=== PATIENT | female | born 1985 | race Caucasian/White ===

== ENCOUNTER 2019-12-04 22:59 | Emergency (ER) | payer OTHER ==
[~2019-12-04] VITALS: Ht 177 cm; Wt 150.0 kg
[~2019-12-04 22:59] MED LIST: AMOX500C2; CPR500T PO; DOCU100T7; FLINTSTONE1 TAB.CHE4 PO; FRS325T; HYDR-3720 PO; HYDR1TAB PO; IBP200T PO; IBP800T; MTF500T PO; MUPI22OI TP; PROP1TAB77; SULF1TAB38; SULF1TAB38 PO; [UNRECOGNIZED DRUG - REMARK]
--- OUTSIDE RECORDS SUMMARY | 2019-12-04 23:05 | XMS REPORT | Continuity of Care Document ---
Author Organization Unknown Address Unknown Phone Unavailable Allergies There is no data. Medications There is no data. Problems There is no data. Procedures There is no data. Results Test Result Range VITAMIN D, 25-H - 09/30/19 10:20 VITAMIN D,25-OH,TOTAL,IA 14 ng/mL 30-10 0 Encounters ACCT No. Visit Date/Time Discharge Status Pt. Type Provider Facility Loc./Unit Complaint [id number] 10/23/2019 16:00:00 10/23/2019 23:59: 59 CLS Outpatient IDA WATTERS [facility] [id number] 09/30/2019 09:40:00 Document Registration
[2019-12-04] MEDS ORDERED: LACTATED RINGERS 1,000 ML IV ONE (23:10)
[2019-12-04] MEDS ORDERED: ONDANSETRON 4 MG/2 ML (SDV) Z0FRAN IVP ONE (23:15)
[2019-12-04 23:16] LABS: BILIRUBIN,URINE NEGATIVE (NEGATIVE); CLARITY,URINE CLOUDY; COLOR,URINE RED; GLUCOSE, URINE (UA) TRACE (NEGATIVE); KETONES,URINE TRACE (NEGATIVE); LEUKOCYTE ESTERASE ,URINE NEGATIVE (NEGATIVE); NITRITE,URINE POSITIVE (NEGATIVE); PROTEIN,URINE 2+ (NEGATIVE)
[2019-12-04 23:24] LABS: BASOPHILS % (AUTO) 0 % (0-10); EOSINOPHILS # (AUTO) 0.1 10^3/uL (0.0-0.3); EOSINOPHILS % (AUTO) 1 % (0-10); HEMATOCRIT 40 % (35-52); HEMOGLOBIN 13.4 G/DL (11.5-16.0); LYMPHOCYTES # (AUTO) 1.5 X 10^3 (1.0-4.0); LYMPHOCYTES % (AUTO) 13 % (12-44); MEAN CORPUSCULAR HEMOGLOBIN 28 PG (25-34); MEAN CORPUSCULAR HGB CONC 33 G/DL (32-36); MEAN CORPUSCULAR VOLUME 83 FL (80-99); MEAN PLATELET VOLUME 11.3 FL (7.4-10.4); MONOCYTES # (AUTO) 0.7 X 10^3 (0.0-1.0); MONOCYTES % (AUTO) 6 % (0-12); NEUTROPHILS # (AUTO) 9.6 X 10^3 (1.8-7.8); NEUTROPHILS % (AUTO) 81 % (42-75); PLATELET COUNT 291 10^3/uL (130-400); RED CELL DISTRIBUTION WIDTH 14.4 % (10.0-14.5); WHITE BLOOD COUNT 11.9 10^3/uL (4.3-11.0)
[2019-12-04 23:25] LABS: BACTERIA,URINE TRACE /HPF; RBC,URINE TNTC /HPF
[2019-12-04 23:30] LABS: AMPHETAMINE SCREEN, URINE NEGATIVE (NEGATIVE); BARBITURATE SCREEN URINE NEGATIVE (NEGATIVE); BENZODIAZEPINES SCREEN URINE NEGATIVE (NEGATIVE); CANNABINOID SCREEN, URINE NEGATIVE (NEGATIVE); COCAINE SCREEN URINE NEGATIVE (NEGATIVE); METHADONE STAT NEGATIVE (NEGATIVE); METHAMPHETAMINE SCREEN URINE S NEGATIVE (NEGATIVE); OPIATE SCREEN URINE NEGATIVE (NEGATIVE); OXYCODONE STAT NEGATIVE (NEGATIVE); PROPOXYPHENE STAT NEGATIVE (NEGATIVE); TRICYCLIC ANTIDEPRESSANTS SCRE NEGATIVE (NEGATIVE)
[2019-12-04 23:35] LABS: ALBUMIN 4.1 GM/DL (3.2-4.5); CHLORIDE 108 MMOL/L (98-107); POTASSIUM 4.3 MMOL/L (3.6-5.0); SODIUM 138 MMOL/L (135-145)
[2019-12-04 23:36] LABS: AMYLASE 49 U/L (25-125)
[2019-12-04 23:37] LABS: GLUCOSE 147 MG/DL (70-105)
--- NOTE | 2019-12-04 23:37 | ED Abdominal Pain ---
General Chief Complaint: Abdominal/GI Problems Stated Complaint: ABD PAIN Nursing Triage Note: Pt ambulates to RM 5 with c/o diffused abd pain/N/V since 1300 today unrelieved with ibuprofen. Pt denies any fever/chills at this time. Sepsis Screen: No Definite Risk Source of Information: Patient History of Present Illness Date Seen by Provider: Dec 04, 2019 Time Seen by Provider: 23:10 Initial Comments PT ARRIVES VIA POV FROM HOME C/O ABDOMINAL PAIN STATES SHE STARTED HER PERIOD YESTERDAY ( NORMAL, NO CONTROL ) STATES SHE HAS ALWAYS HAD VERY HEAVY AND VERY PAINFUL PERIODS SINCE SHE STARTED A TEENAGER, AND STATES PAIN IS ALWAYS REALLY BAD IN RLQ WITH HER PERIODS STATES SHE TAKES IBUPROFEN EVERY 6 HOURS SINCE YESTERDAY FOR MENSTRUAL CRAMPS HAS USED 5 PADS TODAY STATES AROUND 1300 TODAY WHILE SHE WAS EATING A SALAD FOR LUNCH AT [facility], SHE BEGAN TO GET NAUSEATED AND HAVING DRY HEAVES AND PAIN IN ABDOMEN IS NOW ALL OVER ( BUT STILL WORSE IN RLQ). PAIN MOVES AROUND ALL OVER ABDOMEN STATES SHE "COULDN'T KEEP IBUPROFEN DOWN" STATES SHE HAS HAD SEVERAL SMALL BM'S TODAY--NORMAL FOR HER. HAS CHRONIC CONSTIPATION AND DIARRHEA. NO URINARY SYMPTOMS NO FEVER--GOT HOT AND SWEATY RIGHT AFTER SHE GOT NAUSEATED AND BEGAN HAVING DRY HEAVES. NO COUGH OR URI SYMPTOMS NO KNOWN SICK CONTACTS OR SUSPICIOUS FOODS NO KNOWN EXPOSURE TO COVID-19 WORKS A THERAPIST PT HAS HAD APPENDECTOMY AND CHOLECYSTECTOMY HAD LAPAROSCOPY X 1 AT AGE 18 AND WAS TOLD SHE HAD ENDOMETRIOSIS PT IS NOT ON CONTROL STATES SHE JUST MOVED BACK HERE IN [place], FROM [place], IN THE MIDDLE OF COVID-19 PANDEMIC AND MULTISTATE LOCKDOWNS, INCLUDING [facility] SHE WAS SICK IN [place], AND TESTED NEGATIVE FOR COVID-19 AT THAT TIME. HAS NOT HAD THOSE SYMPTOMS SINCE AND HAS NOT BEEN RE-TESTED. PCP: H[facility]Y Allergies and Home Medications Allergies Coded Allergies: Levofloxacin (Unverified Allergy, Mild, 07/06/09) Metronidazole (Unverified Allergy, Mild, 07/06/09) Meperidine (Verified Allergy, Unknown, 12/13/05) ketorolac (Verified Allergy, Unknown, 12/13/05) Home Medications Hydrocodone Bit/Acetaminophen 1 Each Tablet, 1-2 EACH PO Q4HR PRN Prescribed by: JENNIFER VILLANUEVA on 01/11/112328 Hyoscyamine Sulfate 0.125 Mg Tab.subl, 0.25 MG SL Q4H Prescribed by: NIDHI FRANCIS on 12/05/1948 Ibuprofen 200 Mg Tab, 800 MG PO TID, (Reported) Ibuprofen 800 Mg Tablet, 800 MG PO Q6H PRN for PAIN-MILD Prescribed by: NIDHI FRANCIS on 12/05/1948 Multivitamins W-Iron 1 Tab.chew Tab.chew, 1 TAB PO DAILY, (Reported) Nitrofurantoin Monohyd/M-Cryst 100 Mg Capsule, 1 TAB PO BID Prescribed by: NIDHI FRANCIS on 12/05/1948 Ondansetron 8 Mg Tab.rapdis, 8 MG PO Q4H PRN for NAUSEA/VOMITING Prescribed by: NIDHI FRANCIS on 12/05/1948 Patient Home Medication List Home Medication List Reviewed: Yes Review of Systems Review of Systems Constitutional: see HPI; No fever EENTM: No Symptoms Reported Respiratory: No Symptoms Reported Cardiovascular: No Symptoms Reported Gastrointestinal: See HPI, Abdominal Pain; Denies Constipated, Denies Diarrhea; Nausea, Vomiting Genitourinary: See HPI Musculoskeletal: no symptoms reported; No back pain Skin: No no symptoms reported Psychiatric/Neurological: No Symptoms Reported Endocrine: No Symptoms Reported Hematologic/Lymphatic: No Symptoms Reported Past Cevzsvk-Annevh-Lrvfld Hx Past Med/Social Hx: Reviewed and Corrections made Patient Social History Alcohol Use: Rarely Uses Recreational Drug Use: No Smoking Status: Never a Smoker 2nd Hand Smoke Exposure: No Recent Foreign Travel: No Contact w/Someone Who Travel: No Recent Infectious Disease Expo: No Recent Hopitalizations: Yes (ABSCESS ON RIGHT BUTTOCK) Past Medical History Surgeries: Yes (WISDOM TEETH REMOVAL;DX LAPAROSCOPY FOR CPP;APPY;DIANELYS;T&A) Abdominal, Adenoidectomy, Appendectomy, Gallbladder, Tonsillectomy Respiratory: No Cardiac: No Neurological: Yes Headaches /Migraines Reproductive Disorders: Yes (CHRONIC PELVIC PAIN; DYSMENORRHEA) Female Reproductive Disorders: Menstrual Problems, Endometriosis Genitourinary: No Gastrointestinal: Yes (H.PYLORI-TREATED X 2-DX WITH BREATH TEST;CHRONIC ABDOMINAL PAIN ) Gastroesophageal Reflux, Chronic Constipation, Chronic Diarrhea Musculoskeletal: Yes Chronic Back Pain Endocrine: Yes (OBESITY) HEENT: No Cancer: No Psychosocial: No Integumentary: No Blood Disorders: No Physical Exam Vital Signs Vital Signs - First Documented 12/04/19 23:08 Temp 36.3 Pulse 75 Resp 20 B/P (MAP) 129/91 (104) Pulse Ox 97 O2 Delivery Room Air Capillary Refill : Less Than 3 Seconds Height/Weight/BMI Height: '" Weight: lbs. oz. kg; 47.00 BMI Method:Stated General Appearance: obese, other (MOANING, DRAMATIC, HOLDING EPIGASTRIC AREA) Neck: normal inspection Respiratory: normal breath sounds, no respiratory distress, no accessory muscle use Cardiovascular: regular rate, rhythm Gastrointestinal: normal bowel sounds, soft, guarding; No rebound; tenderness (DIFFUSE TENDERNESS, BUT IS MOST TENDER IN RLQ); No hernia, No mass Extremities: normal inspection, normal capillary refill Back: no CVA tenderness Neurologic/Psychiatric: typist II-XII nml as tested, no motor/sensory deficits, alert, oriented x 3 Skin: normal color, warm/dry Progress/Results/Core Measures Results/Orders Lab Results Laboratory Tests Test 12/04/19 23:08 12/04/19 23:18 Range/Units Urine Color RED H Urine Clarity CLOUDY Urine pH 5.0 5-9 Urine Specific [place] >=1.030 1.016-1.022 Urine Protein 2+ H NEGATIVE Urine Glucose (UA) TRACE H NEGATIVE Urine Ketones TRACE H NEGATIVE Urine Nitrite POSITIVE H NEGATIVE Urine Bilirubin NEGATIVE NEGATIVE Urine Urobilinogen 1.0 < = 1.0 MG/DL Urine Leukocyte Esterase NEGATIVE NEGATIVE Urine RBC (Auto) 3+ H NEGATIVE Urine RBC TNTC H /HPF Urine WBC NONE /HPF Urine Crystals NONE /LPF Urine Bacteria TRACE /HPF Urine Casts NONE /LPF Urine Mucus NEGATIVE /LPF Urine Culture Indicated YES Urine Opiates Screen NEGATIVE NEGATIVE Urine Oxycodone Screen NEGATIVE NEGATIVE Urine Methadone Screen NEGATIVE NEGATIVE Urine Propoxyphene Screen NEGATIVE NEGATIVE Urine Barbiturates Screen NEGATIVE NEGATIVE Ur Tricyclic Antidepressants Screen NEGATIVE NEGATIVE Urine Phencyclidine Screen NEGATIVE NEGATIVE Urine Amphetamines Screen NEGATIVE NEGATIVE Urine Methamphetamines Screen NEGATIVE NEGATIVE Urine Benzodiazepines Screen NEGATIVE NEGATIVE Urine Cocaine Screen NEGATIVE NEGATIVE Urine Cannabinoids Screen NEGATIVE NEGATIVE White Blood Count 11.9 H 4.3-11.0 10^3/uL Red Blood Count 4.86 4.35-5.85 10^6/uL Hemoglobin 13.4 11.5-16.0 G/DL Hematocrit 40 35-52 % Mean Corpuscular Volume 83 80-99 FL Mean Corpuscular Hemoglobin 28 25-34 PG Mean Corpuscular Hemoglobin Concent 33 32-36 G/DL Red Cell Distribution Width 14.4 10.0-14.5 % Platelet Count 291 130-400 10^3/uL Mean Platelet Volume 11.3 H 7.4-10.4 FL Neutrophils (%) (Auto) 81 H 42-75 % Lymphocytes (%) (Auto) 13 12-44 % Monocytes (%) (Auto) 6 0-12 % Eosinophils (%) (Auto) 1 0-10 % Basophils (%) (Auto) 0 0-10 % Neutrophils # (Auto) 9.6 H 1.8-7.8 X 10^3 Lymphocytes # (Auto) 1.5 1.0-4.0 X 10^3 Monocytes # (Auto) 0.7 0.0-1.0 X 10^3 Eosinophils # (Auto) 0.1 0.0-0.3 10^3/uL Basophils # (Auto) 0.0 0.0-0.1 10^3/uL Sodium Level 138 135-145 MMOL/L Potassium Level 4.3 3.6-5.0 MMOL/L Chloride Level 108 H 98-107 MMOL/L Carbon Dioxide Level 18 L 21-32 MMOL/L Anion Gap 12 5-14 MMOL/L Blood Urea Nitrogen 11 7-18 MG/DL Creatinine 0.86 0.60-1.30 MG/DL Estimat Glomerular Filtration Rate > 60 BUN/Creatinine Ratio 13 Glucose Level 147 H 70-105 MG/DL Calcium Level 9.0 8.5-10.1 MG/DL Corrected Calcium 8.9 8.5-10.1 MG/DL Magnesium Level 1.9 1.6-2.4 MG/DL Total Bilirubin 0.3 0.1-1.0 MG/DL Aspartate Amino Transf (AST/SGOT) 16 5-34 U/L Alanine Aminotransferase (ALT/SGPT) 11 0-55 U/L Alkaline Phosphatase 59 40-136 U/L Total Protein 7.4 6.4-8.2 GM/DL Albumin 4.1 3.2-4.5 GM/DL Amylase Level 49 25-125 U/L Lipase 28 8-78 U/L Serum Alcohol < 10 <10 MG/DL My Orders Orders - PENNY,NIDHI K DO Ed Iv/Invasive Line Start (12/04/19 23:10) Urine Bedside (12/04/19 23:10) Alcohol (12/04/19 23:10) Amylase (12/04/19 23:10) Cbc With Automated Diff (12/04/19 23:10) Comprehensive Metabolic Panel (12/04/19 23:10) Drug Screen Stat (Urine) (12/04/19 23:10) Lipase (12/04/19 23:10) Magnesium (12/04/19 23:10) Ua Culture If Indicated (12/04/19 23:10) Ed Iv/Invasive Line Start (12/04/19 23:10) Lactated Ringers (Lr 1000 Ml Iv Solution (12/04/19 23:10) Ondansetron Injection (Zofran Injectio (12/04/19 23:15) Urine Culture (12/04/19 23:08) Acute Abd Series (12/05/19 00:01) Ct Abd/Pelvis Wo(Kidney Stone) (12/05/19 00:01) Hyoscyamine Sl Tablet (Levsin Sl Tablet) (12/05/19 01:00) Ibuprofen Tablet (Motrin Tablet) (12/05/19 01:00) Rx-Hyoscyamine Tab (Rx-Levsin Sl) (12/05/19 00:47) Rx-Nitrofurantoin [place] (Rx-Macrobid) (12/05/19 00:47) Rx-Ondansetron Po (Rx-Zofran Po) (12/05/19 00:47) Rx-Hyoscyamine Tab (Rx-Levsin Sl) (12/05/19 00:56) Rx-Nitrofurantoin [place] (Rx-Macrobid) (12/05/19 00:54) Rx-Ondansetron Po (Rx-Zofran Po) (12/05/19 00:55) Medications Given in ED Current Medications Medications Dose Ordered Sig/Alisha Route Start Time Stop Time Status Last Admin Dose Admin Hyoscyamine Sulfate 0.25 mg ONCE ONCE PO 12/05/19 01:00 12/05/19 01:01 DC 12/05/19 01:01 0.25 MG Ibuprofen 800 mg ONCE ONCE PO 12/05/19 01:00 12/05/19 01:01 DC 12/05/19 01:01 800 MG Lactated Ringer's 1,000 ml @ 0 mls/hr Q0M ONCE IV 12/04/19 23:10 12/04/19 23:12 DC 12/04/19 23:24 0 MLS/HR Ondansetron HCl 4 mg ONCE ONCE IVP 12/04/19 23:15 12/04/19 23:16 DC 12/04/19 23:24 4 MG Vital Signs/I&O 12/04/19 12/05/19 23:08 01:08 Temp 36.3 36.3 Pulse 75 69 Resp 20 20 B/P (MAP) 129/91 (104) 118/67 (104) Pulse Ox 97 97 O2 Delivery Room Air Room Air Blood Pressure Mean: 104 Progress Progress Note : Progress Note PT GIVEN ZOFRAN FOR NAUSEA WITH IMPROVEMENT--NO VOMITING DURING ER STAY PT DECLINED PAIN MEDICATIONS--STATES SHE JUST WANTS IBUPROFEN 800 MG--STATES "MY MOM WAS AN ADDICT AND I DON'T WANT ANY PAIN MEDICATION" UNEVENTFUL ER STAY Diagnostic Imaging Comments ABDOMEN XRAYS--NO ACUTE PROCESS, PENDING RADIOLOGIST REVIEW CT ABDOMEN/PELVIS--NO ACUTE PROCESS, PER [facility] VIA FAX AT 0038 Reviewed: Reviewed by Me Departure Impression Primary Impression: Dysmenorrhea Additional Impression: UTI (urinary tract infection) Disposition: 01 HOME, SELF-CARE Condition: Stable Departure-Patient Inst. Referrals: [facility]/NURY (PCP) Primary Care Physician IAD WATTERS (Family) Primary Care Physician Patient Instructions: Severe Abdominal Pain, Adult (DC), Menstrual Cramps (DC), Urinary Tract Infection, Adult (DC) Add. Discharge Instructions: CLEAR LIQUIDS--WATER, BROTH, JELLO, GATORADE BRATS DIET--BANANAS, RICE, APPLESAUCE, TOAST, SALTINES FOLLOW UP WITH YOUR DR IN 2-3 DAYS IF NO BETTER All discharge instructions reviewed with patient and/or family. Voiced understanding. Scripts Ondansetron (Ondansetron Odt) 8 Mg Tab.rapdis 8 MG PO Q4H PRN for NAUSEA/VOMITING, #10 TAB Prov: NIDHI FRANCIS DO 12/05/19 Nitrofurantoin Monohyd/M-Cryst (Macrobid 100 mg Capsule) 100 Mg Capsule 1 TAB PO BID, #20 CAP Prov: NIDHI FRANCIS DO 12/05/19 Hyoscyamine Sulfate (Levsin-Sl) 0.125 Mg Tab.subl 0.25 MG SL Q4H, #10 TAB Prov: NIDHI FRANCIS DO 12/05/19 Ibuprofen (Ibuprofen) 800 Mg Tablet 800 MG PO Q6H PRN for PAIN-MILD, #20 TAB Prov: NIDHI FRANCIS DO 12/05/19 NIDHI FRANCIS DO Dec 04, 2019 23:37
[2019-12-04 23:38] LABS: CARBON DIOXIDE 18 MMOL/L (21-32); TOTAL PROTEIN 7.4 GM/DL (6.4-8.2)
[2019-12-04 23:39] LABS: BILIRUBIN,TOTAL 0.3 MG/DL (0.1-1.0)
[2019-12-04 23:41] LABS: ALKALINE PHOSPHATASE 59 U/L (40-136); CREATININE SERUM 0.86 MG/DL (0.60-1.30); GFR ESTIMATED > 60
[2019-12-04 23:42] LABS: BUN/CREATININE RATIO 13
[2019-12-04 23:44] LABS: ALANINE AMINOTRANSFERASE 11 U/L (0-55); MAGNESIUM 1.9 MG/DL (1.6-2.4)
[2019-12-04 23:45] LABS: LIPASE 28 U/L (8-78)
[2019-12-05] MEDS ORDERED: RX-ONDANSETRON 4 MG ODT (ZOFRAN) PPK #4 PO STA (00:47)
[2019-12-05] MEDS ORDERED: RX-NITROFURANTOIN 100 MG (MACROBID) CAP PPK#2 PO STA (00:47)
[2019-12-05] MEDS ORDERED: RX-HYOSCYAMINE 0.125 MG SL (LEVSIN) PPK#6 SL STA (00:47)
[2019-12-05] MEDS ORDERED: NITR-65 PO (00:49)
[2019-12-05] MEDS ORDERED: HYOS0.1283 SL (00:49)
[2019-12-05] MEDS ORDERED: ONDA8TAB13 PO (00:49)
[2019-12-05] MEDS ORDERED: IBUP-1780 PO (00:49)
[2019-12-05] MEDS ORDERED: RX-NITROFURANTOIN 100 MG (MACROBID) CAP PPK#2 PO ONE (00:54)
[2019-12-05] MEDS ORDERED: RX-ONDANSETRON 4 MG ODT (ZOFRAN) PPK #4 ONE (00:55)
[2019-12-05] MEDS ORDERED: RX-HYOSCYAMINE 0.125 MG SL (LEVSIN) PPK#6 ONE (00:56)
[2019-12-05] MEDS ORDERED: IBUPROFEN 800 MG (MOTRIN) TAB PO ONE (01:00)
[2019-12-05] MEDS ORDERED: HYOSCYAMINE 0.125 MG (LEVSIN) TAB PO ONE (01:00)
[2019-12-05 01:08] VITALS: BP 118/67
--- NOTE | 2019-12-05 05:24 | Diagnostic Imaging Report ---
INDICATION: Abdominal pain COMPARISON: None FINDINGS: Supine and upright views of the abdomen show a nondistended bowel gas pattern. No abnormal air fluid levels or free intraperitoneal air is seen. No abnormal extraosseous calcifications are seen. Bony and soft tissue structures are within normal limits. No organomegaly is identified. Accompanying upright chest shows normal heart size and pulmonary vascularity. The lungs are well aerated and clear. The mediastinum is normal in appearance. IMPRESSION: 1. No bowel obstruction or free air. 2. Normal chest. No pneumonia or pulmonary edema. Dictated by: Dictated on workstation # [id number]
--- NOTE | 2019-12-05 07:29 | Diagnostic Imaging Report ---
PROCEDURE: CT urinary tract, rule out kidney stone. TECHNIQUE: Multiple contiguous axial images were obtained through the abdomen and pelvis without the use of intravenous contrast. Auto Exposure Controls were utilized during the CT exam to meet ALARA standards for radiation dose reduction. INDICATION: Right-sided abdominal pain. Nausea and vomiting. COMPARISON: None FINDINGS: Included portions of the lung bases are clear. CT ABDOMEN: Normal appendix cannot be adequately identified, but appears to be surgically absent. Small bowel loops are nondistended. The kidneys, adrenal glands, spleen, pancreas, and liver have an unremarkable noncontrast CT appearance. There is no loculated fluid collection, free fluid, nor free air within the abdomen. No abnormal mesenteric or retroperitoneal adenopathy is seen. Osseous structures show no acute abnormalities. CT PELVIS: Urinary bladder is unopacified and nondistended. No calculi are seen within the urinary bladder. Trace free fluid is noted within the pelvis. There is no loculated fluid collection or free air. No abnormal adenopathy is identified. Osseous structures show no acute abnormalities. IMPRESSION: 1. Trace free fluid within the pelvis; possibly physiologic. 2. Otherwise, no acute abnormalities seen within the abdomen or pelvis. Dictated by: Dictated on workstation # [id number]
== END 2019-12-05 01:08 | disposition home or self-care (01) ==
LOC: EDUNIT# 22:59 → ER 23:01
DX: N94.6 Dysmenorrhea, unspecified (principal); N39.0 Urinary tract infection, site not specified; G43.909 Migraine, unspecified, not intractable, without status migrainosus; E66.9 Obesity, unspecified; G89.29 Other chronic pain; M54.9 Dorsalgia, unspecified; K52.9 Noninfective gastroenteritis and colitis, unspecified; Z79.891 Long term (current) use of opiate analgesic; Z88.1 Allergy status to other antibiotic agents; Z88.5 Allergy status to narcotic agent; Z88.6 Allergy status to analgesic agent; Z68.42 Body mass index [BMI] 45.0-49.9, adult; Z88.8 Allergy status to other drugs, medicaments and biological substances
CPT/HCPCS: 74022; 74176; 80053; 80306; 81000; 82150; 83690; 83735; 84703; 85025; 87077; 87088; 99284; G0480; 36415; 80320

== ENCOUNTER 2020-04-23 09:04 | Emergency (ER) | payer OTHER ==
[~2020-04-23] VITALS: Ht 177 cm; Wt 157.0 kg
[~2020-04-23 09:04] MED LIST changes: +HYOS0.1283 SL; +IBUP-1780 PO; +NITR-65 PO; +ONDA8TAB13 PO
[2020-04-23] MEDS ORDERED: ONDANSETRON 4 MG/2 ML (SDV) Z0FRAN IVP ONE (09:30)
[2020-04-23] MEDS ORDERED: LACTATED RINGERS 1,000 ML IV ONE (09:30)
[2020-04-23] MEDS ORDERED: ANTACID SUSP 30 ML UDC (MYLANTA) PO ONE (09:30)
[2020-04-23] MEDS ORDERED: FAMOTIDINE 20MG/2ML IV (PEPCID) IVP ONE (09:30)
[2020-04-23] MEDS ORDERED: LIDOCAINE 2% VISCOUS 15 ML UDC PO ONE (09:30)
[2020-04-23 10:16] LABS: BILIRUBIN,URINE 1+ (NEGATIVE); CLARITY,URINE CLEAR; COLOR,URINE YELLOW; GLUCOSE, URINE (UA) NEGATIVE (NEGATIVE); KETONES,URINE TRACE (NEGATIVE); LEUKOCYTE ESTERASE ,URINE TRACE (NEGATIVE); NITRITE,URINE POSITIVE (NEGATIVE); PROTEIN,URINE 2+ (NEGATIVE)
[2020-04-23 10:17] LABS: ALBUMIN 4.2 GM/DL (3.2-4.5); BASOPHILS % (AUTO) 0 % (0-10); EOSINOPHILS # (AUTO) 0.1 10^3/uL (0.0-0.3); EOSINOPHILS % (AUTO) 1 % (0-10); HEMATOCRIT 43 % (35-52); HEMOGLOBIN 13.6 g/dL (11.5-16.0); LYMPHOCYTES # (AUTO) 1.7 10^3/uL (1.0-4.0); LYMPHOCYTES % (AUTO) 18 % (12-44); MEAN CORPUSCULAR HEMOGLOBIN 28 pg (25-34); MEAN CORPUSCULAR HGB CONC 32 g/dL (32-36); MEAN CORPUSCULAR VOLUME 88 fL (80-99); MEAN PLATELET VOLUME 11.4 fL (9.0-12.2); MONOCYTES # (AUTO) 0.5 10^3/uL (0.0-1.0); MONOCYTES % (AUTO) 5 % (0-12); NEUTROPHILS # (AUTO) 6.9 10^3/uL (1.8-7.8); NEUTROPHILS % (AUTO) 75 % (42-75); PLATELET COUNT 300 10^3/uL (130-400); WHITE BLOOD COUNT 9.2 10^3/uL (4.3-11.0)
[2020-04-23 10:18] LABS: CHLORIDE 107 MMOL/L (98-107); POTASSIUM 4.1 MMOL/L (3.6-5.0); SODIUM 139 MMOL/L (135-145)
--- NOTE | 2020-04-23 10:18 | NUR ---
SEE CURRENT LIST FOR MEDS
[2020-04-23 10:19] LABS: CALCIUM 8.7 MG/DL (8.5-10.1)
[2020-04-23 10:20] LABS: GLUCOSE 145 MG/DL (70-105)
[2020-04-23 10:21] LABS: CARBON DIOXIDE 20 MMOL/L (21-32)
[2020-04-23 10:22] LABS: BILIRUBIN,TOTAL 0.5 MG/DL (0.1-1.0)
[2020-04-23 10:23] LABS: ALKALINE PHOSPHATASE 55 U/L (40-136)
[2020-04-23 10:24] LABS: GFR ESTIMATED > 60
[2020-04-23 10:25] LABS: BUN/CREATININE RATIO 15
[2020-04-23 10:26] LABS: ALANINE AMINOTRANSFERASE 13 U/L (0-55)
[2020-04-23 10:31] LABS: RBC,URINE >100 /HPF
[2020-04-23 10:32] LABS: BACTERIA,URINE FEW /HPF
[2020-04-23] MEDS ORDERED: NITR-65 PO (11:08)
[2020-04-23] MEDS ORDERED: ONDA4TAB11 SL (11:08)
[2020-04-23] MEDS ORDERED: HYOS0.1283 SL (11:08)
--- NOTE | 2020-04-23 11:09 | ED GI ---
General Chief Complaint: Abdominal/GI Problems Stated Complaint: N/V, DIAHRREA, COUGH,FEVER Nursing Triage Note: PT AMB TO RM 10 PT CO OF ABD STATES TESTED - FOR COVID ON SUNDAY. STATES HAS HAD ABD PAIN FOR 3 DAYS, STATES HAS BEEN VOMITING NON STOP SINCE 0500 THIS AM.DENIES FEVERS, STATES STARTED NEW MED LIPITOR APPROX 2 WEEKS AGO. PT STATES ALSO HAS DIARRHEA Sepsis Screen: No Definite Risk Source of Information: Patient Exam Limitations: No Limitations History of Present Illness Date Seen by Provider: Apr 23, 2020 Time Seen by Provider: 09:20 Initial Comments This 35-year-old young lady presents to the emergency room with complaints of abdominal pain in the epigastric region for about 3 days and nausea, vomiting, and diarrhea through the morning. She is tearful. She reports a history of hiatal hernia and H. pylori. She has gone through 3 rounds of treatment for H. pylori. She is surgically absent and appendix and gallbladder. She reports being tested for Covid 4 days ago with a negative result. She denies any respiratory symptoms or fever. She is also menstruating right now which exacerbates her symptoms as she sometimes has intense cramping with her menses. Allergies and Home Medications Allergies Coded Allergies: Levofloxacin (Unverified Allergy, Mild, 07/06/09) Metronidazole (Unverified Allergy, Mild, 07/06/09) Meperidine (Verified Allergy, Unknown, 12/13/05) ketorolac (Verified Allergy, Unknown, 12/13/05) Home Medications Hydrocodone Bit/Acetaminophen 1 Each Tablet, 1-2 EACH PO Q4HR PRN Prescribed by: JENNIFER VILLANUEVA on 01/11/11 2329 Hyoscyamine Sulfate 0.125 Mg Tab.subl, 0.25 MG SL Q4H Prescribed by: NIDHI FRANCIS on 12/05/19 0049 Hyoscyamine Sulfate 0.125 Mg Tab.subl, 1-2 TAB SL Q4H PRN for CRAMPS Prescribed by: NIKIA CLARK on 04/23/20 1108 Ibuprofen 200 Mg Tab, 800 MG PO TID, (Reported) Ibuprofen 800 Mg Tablet, 800 MG PO Q6H PRN for PAIN-MILD Prescribed by: NIDHI FRANCIS on 12/05/19 0049 Multivitamins W-Iron 1 Tab.chew Tab.chew, 1 TAB PO DAILY, (Reported) Nitrofurantoin Monohyd/M-Cryst 100 Mg Capsule, 1 TAB PO BID Prescribed by: NIDHI FRANCIS on 12/05/19 004 Nitrofurantoin Monohyd/M-Cryst 100 Mg Capsule, 1 TAB PO BID Prescribed by: NIKIA CLARK on 04/23/20 1108 Omeprazole 20 Mg Capsule.dr, 20 MG PO BID Prescribed by: NIKIA CLARK on 04/23/20 1111 Ondansetron 8 Mg Tab.rapdis, 8 MG PO Q4H PRN for NAUSEA/VOMITING Prescribed by: NIDHI FRANCIS on 12/05/19 004 Ondansetron 4 Mg Tab.rapdis, 4 MG SL Q4H PRN for NAUSEA/VOMITING Prescribed by: NIKIA CLARK on 04/23/20 1108 Patient Home Medication List Home Medication List Reviewed: Yes Review of Systems Review of Systems Constitutional: no symptoms reported EENTM: No Symptoms Reported Respiratory: No Symptoms Reported Cardiovascular: No Symptoms Reported Gastrointestinal: See HPI Genitourinary: See HPI Musculoskeletal: no symptoms reported Skin: no symptoms reported Psychiatric/Neurological: No Symptoms Reported Endocrine: No Symptoms Reported Hematologic/Lymphatic: No Symptoms Reported Past Rxqgfqw-Axqkbp-Ihsrea Hx Patient Social History Alcohol Use: Denies Use Recreational Drug Use: No Smoking Status: Never a Smoker 2nd Hand Smoke Exposure: No Recent Foreign Travel: No Contact w/Someone Who Travel: No Recent Infectious Disease Expo: No Recent Hopitalizations: Yes (ABSCESS ON RIGHT BUTTOCK) Past Medical History Surgeries: Yes (WISDOM TEETH REMOVAL;DX LAPAROSCOPY FOR CPP;APPY;DIANELYS;T&A) Abdominal, Adenoidectomy, Appendectomy, Gallbladder, Tonsillectomy Respiratory: No Cardiac: No Neurological: Yes Headaches /Migraines Last Menstrual Period: Apr 20, 2020 Reproductive Disorders: Yes (CHRONIC PELVIC PAIN; DYSMENORRHEA) Female Reproductive Disorders: Menstrual Problems, Endometriosis Genitourinary: No Gastrointestinal: Yes (H.PYLORI-TREATED X 2-DX WITH BREATH TEST;CHRONIC ABDOMINAL PAIN ) Gastroesophageal Reflux, Chronic Constipation, Chronic Diarrhea Musculoskeletal: Yes Chronic Back Pain Endocrine: Yes (OBESITY) HEENT: No Cancer: No Psychosocial: No Integumentary: No Blood Disorders: No Physical Exam Vital Signs Vital Signs - First Documented 04/23/20 09:14 Temp 36.9 Pulse 84 Resp 18 B/P (MAP) 129/82 (98) Pulse Ox 98 Capillary Refill : Less Than 3 Seconds Height/Weight/BMI Height: '" Weight: lbs. oz. kg; 50.00 BMI Method:Stated General Appearance: WD/WN, mild distress HEENT: PERRL/EOMI, normal ENT inspection Neck: normal inspection Respiratory: lungs clear, normal breath sounds, no respiratory distress Cardiovascular: regular rate, rhythm, no edema, no murmur Gastrointestinal: normal bowel sounds, soft; No distended; tenderness (Epigastrium) Extremities: normal inspection, no pedal edema Neurologic/Psychiatric: resolution analyst II-XII nml as tested, no motor/sensory deficits, alert, oriented x 3, other (Tearful and anxious) Skin: normal color, warm/dry Progress/Results/Core Measures Results/Orders Lab Results Laboratory Tests Test 04/23/20 09:20 04/23/20 09:40 Range/Units White Blood Count 9.2 4.3-11.0 10^3/uL Red Blood Count 4.85 3.80-5.11 10^6/uL Hemoglobin 13.6 11.5-16.0 g/dL Hematocrit 43 35-52 % Mean Corpuscular Volume 88 80-99 fL Mean Corpuscular Hemoglobin 28 25-34 pg Mean Corpuscular Hemoglobin Concent 32 32-36 g/dL Red Cell Distribution Width 13.4 10.0-14.5 % Platelet Count 300 130-400 10^3/uL Mean Platelet Volume 11.4 9.0-12.2 fL Immature Granulocyte % (Auto) 0 % Neutrophils (%) (Auto) 75 42-75 % Lymphocytes (%) (Auto) 18 12-44 % Monocytes (%) (Auto) 5 0-12 % Eosinophils (%) (Auto) 1 0-10 % Basophils (%) (Auto) 0 0-10 % Neutrophils # (Auto) 6.9 1.8-7.8 10^3/uL Lymphocytes # (Auto) 1.7 1.0-4.0 10^3/uL Monocytes # (Auto) 0.5 0.0-1.0 10^3/uL Eosinophils # (Auto) 0.1 0.0-0.3 10^3/uL Basophils # (Auto) 0.0 0.0-0.1 10^3/uL Immature Granulocyte # (Auto) 0.0 0.0-0.1 10^3/uL Sodium Level 139 135-145 MMOL/L Potassium Level 4.1 3.6-5.0 MMOL/L Chloride Level 107 98-107 MMOL/L Carbon Dioxide Level 20 L 21-32 MMOL/L Anion Gap 12 5-14 MMOL/L Blood Urea Nitrogen 12 7-18 MG/DL Creatinine 0.80 0.60-1.30 MG/DL Estimat Glomerular Filtration Rate > 60 BUN/Creatinine Ratio 15 Glucose Level 145 H 70-105 MG/DL Calcium Level 8.7 8.5-10.1 MG/DL Corrected Calcium 8.5 8.5-10.1 MG/DL Total Bilirubin 0.5 0.1-1.0 MG/DL Aspartate Amino Transf (AST/SGOT) 13 5-34 U/L Alanine Aminotransferase (ALT/SGPT) 13 0-55 U/L Alkaline Phosphatase 55 40-136 U/L Total Protein 7.0 6.4-8.2 GM/DL Albumin 4.2 3.2-4.5 GM/DL Lipase 29 8-78 U/L Serum Test, Qualitative NEGATIVE NEGATIVE Urine Color YELLOW Urine Clarity CLEAR Urine pH 5.0 5-9 Urine Specific [place] >=1.030 1.016-1.022 Urine Protein 2+ H NEGATIVE Urine Glucose (UA) NEGATIVE NEGATIVE Urine Ketones TRACE H NEGATIVE Urine Nitrite POSITIVE H NEGATIVE Urine Bilirubin 1+ H NEGATIVE Urine Urobilinogen 1.0 < = 1.0 MG/DL Urine Leukocyte Esterase TRACE H NEGATIVE Urine RBC (Auto) 3+ H NEGATIVE Urine RBC >100 H /HPF Urine WBC 5-10 H /HPF Urine Squamous Epithelial Cells NONE /HPF Urine Crystals NONE /LPF Urine Bacteria FEW H /HPF Urine Casts NONE /LPF Urine Mucus NEGATIVE /LPF Urine Culture Indicated YES My Orders Orders - NIKIA RAMIREZ MD Ondansetron Injection (Zofran Injectio (04/23/20 09:30) Famotidine Injection (Pepcid Injection) (04/23/20 09:30) Lidocaine 2% Viscous 15 Ml (Xylocaine Vi (04/23/20 09:30) Antacid Suspension (Mylanta Suspension (12/4/20 09:30) Ed Iv/Invasive Line Start (04/23/20 09:28) Lactated Ringers (Lr 1000 Ml Iv Solution (04/23/20 09:30) Hcg,Qualitative Serum (04/23/20 09:28) Lipase (04/23/20 09:28) Cbc With Automated Diff (04/23/20 10:09) Comprehensive Metabolic Panel (04/23/20 10:09) Ua Culture If Indicated (04/23/20 10:09) Urine Culture (04/23/20 09:40) Medications Given in ED Vital Signs/I&O 04/23/20 04/23/20 09:14 11:21 Temp 36.9 Pulse 84 62 Resp 18 18 B/P (MAP) 129/82 (98) 133/90 (98) Pulse Ox 98 98 Blood Pressure Mean: 98 Progress Progress Note : Progress Note Work-up was unremarkable except for pyuria. Patient was treated with GI cocktail, Zofran, Pepcid, and IV fluids with good improvement. See discharge instructions. Departure Impression Primary Impression: Epigastric pain Additional Impressions: Nausea vomiting and diarrhea Urinary tract infection Disposition: 01 HOME, SELF-CARE Condition: Improved Departure-Patient Inst. Decision time for Depature: 11:05 Referrals: [facility]/NURY (PCP) Primary Care Physician IDA WATTERS (Family) Primary Care Physician Patient Instructions: Severe Abdominal Pain, Adult (DC) Add. Discharge Instructions: Start with a clear liquid diet. Once your diarrhea and vomiting resolve, gradually advance your diet with small quantities of bland food as tolerated. Avoid milk products or fatty or greasy foods for about 48 hours after your diarrhea resolves. Use the Zofran (ondansetron) as prescribed for nausea vomiting. Use Levsin (hyoscyamine) as prescribed for diarrhea or cramping. Complete your antibiotic as prescribed. Please note Macrobid (nitrofurantoin) may turn your urine orange or reddish in color. Follow-up with your primary care provider next week. Discuss H. pylori testing and review urine culture results. Your pain should gradually improve over the next several days as you take antacid medications. Return to care if symptoms are worsening or if you develop new symptoms such as fever. All discharge instructions reviewed with patient and/or family. Voiced understanding. Scripts Omeprazole (Omeprazole) 20 Mg Capsule. 20 MG PO BID, #60 CAP Prov: NIKIA RAMIREZ MD 04/23/20 Nitrofurantoin Monohyd/M-Cryst (Macrobid 100 mg Capsule) 100 Mg Capsule 1 TAB PO BID, #14 CAP Prov: NIKIA RAMIREZ MD 04/23/20 Ondansetron (Ondansetron Odt) 4 Mg Tab.rapdis 4 MG SL Q4H PRN for NAUSEA/VOMITING, #10 TAB Prov: NIKIA RAMIREZ MD 04/23/20 Hyoscyamine Sulfate (Levsin-Sl) 0.125 Mg Tab.subl 1-2 TAB SL Q4H PRN for CRAMPS, #10 TAB 0 Refills Prov: NIKIA RAMIREZ MD 04/23/20 Copy Copies To 1: EDWARDO CORTES JOSHUA T MD Apr 23, 2020 11:09
[2020-04-23] MEDS ORDERED: OMEP20CA18 PO (11:11)
[2020-04-23 11:21] VITALS: BP 133/90
== END 2020-04-23 11:21 | disposition home or self-care (01) ==
LOC: EDUNIT# 09:04 → ER 09:06
DX: R10.13 Epigastric pain (principal); R11.2 Nausea with vomiting, unspecified; R19.7 Diarrhea, unspecified; N39.0 Urinary tract infection, site not specified; F41.9 Anxiety disorder, unspecified; K21.9 Gastro-esophageal reflux disease without esophagitis; G89.29 Other chronic pain; M54.9 Dorsalgia, unspecified; E66.9 Obesity, unspecified; Z68.43 Body mass index [BMI] 50.0-59.9, adult; Z88.1 Allergy status to other antibiotic agents; Z88.8 Allergy status to other drugs, medicaments and biological substances; Z20.828 Contact with and (suspected) exposure to other viral communicable diseases; Z79.891 Long term (current) use of opiate analgesic
CPT/HCPCS: 36415; 80053; 81000; 83690; 84703; 85025; 87077; 87088

== ENCOUNTER 2020-05-08 20:44 | Emergency (ER) | payer OTHER ==
[~2020-05-08] VITALS: Ht 177.8 cm; Wt 158.7 kg
[~2020-05-08 20:44] MED LIST changes: +OMEP20CA18 PO; +ONDA4TAB11 SL
[2020-05-08] MEDS ORDERED: NITROGLYCERIN 0.4 MG SL TABS BTL 25'S SL PRN (21:00)
[2020-05-08] MEDS ORDERED: ASPIRIN 81 MG CHEW (CHILDREN'S ASA) PO ONE (21:00)
[2020-05-08 21:06] LABS: BASOPHILS % (AUTO) 0 % (0-10); EOSINOPHILS # (AUTO) 0.1 10^3/uL (0.0-0.3); EOSINOPHILS % (AUTO) 1 % (0-10); HEMATOCRIT 40 % (35-52); HEMOGLOBIN 12.8 g/dL (11.5-16.0); LYMPHOCYTES # (AUTO) 2.9 10^3/uL (1.0-4.0); LYMPHOCYTES % (AUTO) 31 % (12-44); MEAN CORPUSCULAR HEMOGLOBIN 28 pg (25-34); MEAN CORPUSCULAR HGB CONC 32 g/dL (32-36); MEAN CORPUSCULAR VOLUME 86 fL (80-99); MEAN PLATELET VOLUME 11.2 fL (9.0-12.2); MONOCYTES # (AUTO) 0.7 10^3/uL (0.0-1.0); MONOCYTES % (AUTO) 7 % (0-12); NEUTROPHILS # (AUTO) 5.7 10^3/uL (1.8-7.8); NEUTROPHILS % (AUTO) 61 % (42-75); PLATELET COUNT 313 10^3/uL (130-400); WHITE BLOOD COUNT 9.3 10^3/uL (4.3-11.0)
[2020-05-08] MEDS ORDERED: ONDANSETRON 4 MG/2 ML (SDV) Z0FRAN ONE (21:14)
[2020-05-08] MEDS ORDERED: FAMOTIDINE 20MG/2ML IV (PEPCID) IVP ONE (21:15)
[2020-05-08] MEDS ORDERED: ANTACID SUSP 30 ML UDC (MYLANTA) PO ONE (21:15)
[2020-05-08] MEDS ORDERED: LIDOCAINE 2% VISCOUS 15 ML UDC PO ONE (21:15)
[2020-05-08 21:25] LABS: PROTHROMBIN TIME PATIENT 13.6 SEC (12.2-14.7)
[2020-05-08 21:34] LABS: BILIRUBIN,URINE NEGATIVE (NEGATIVE); CLARITY,URINE CLEAR; COLOR,URINE YELLOW; GLUCOSE, URINE (UA) NEGATIVE (NEGATIVE); KETONES,URINE NEGATIVE (NEGATIVE); LEUKOCYTE ESTERASE ,URINE NEGATIVE (NEGATIVE); NITRITE,URINE NEGATIVE (NEGATIVE); PH,URINE 5.5 (5-9); PROTEIN,URINE NEGATIVE (NEGATIVE)
[2020-05-08 21:34] LABS: ALANINE AMINOTRANSFERASE 16 U/L (0-55); ALBUMIN 4.1 GM/DL (3.2-4.5); ALKALINE PHOSPHATASE 65 U/L (40-136); AMYLASE 45 U/L (25-125); BILIRUBIN,TOTAL 0.5 MG/DL (0.1-1.0); BUN/CREATININE RATIO 13; CALCIUM 8.9 MG/DL (8.5-10.1); CARBON DIOXIDE 22 MMOL/L (21-32); CHLORIDE 105 MMOL/L (98-107); CREATINE KINASE 88 U/L (29-168); CREATININE SERUM 0.93 MG/DL (0.60-1.30); GFR ESTIMATED > 60; GLUCOSE 115 MG/DL (70-105); LIPASE 47 U/L (8-78); MAGNESIUM 1.9 MG/DL (1.6-2.4); POTASSIUM 3.8 MMOL/L (3.6-5.0); SODIUM 139 MMOL/L (135-145); TOTAL PROTEIN 7.2 GM/DL (6.4-8.2)
[2020-05-08 21:42] LABS: CREATINE KINASE MB 0.5 NG/ML (<6.6)
[2020-05-08 21:45] LABS: BACTERIA,URINE NEGATIVE /HPF
--- NOTE | 2020-05-08 21:53 | Diagnostic Imaging Report ---
INDICATION: Chest pain. COMPARISON: Prior examination from 12/05/2019. FINDINGS: The heart size, mediastinal configuration, and pulmonary vascularity are within normal limits. There is no pleural effusion, pneumothorax, or pneumonia. The osseous structures are unremarkable. IMPRESSION: No acute cardiopulmonary abnormality. Dictated by: Dictated on workstation # [id number]
--- NOTE | 2020-05-08 21:56 | ED Chest Pain ---
General Chief Complaint: Chest Pain Stated Complaint: L SIDE BACK AND CHEST PAIN Source: patient History of Present Illness Date Seen by Provider: May 08, 2020 Time Seen by Provider: 20:49 Initial Comments PT ARRIVES VIA POV FROM HOME C/O CHEST PAIN PAIN IS IN CENTER OF CHEST AND GOES THROUGH TO UPPER BACK PAIN BEGAN AN HOUR AGO, WHILE SITTING STATES IT HURTS TO TAKE A DEEP BREATH, NOTHING IMPROVES PAIN NO SHORTNESS OF BREATH NO PALPITATIONS NO SYNCOPE NO DIZZINESS SLIGHT NAUSEA, NO VOMITING. NO ABDOMINAL PAIN NO SWEATS NO SWELLING IN LEGS OR PAIN IN CALVES STATES SHE HAS BEEN REALLY TIRED TODAY AND KEPT FALLING ASLEEP WHILE WATCHING TV HAS BEEN UNDER ALOT OF STRESS LATELY, BUT TODAY WAS NOT PARTICULARLY STRESSFUL. 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 SEEN HERE 04/23/20 FOR C/O EPIGASTRIC PAIN FOLLOWED UP WITH H[facility]Y THIS WEEK AND WAS STARTED ON OMEPRAZOLE--TOOK FIRST DOSE AND THEN BEGAN TO HAVE PAINFUL SORES ON ROOF OF HER MOUTH AND TONGUE YESTERDAY WAS GIVEN A SCRIPT FOR PEPCID YESTERDAY, BUT HAS NOT TAKEN IT YET. STATES SHE HAS A HIATAL HERNIA AND GERD. HAD EGD AROUND THE TIME OF CHOLECYSTECTOMY PT HAS HAD AN APPENDECTOMY AND CHOLECYSTECTOMY NO FEVER OR RECENT ILLNESS NO COUGH NO SORE THROAT NO LOSS OF TASTE OR SMELL NO RECENT COVID TESTING, OR KNOWN EXPOSURE TO COVID-19 OR SICK CONTACTS PCP: HARDY, TOMMIE WATTERS PT JUST MOVED HERE IN [place], FROM [place] Allergies and Home Medications Allergies Coded Allergies: Levofloxacin (Unverified Allergy, Mild, 07/06/09) Metronidazole (Unverified Allergy, Mild, 07/06/09) Meperidine (Verified Allergy, Unknown, 12/13/05) ketorolac (Verified Allergy, Unknown, 12/13/05) Home Medications Hydrocodone Bit/Acetaminophen 1 Each Tablet, 1-2 EACH PO Q4HR PRN Prescribed by: JENNIFER VILLANUEVA on 01/11/11 4329 Hydroxyzine Pamoate 50 Mg Capsule, 50 MG PO Q6H PRN for ANXIETY Prescribed by: NIDHI FRANCIS on 05/09/20 0010 Hyoscyamine Sulfate 0.125 Mg Tab.subl, 0.25 MG SL Q4H Prescribed by: NIDHI FRANCIS on 12/05/19 0049 Hyoscyamine Sulfate 0.125 Mg Tab.subl, 1-2 TAB SL Q4H PRN for CRAMPS Prescribed by: NIKIA CLARK on 04/23/201107 Ibuprofen 200 Mg Tab, 800 MG PO TID, (Reported) Ibuprofen 800 Mg Tablet, 800 MG PO Q6H PRN for PAIN-MILD Prescribed by: NIDHI FRANCIS on 12/05/1948 Multivitamins W-Iron 1 Tab.chew Tab.chew, 1 TAB PO DAILY, (Reported) Nitrofurantoin Monohyd/M-Cryst 100 Mg Capsule, 1 TAB PO BID Prescribed by: NIDHI FRANCIS on 12/05/1948 Nitrofurantoin Monohyd/M-Cryst 100 Mg Capsule, 1 TAB PO BID Prescribed by: NIKIA CLARK on 04/23/201107 Omeprazole 20 Mg Capsule.dr, 20 MG PO BID Prescribed by: NIKIA CLARK on 04/23/20 1111 Ondansetron 8 Mg Tab.rapdis, 8 MG PO Q4H PRN for NAUSEA/VOMITING Prescribed by: NIDHI FRANCIS on 12/05/1948 Ondansetron 4 Mg Tab.rapdis, 4 MG SL Q4H PRN for NAUSEA/VOMITING Prescribed by: NIKIA CLARK on 04/23/201107 Sucralfate 1 Gm Tablet, 1 GM PO QID Prescribed by: NIDHI FRANCIS on 05/09/209 Tramadol HCl 50 Mg Tablet, 50 MG PO Q4H Prescribed by: NIDHI FRANCIS on 05/09/209 Patient Home Medication List Home Medication List Reviewed: Yes Review of Systems Review of Systems Constitutional: see HPI; No chills, No diaphoresis, No dizziness, No fever; malaise EENTM: See HPI; No Eye Pain, No Ear Pain; Mouth Pain; No Mouth Swelling, No Nose Congestion, No Throat Pain, No Throat Swelling Respiratory: No Symptoms Reported; Denies Cough, Denies Shortness of Air Cardiovascular: See HPI, Chest Pain; Denies Edema, Denies Irregular Heart Rate, Denies Lightheadedness, Denies Palpitations, Denies Syncope Gastrointestinal: See HPI; Denies Abdominal Pain, Denies Constipated, Denies Diarrhea; Nausea; Denies Vomiting Genitourinary: No Symptoms Reported Musculoskeletal: see HPI, back pain Skin: no symptoms reported Psychiatric/Neurological: Anxiety Endocrine: No Symptoms Reported, Other (BLOOD SUGAR 130 THIS AM) Hematologic/Lymphatic: No Symptoms Reported Past Rsypknw-Wciipd-Iriwgm Hx Past Med/Social Hx: Reviewed and Corrections made Patient Social History Alcohol Use: Rarely Uses Recreational Drug Use: No Smoking Status: Never a Smoker 2nd Hand Smoke Exposure: No Recent Foreign Travel: No Contact w/Someone Who Travel: No Recent Hopitalizations: Yes (ABSCESS ON RIGHT BUTTOCK) Past Medical History Surgeries: Yes (WISDOM TEETH REMOVAL;DX LAPAROSCOPY FOR CPP;APPY;DIANELYS;T&A) Abdominal, Adenoidectomy, Appendectomy, Gallbladder, Tonsillectomy Respiratory: No Cardiac: Yes High Cholesterol Neurological: Yes Headaches /Migraines Reproductive Disorders: Yes (CHRONIC PELVIC PAIN; DYSMENORRHEA) Female Reproductive Disorders: Menstrual Problems, Endometriosis Genitourinary: No Gastrointestinal: Yes (H.PYLORI-TREATED X 2-DX WITH BREATH TEST;CHRONIC ABDOMINAL PAIN ) Gastroesophageal Reflux, Chronic Constipation, Chronic Diarrhea, Hiatal Hernia, Gall Bladder Disease Musculoskeletal: Yes Chronic Back Pain Endocrine: Yes (OBESITY) Diabetes, Non-Insulin dep HEENT: No Cancer: No Psychosocial: Yes Anxiety Integumentary: Yes (ABSCESSES/I&D'S) Blood Disorders: No Family Medical History PAST SURGICAL HISTORY: -PERIRECTAL ABSCESS I&D WITH LAP CHOLECYSTECTOMY Physical Exam Vital Signs Vital Signs - First Documented 05/08/20 20:50 Temp 36.3 Pulse 96 Resp 22 B/P (MAP) 126/100 (109) Pulse Ox 98 O2 Delivery Room Air Capillary Refill : Height, Weight, BMI Height: '" Weight: lbs. oz. kg; 50.00 BMI Method:Stated General Appearance: No Apparent Distress, WD/WN, Anxious, Obese (MORBIDLY OBESE), Other (ANXIOUS, HYPERVENTILATING, CRYING UNCONTROLLABLY) Neck: Normal Inspection Respiratory: Normal Breath Sounds, No Accessory Muscle Use, No Respiratory Distress, Other (MODERATE TENDERNESS TO MID AND LEFT UPPER CHEST --PALPATION REPRODUCES PAIN ) Cardiovascular: Regular Rate, Rhythm, No Edema, No JVD, No Murmur, Normal Peripheral Pulses Gastrointestinal: Non Tender, Soft Extremity: Normal Inspection, No Pedal Edema Neurologic/Psychiatric: Alert, Oriented x3, No Motor/Sensory Deficits, clinical liaison II- XII Norm as Tested Skin: Normal Color, Warm/Dry; No Rash Progress/Results/Core Measures Results/Orders Lab Results Laboratory Tests Test 05/08/20 21:00 05/08/20 21:25 Range/Units White Blood Count 9.3 4.3-11.0 10^3/uL Red Blood Count 4.59 3.80-5.11 10^6/uL Hemoglobin 12.8 11.5-16.0 g/dL Hematocrit 40 35-52 % Mean Corpuscular Volume 86 80-99 fL Mean Corpuscular Hemoglobin 28 25-34 pg Mean Corpuscular Hemoglobin Concent 32 32-36 g/dL Red Cell Distribution Width 13.2 10.0-14.5 % Platelet Count 313 130-400 10^3/uL Mean Platelet Volume 11.2 9.0-12.2 fL Immature Granulocyte % (Auto) 0 % Neutrophils (%) (Auto) 61 42-75 % Lymphocytes (%) (Auto) 31 12-44 % Monocytes (%) (Auto) 7 0-12 % Eosinophils (%) (Auto) 1 0-10 % Basophils (%) (Auto) 0 0-10 % Neutrophils # (Auto) 5.7 1.8-7.8 10^3/uL Lymphocytes # (Auto) 2.9 1.0-4.0 10^3/uL Monocytes # (Auto) 0.7 0.0-1.0 10^3/uL Eosinophils # (Auto) 0.1 0.0-0.3 10^3/uL Basophils # (Auto) 0.0 0.0-0.1 10^3/uL Immature Granulocyte # (Auto) 0.0 0.0-0.1 10^3/uL Prothrombin Time 13.6 12.2-14.7 SEC INR Comment 1.0 0.8-1.4 Activated Partial Thromboplast Time 30 24-35 SEC Sodium Level 139 135-145 MMOL/L Potassium Level 3.8 3.6-5.0 MMOL/L Chloride Level 105 98-107 MMOL/L Carbon Dioxide Level 22 21-32 MMOL/L Anion Gap 12 5-14 MMOL/L Blood Urea Nitrogen 12 7-18 MG/DL Creatinine 0.93 0.60-1.30 MG/DL Estimat Glomerular Filtration Rate > 60 BUN/Creatinine Ratio 13 Glucose Level 115 H 70-105 MG/DL Calcium Level 8.9 8.5-10.1 MG/DL Corrected Calcium 8.8 8.5-10.1 MG/DL Magnesium Level 1.9 1.6-2.4 MG/DL Total Bilirubin 0.5 0.1-1.0 MG/DL Aspartate Amino Transf (AST/SGOT) 14 5-34 U/L Alanine Aminotransferase (ALT/SGPT) 16 0-55 U/L Alkaline Phosphatase 65 40-136 U/L Total Creatine Kinase 88 29-168 U/L Creatine Kinase MB 0.5 <6.6 NG/ML Troponin I < 0.028 <0.028 NG/ML B-Type Natriuretic Peptide < 10.0 <100.0 PG/ML Total Protein 7.2 6.4-8.2 GM/DL Albumin 4.1 3.2-4.5 GM/DL Amylase Level 45 25-125 U/L Lipase 47 8-78 U/L Serum Test, Qualitative NEGATIVE NEGATIVE Urine Color YELLOW Urine Clarity CLEAR Urine pH 5.5 5-9 Urine Specific [place] 1.025 H 1.016-1.022 Urine Protein NEGATIVE NEGATIVE Urine Glucose (UA) NEGATIVE NEGATIVE Urine Ketones NEGATIVE NEGATIVE Urine Nitrite NEGATIVE NEGATIVE Urine Bilirubin NEGATIVE NEGATIVE Urine Urobilinogen 0.2 < = 1.0 MG/DL Urine Leukocyte Esterase NEGATIVE NEGATIVE Urine RBC (Auto) 2+ H NEGATIVE Urine RBC NONE /HPF Urine WBC NONE /HPF Urine Squamous Epithelial Cells 2-5 /HPF Urine Crystals NONE /LPF Urine Bacteria NEGATIVE /HPF Urine Casts NONE /LPF Urine Mucus NEGATIVE /LPF Urine Culture Indicated NO My Orders Orders - NIDHI FRANCIS DO Ed Iv/Invasive Line Start (05/08/20 20:56) Ekg Tracing (05/08/20 20:56) O2 (05/08/20 20:56) Monitor-Rhythm Ecg Trace Only (05/08/20 20:56) Amylase (05/08/20 20:56) BNP (05/08/20 20:56) Cbc With Automated Diff (05/08/20 20:56) Comprehensive Metabolic Panel (05/08/20 20:56) Creatine Kinase (05/08/20 20:56) Creatine Kinase Mb (05/08/20 20:56) Hcg,Qualitative Serum (05/08/20 20:56) Lipase (05/08/20 20:56) Magnesium (05/08/20 20:56) Protime With Inr (05/08/20 20:56) Partial Thromboplastin Time (05/08/20 20:56) Troponin I (05/08/20 20:56) Chest 1 View, Ap/Pa Only (05/08/20 20:56) Nitroglycerin 0.4 Mg Btl 25's (Nitrostat (05/08/20 21:00) Aspirin Chewable Tablet (Baby Aspirin Ch (05/08/20 21:00) Famotidine Injection (Pepcid Injection) (05/08/20 21:15) Lidocaine 2% Viscous 15 Ml (Xylocaine Vi (05/08/20 21:15) Antacid Suspension (Mylanta Suspension (05/08/20 21:15) Ondansetron Injection (Zofran Injectio (05/08/20 21:14) Ua Culture If Indicated (05/08/20 21:26) Urine Bedside (05/08/20 21:26) Ct Angio Chest W (05/08/20 21:40) Iohexol Injection (Omnipaque 350 Mg/Ml 1 (05/08/20 23:15) Received Contrast (Hold Metformin- Contr (05/08/20 23:15) Sodium Chloride Flush (Catheter Flush Sy (05/08/20 23:15) Ns (Ivpb) (Sodium Chloride 0.9% Ivpb Bag (05/08/20 23:15) Rx-Tramadol Hcl (Rx-Ultram) (05/09/20 00:07) Rx-Hydroxyzine Pamoate (Rx-Vistaril) (05/09/20 00:07) Sucralfate Tablet (Carafate Tablet) (05/09/20 00:15) Medications Given in ED Current Medications Medications Dose Ordered Sig/Alisha Route Start Time Stop Time Status Last Admin Dose Admin Al Hydrox/Mg Hydrox/Simethicone 30 ml ONCE ONCE PO 05/08/20 21:15 05/08/20 21:16 DC 05/08/20 21:13 30 ML Aspirin 324 mg ONCE ONCE PO 05/08/20 21:00 05/08/20 21:01 DC 05/08/20 21:03 324 MG Famotidine 40 mg ONCE ONCE IVP 05/08/20 21:15 05/08/20 21:16 DC 05/08/20 21:11 40 MG Iohexol 100 ml ONCE ONCE IV 05/08/20 23:15 05/08/20 23:16 DC 05/08/20 23:15 95 ML Lidocaine HCl 15 ml ONCE ONCE PO 05/08/20 21:15 05/08/20 21:16 DC 05/08/20 21:13 15 ML Nitroglycerin 0.4 mg UD PRN SL 05/08/20 21:00 05/09/20 00:28 DC 05/08/20 21:03 0.4 MG Ondansetron HCl 4 mg STK-MED ONCE .ROUTE 05/08/20 21:14 05/08/20 21:18 DC 05/08/20 21:19 8 MG Sodium Chloride 10 ml NEEDED PRN IV 05/08/20 23:15 05/09/20 00:28 DC 05/08/20 23:16 10 ML Sodium Chloride 100 ml ONCE ONCE IV 05/08/20 23:15 05/08/20 23:16 DC 05/08/20 23:16 80 ML Sucralfate 1 gm ONCE ONCE PO 05/09/20 00:15 05/09/20 00:16 DC 05/09/20 00:22 1 GM Vital Signs/I&O 05/08/20 05/08/20 05/09/20 20:50 20:50 00:25 Temp 36.3 36.3 Pulse 96 78 Resp 22 18 B/P (MAP) 126/100 (109) 113/67 (109) Pulse Ox 98 97 O2 Delivery Room Air Room Air Progress Progress Note : Progress Note GIVEN ASPIRIN AND NTG X 1--NO RELIEF GIVEN GI COCKTAIL WHICH SHE IMMEDIATELY THREW UP, ALONG WITH A VERY LARGE AMOUNT OF PARTIALLY DIGESTED FOOD--STATES SHE JUST ATE DINNER JUST PRIOR TO ARRIVAL. GIVEN PEPCID AND ZOFRAN. LATER GIVEN A DOSE OF CARAFATE. PT CONTINUED TO CRY UNCONTROLLABLY AT TIMES THROUGHOUT ER STAY STATES SHE FEELS BETTER AT DISMISSAL Initial ECG Impression Date: May 08, 2020 Initial ECG Impression Time: 20:50 Initial ECG Rate: 91 Initial ECG Rhythm: Normal Sinus Initial ECG Impression: Normal Diagnostic Imaging Comments CXR--NO ACUTE PROCESS, PENDING RADIOLOGIST REVIEW CT CHEST ANGIOGRAM--NO OBVIOUS CENTRAL P.E. BUT SUBOPTIMAL STUDY.. OTHERWISE NO EVIDENCE OF ACUTE PROCESS. PER [facility] VIA FAX AT [phone] Reviewed: Reviewed by Me Departure Impression Primary Impression: Chest wall pain Additional Impressions: Gastroesophageal reflux disease Anxiety STOMATITIS DUE TO MEDICATION-OMEPRAZOLE, PER PT Disposition: HOME, SELF-CARE Condition: Improved Departure-Patient Inst. Referrals: [facility] (PCP) Primary Care Physician IDA WATTERS (Family) Primary Care Physician MICHAEL JULIEN DO Patient Instructions: Anxiety, Adult ED, Chest Pain (DC), Chest Pain That Is Not Caused by the Heart (DC), Acid Reflux and GERD in Adults (DC) Add. Discharge Instructions: CLEAR LIQUIDS--WATER, BROTH, JELLO, GATORADE BRATS DIET--BANANAS, RICE, APPLESAUCE, TOAST, SALTINES EAT SMALL AMOUNTS AT A TIME, START TAKING PEPCID IN THE MORNING CONTINUE YOUR REGULAR MEDICATIONS PRESCRIBED FOLLOW UP WITH [facility] [place] [facility] NEXT WEEK FOR FURTHER CARE FOLLOW UP WITH DR. JULIEN, GENERAL SURGEON, FOR POSSIBLE EGD All discharge instructions reviewed with patient and/or family. Voiced understanding. Scripts Sucralfate (Carafate) 1 Gm Tablet 1 GM PO QID, #60 TAB Prov: NIDHI FRANCIS DO 05/09/20 Hydroxyzine Pamoate (Hydroxyzine Pamoate) 50 Mg Capsule 50 MG PO Q6H PRN for ANXIETY, #15 CAP Prov: NIDHI FRANCIS DO 05/09/20 Tramadol HCl (Ultram) 50 Mg Tablet 50 MG PO Q4H for Pain, #20 TAB Prov: NIDHI FRANCIS DO 05/09/20 NIDHI FRANCIS DO May 08, 2020 21:56
[2020-05-08] MEDS ORDERED: IOHEXOL 350 MG/ML 100 ML (OMNIPAQUE 350) VIAL IV ONE (23:15)
[2020-05-08] MEDS ORDERED: NS 100 ML (IVPB) BAG IV ONE (23:15)
[2020-05-08] MEDS ORDERED: HOLD METFORMIN - RECEIVED CONTRAST 20 ML VIAL IV SCH (23:15)
[2020-05-08] MEDS ORDERED: CATHETER FLUSH 10 ML SYR IV PRN (23:15)
[2020-05-09] MEDS ORDERED: RX-TRAMADOL 50 MG (ULTRAM) TAB PPK#4 PO STA (00:07)
[2020-05-09] MEDS ORDERED: RX-HYDROXYZINE PAMOATE 25 MG CAP #4 PO STA (00:07)
[2020-05-09] MEDS ORDERED: TRAM-42 PO (00:10)
[2020-05-09] MEDS ORDERED: SUCR1TAB36 PO (00:10)
[2020-05-09] MEDS ORDERED: HYDR50CA3 PO (00:10)
[2020-05-09] MEDS ORDERED: SUCRALFATE 1 GM (CARAFATE) TAB PO ONE (00:15)
[2020-05-09 00:25] VITALS: BP 113/67
--- NOTE | 2020-05-09 06:17 | Diagnostic Imaging Report ---
PROCEDURE: CT angiography of the chest with contrast. TECHNIQUE: Multiple contiguous axial images were obtained through the chest after uneventful bolus administration of intravenous contrast. 3D reconstructed CTA MIP acquisitions were also performed. Auto Exposure Controls were utilized during the CT exam to meet ALARA standards for radiation dose reduction. INDICATION: Chest pain There are no prior CTA chest examinations available for comparison. The plain film examination of the chest performed prior to the study failed to show any sign of an acute cardiopulmonary abnormality. On this exam, the pulmonary arteries were not optimally opacified but there is no defect within the pulmonary arteries to indicate a pulmonary embolus. The aorta is not abnormally dilated and there is no sign of a dissection. The heart size is at the upper limits of normal. There are no coronary artery calcifications evident. There is no mediastinal or hilar adenopathy. The thyroid gland, where visualized, is unremarkable. The lungs are generally clear. There is no evidence for failure, pneumonia or for a pleural effusion. The sections through the upper abdomen failed to show any sign of an acute abnormality. As noted on the previous CT abdomen/pelvis exam of 12/05/2019 the gallbladder is surgically absent. The bone windows show no sign of a fracture or of a destructive lesion. There is no obvious breast mass. IMPRESSION: 1. There is no evidence for an acute cardiopulmonary abnormality. In particular, there is no sign of a pulmonary embolus or of an aortic dissection, although the pulmonary is were not well opacified and consequently difficult to assess for pulmonary embolus. 2. The gallbladder is surgically absent. 3. I agree with the [facility] interpretation of this exam. Dictated by: Dictated on workstation # [id number]
== END 2020-05-09 00:28 | disposition home or self-care (01) ==
LOC: EDUNIT# 20:44 → ER 20:45
DX: R07.89 Other chest pain (principal); K21.9 Gastro-esophageal reflux disease without esophagitis; F41.9 Anxiety disorder, unspecified; K12.1 Other forms of stomatitis; E66.01 Morbid (severe) obesity due to excess calories; Z68.43 Body mass index [BMI] 50.0-59.9, adult; Z88.1 Allergy status to other antibiotic agents; Z88.5 Allergy status to narcotic agent; Z88.6 Allergy status to analgesic agent; Z88.8 Allergy status to other drugs, medicaments and biological substances
CPT/HCPCS: 36415; 71045; 71275; 80053; 81000; 82150; 82550; 82553; 83690; 83735; 83880; 84484; 84703; 85025; 85610; 85730; 93005; 93041

== ENCOUNTER 2020-10-06 22:43 | Emergency (ER) | payer OTHER ==
[~2020-10-06] VITALS: Ht 177.8 cm; Wt 168.0 kg
[~2020-10-06 22:43] MED LIST changes: +HYDR50CA3 PO; +SUCR1TAB36 PO; +TRAM-42 PO
[2020-10-06 23:10] VITALS: BP 141/93
--- NOTE | 2020-10-06 23:50 | ED Integumentary General ---
General Chief Complaint: Skin/Wound Problems Stated Complaint: RASH ON STOMACH Nursing Triage Note: PRESENTS TO ED WITH C/O RASH LOCATED UNDER PANUS. VERBALIZES SHE RECENTLY FINISHED A ROUND OF ANTIBIOTIC FOR STREP THROAT AND THIS RASH HAS BECOME INCREAINGLY ITCHY AND PAINFUL. STATES SHE HAS USED HYDROCORTISONE AND TRIPLE ANTIBIOTIC AT HOME AND HAS HAD NO IMPROVEMENT. Source: patient (SOCRATESYANIRA NOYOLA STUDENT) History of Present Illness Date Seen by Provider: October 06, 2020 Time Seen by Provider: 23:30 Initial Comments Pt presents to ED via private conveyance with complaints of pain/irritation under her pannus. She states that it started about 3 days ago, and says that it might be associated with taking Amoxicillin beginning a week ago for a strep throat infection. She has tried various treatments, such as antibiotic ointment and dandruff shampoo with no benefit. She has taken 400mg Ibuprofen which has helped with the pain a small amount. She complains of 4/10 pain in her affected lower abd region. She states that she has been feeling hot for the past 2 days. She denies other symptoms of chest pain, SOB, N/V. Timing/Duration: other (3 days) Severity: moderate Location: torso (lower abd under pannus) Associated Symptoms: No fever, No headache, No numbness, No rash, No sore throat, No tingling (YANIRA CROWELL STUDENT) Allergies and Home Medications Allergies Coded Allergies: Levofloxacin (Unverified Allergy, Mild, 07/06/09) Metronidazole (Unverified Allergy, Mild, 07/06/09) Meperidine (Verified Allergy, Unknown, 12/13/05) ketorolac (Verified Allergy, Unknown, 12/13/05) Home Medications Hydrocodone Bit/Acetaminophen 1 Each Tablet, 1-2 EACH PO Q4HR PRN Prescribed by: JENNIFER VILLANUEVA on 01/11/11 2329 Hydroxyzine Pamoate 50 Mg Capsule, 50 MG PO Q6H PRN for ANXIETY Prescribed by: NIDHI FRANCIS on 05/09/20 0010 Hyoscyamine Sulfate 0.125 Mg Tab.subl, 0.25 MG SL Q4H Prescribed by: NIDHI FRANCIS on 12/05/19 0049 Hyoscyamine Sulfate 0.125 Mg Tab.subl, 1-2 TAB SL Q4H PRN for CRAMPS Prescribed by: NIKIA CLARK on 04/23/20 1108 Ibuprofen 200 Mg Tab, 800 MG PO TID, (Reported) Ibuprofen 800 Mg Tablet, 800 MG PO Q6H PRN for PAIN-MILD Prescribed by: NIDHI FRANCIS on 12/05/19 004 Multivitamins W-Iron 1 Tab.chew Tab.chew, 1 TAB PO DAILY, (Reported) Nitrofurantoin Monohyd/M-Cryst 100 Mg Capsule, 1 TAB PO BID Prescribed by: NIDHI FRANCIS on 12/05/1948 Nitrofurantoin Monohyd/M-Cryst 100 Mg Capsule, 1 TAB PO BID Prescribed by: NIKIA CLARK on 04/23/201107 Nystatin 15 Gm Oint...g., 15 GM TP BID Prescribed by: MARKY MALDONADO on 10/07/20 0002 Omeprazole 20 Mg Capsule.dr, 20 MG PO BID Prescribed by: NIKIA CLARK on 04/23/20 1111 Ondansetron 8 Mg Tab.rapdis, 8 MG PO Q4H PRN for NAUSEA/VOMITING Prescribed by: NIDHI FRANCIS on 12/05/1948 Ondansetron 4 Mg Tab.rapdis, 4 MG SL Q4H PRN for NAUSEA/VOMITING Prescribed by: NIKIA CLARK on 04/23/201107 Sucralfate 1 Gm Tablet, 1 GM PO QID Prescribed by: NIDHI FRANCIS on 05/09/20 001 Tramadol HCl 50 Mg Tablet, 50 MG PO Q4H Prescribed by: NIDHI FRANCIS on 05/09/20 001 Patient Home Medication List Home Medication List Reviewed: Yes (YANIRA CROWELL MED STUDENT) Review of Systems Review of Systems Constitutional: No chills, No fever EENTM: No hearing loss, No vision loss Respiratory: No cough, No short of breath Cardiovascular: No chest pain, No edema, No palpitations Gastrointestinal: abdominal pain (lower mid-abd under pannus); No constipation, No diarrhea, No nausea, No vomiting Genitourinary: No dysuria, No frequency, No hematuria Musculoskeletal: No back pain, No joint pain, No muscle pain Skin: change in color (erythema under pannus) Psychiatric/Neurological: Denies Headache, Denies Numbness, Denies Paresthesia, Denies Tingling, Denies Weakness (YANIRA CROEWLL) All Other Systems Reviewed Negative Unless Noted: Yes (YANIRA CROWELL) Past Sgcsqhd-Xwjvjr-Wxrnaw Hx Past Med/Social Hx: Reviewed Nursing Past Med/Soc Hx (YANIRA CROWELL) Patient Social History Alcohol Use: Denies Use 2nd Hand Smoke Exposure: No Recent Infectious Disease Expo: No Recent Hopitalizations: No (YANIRA CROWELL) Past Medical History Surgeries: Yes (WISDOM TEETH REMOVAL;DX LAPAROSCOPY FOR CPP;APPY;DIANELYS;T&A) Abdominal, Adenoidectomy, Appendectomy, Gallbladder, Tonsillectomy Respiratory: No Cardiac: Yes High Cholesterol Neurological: Yes Headaches /Migraines Last Menstrual Period: October 03, 2020 Reproductive Disorders: Yes (CHRONIC PELVIC PAIN; DYSMENORRHEA) Female Reproductive Disorders: Menstrual Problems, Endometriosis Genitourinary: No Gastrointestinal: Yes (H.PYLORI-TREATED X 2-DX WITH BREATH TEST;CHRONIC ABDOMINAL PAIN ) Gastroesophageal Reflux, Chronic Constipation, Chronic Diarrhea, Hiatal Hernia, Gall Bladder Disease Musculoskeletal: Yes Chronic Back Pain Endocrine: Yes (OBESITY) Diabetes, Non-Insulin dep HEENT: No Cancer: No Psychosocial: Yes Anxiety Integumentary: Yes (ABSCESSES/I&D'S, FREQUENT YEAST IN SKIN FOLDS) Blood Disorders: No (YANIRA CROWELL) Family Medical History PAST SURGICAL HISTORY: -PERIRECTAL ABSCESS I&D WITH LAP CHOLECYSTECTOMY (YANIRA CROWELL) Physical Exam Vital Signs Vital Signs - First Documented 10/06/20 23:10 Temp 36.8 Pulse 95 Resp 20 B/P (MAP) 141/93 (109) (MARKY MALDONADO) Vital Signs Capillary Refill : Less Than 3 Seconds (YANIRA CROWELL STUDENT) General Appearance: WD/WN, no apparent distress, obese HEENT: PERRL/EOMI, normal ENT inspection Neck: non-tender, full range of motion, supple, normal inspection Cardiovascular: normal peripheral pulses, regular rate, rhythm, no edema, no murmur Respiratory: chest non-tender, lungs clear, normal breath sounds, no respiratory distress, no accessory muscle use Gastrointestinal: normal bowel sounds, soft; No distended, No guarding; tenderness (inflamed area under pannus) Back: normal inspection, no CVA tenderness, no vertebral tenderness Extremities: normal range of motion, non-tender, normal inspection, no pedal edema, normal capillary refill Neurologic/Psychiatric: no motor/sensory deficits, alert, normal mood/affect, oriented x 3 Skin: warm/dry, rash (large area of erythema under pannus) Skin Problem Location: torso (under pannus) Skin Problem Character: erythema, tenderness Lymphatic: no adenopathy (YANIRA CROWELL MED STUDENT) Progress/Results/Core Measures Results/Orders Vital Signs/I&O 10/06/20 23:10 Temp 36.8 Pulse 95 Resp 20 B/P (MAP) 141/93 (109) (MARKY MALDONADO) Blood Pressure Mean: 109 Progress Progress Note : Time: 00:02 Progress Note I attest that I saw this patient alongside the medical student and agree with his documented history, physical exam and review of systems except as otherwise noted. (MARKY MALDONADO) Departure Impression Primary Impression: Candidiasis Disposition: 01 HOME, SELF-CARE Condition: Stable Departure-Patient Inst. Decision time for Depature: 00:00 (MARKY MALDONADO) Referrals: [facility] [place]) Primary Care Physician IDA WATTERS (Family) Primary Care Physician Patient Instructions: Yeast Infection (DC) Add. Discharge Instructions: Keep the skin clean, dry and aired out as much as possible. Apply a thin layer of antifungal cream of your choice such as tolnaftate, miconazole, clotrimazole etc. twice a day. Put on just enough so that when you rub it and it disappears. Return to the ER or your doctor promptly if you develop a fever or other worrisome symptoms. Expect to see results over the next 4 to 5 days. It will probably take 2 weeks for this to fully heal. If you are not seeing significant results with the hwla-mda-[id number] creams you may try the nystatin ointment. All discharge instructions reviewed with patient and/or family. Voiced understanding. Scripts Nystatin (Nystatin) 15 Gm Oint...g. 15 GM TP BID for 14 Days, #2 TUBE 0 Refills Prov: MARKY MALDONADO 10/07/20 Work/School Note: Work Release Form Date Seen in the Emergency Department: October 07, 2020 Return to Work: October 11, 2020 Restrictions: No Restrictions YANIRA CROWELL MED STUDENT October 06, 2020 23:50 MARKY MALDONADO October 07, 2020 00:02
[2020-10-07] MEDS ORDERED: NYST15OI13 TP (00:02)
[2020-10-07] MEDS: NYSTATIN CREAM (MYCOSTATIN) 30 GM TUBE TP ONE ×2 (00:09)
== END 2020-10-07 00:14 | disposition home or self-care (01) ==
LOC: EDUNIT# 22:43 → ER 22:45
DX: B37.9 Candidiasis, unspecified (principal); E11.9 Type 2 diabetes mellitus without complications; K21.9 Gastro-esophageal reflux disease without esophagitis; G89.29 Other chronic pain; M54.9 Dorsalgia, unspecified; F41.9 Anxiety disorder, unspecified; E66.9 Obesity, unspecified; Z79.891 Long term (current) use of opiate analgesic; Z79.1 Long term (current) use of non-steroidal anti-inflammatories (NSAID); Z79.899 Other long term (current) drug therapy
CPT/HCPCS: 99283

== ENCOUNTER 2021-04-27 18:21 | Emergency (ER) | payer OTHER ==
[~2021-04-27] VITALS: Ht 175 cm; Wt 148.0 kg
[~2021-04-27 18:21] MED LIST changes: +NYST15OI13 TP
[2021-04-27] MEDS ORDERED: LACTATED RINGERS 1,000 ML IV STA ×2 (18:57→19:50)
[2021-04-27] MEDS ORDERED: FAMOTIDINE 20MG/2ML IV (PEPCID) IV STA (18:57)
[2021-04-27] MEDS ORDERED: ONDANSETRON 4 MG/2 ML (SDV) Z0FRAN IVP ONE ×2 (19:00→20:00)
[2021-04-27 19:11] LABS: BASOPHILS % (AUTO) 0 % (0-10); EOSINOPHILS # (AUTO) 0.1 10^3/uL (0.0-0.3); EOSINOPHILS % (AUTO) 1 % (0-10); HEMATOCRIT 44 % (35-52); HEMOGLOBIN 13.8 g/dL (11.5-16.0); LYMPHOCYTES # (AUTO) 2.2 10^3/uL (1.0-4.0); LYMPHOCYTES % (AUTO) 23 % (12-44); MEAN CORPUSCULAR HEMOGLOBIN 27 pg (25-34); MEAN CORPUSCULAR HGB CONC 32 g/dL (32-36); MEAN CORPUSCULAR VOLUME 85 fL (80-99); MONOCYTES # (AUTO) 0.6 10^3/uL (0.0-1.0); MONOCYTES % (AUTO) 6 % (0-12); NEUTROPHILS # (AUTO) 6.7 10^3/uL (1.8-7.8); NEUTROPHILS % (AUTO) 70 % (42-75); PLATELET COUNT 366 10^3/uL (130-400); WHITE BLOOD COUNT 9.6 10^3/uL (4.3-11.0)
[2021-04-27 19:21] LABS: ALBUMIN 4.2 GM/DL (3.2-4.5); POTASSIUM 3.8 MMOL/L (3.6-5.0)
[2021-04-27 19:22] LABS: CALCIUM 9.4 MG/DL (8.5-10.1)
[2021-04-27 19:23] LABS: TOTAL PROTEIN 7.5 GM/DL (6.4-8.2)
[2021-04-27 19:25] LABS: BILIRUBIN,TOTAL 0.8 MG/DL (0.1-1.0)
[2021-04-27 19:27] LABS: CREATININE SERUM 0.83 MG/DL (0.60-1.30)
[2021-04-27 19:29] LABS: MAGNESIUM 2.1 MG/DL (1.6-2.4)
--- NOTE | 2021-04-27 19:29 | ED Abdominal Pain ---
General Chief Complaint: Abdominal/GI Problems Stated Complaint: VOMITING, STOMACH PAIN Nursing Triage Note: AMB TO ROOM WITH C/O ABD CRAMPING AND VOMITING X2 DAYS . WAS SEEN AT [facility] YESTERDAY GIVEN PO MEDS. TESTED NEG FOR COVID AND FLU. Source of Information: Patient Exam Limitations: No Limitations History of Present Illness Date Seen by Provider: Apr 27, 2021 Time Seen by Provider: 18:52 Initial Comments Here with report of epigastric abdominal pain associated with nausea, vomiting and diarrhea. Pain is reported to be cramping. Notes that her vomit is dark but not bloody. Diarrhea is brownish and nonbloody. Urine is dark and concentrated. Tested negative for Covid and flu yesterday at outside facility. She feels like she is markedly dehydrated as she has not been able to eat or drink anything. She does have a history of diabetes. Blood sugar yesterday low 100s. Timing/Duration: 2-3 Days, Constant Severity/Quality: Moderate, Cramping Location: Epigastric Radiation: No Radiation Modifying Factors: Improves With Defecating; Worsens With Eating; Improves With Vomiting Associated Symptoms: No Back Pain, No Chest Pain, No Fever/Chills; Nausea/Vomiting, Weakness Allergies and Home Medications Allergies Coded Allergies: Levofloxacin (Unverified Allergy, Mild, 07/06/09) Metronidazole (Unverified Allergy, Mild, 07/06/09) Meperidine (Verified Allergy, Unknown, 12/13/05) ketorolac (Verified Allergy, Unknown, 12/13/05) Patient Home Medication List Home Medication List Reviewed: Yes Hydrocodone Bit/Acetaminophen (Vicodin 5-500 Tablet) 1 Each Tablet, 1-2 EACH PO Q4HR PRN Prescribed by: JENNIFER VILLANUEVA on 01/11/11 2329 Hydroxyzine Pamoate (Hydroxyzine Pamoate) 50 Mg Capsule, 50 MG PO Q6H PRN for ANXIETY Prescribed by: NIDHI FRANCIS on 05/09/20 0010 Hyoscyamine Sulfate (Levsin-Sl) 0.125 Mg Tab.subl, 0.25 MG SL Q4H Prescribed by: NIDHI FRANCIS on 12/05/19 0049 Hyoscyamine Sulfate (Levsin-Sl) 0.125 Mg Tab.subl, 1-2 TAB SL Q4H PRN for CRAMPS Prescribed by: NIKIA CLARK on 04/23/201107 Ibuprofen (Motrin) 200 Mg Tab, 800 MG PO TID, (Reported) Entered as Reported by: VALE YEBOAH on 01/11/112309 Ibuprofen (Ibuprofen) 800 Mg Tablet, 800 MG PO Q6H PRN for PAIN-MILD Prescribed by: NIDHI FRANCIS on 12/05/1948 Multivitamins W-Iron (Flintstones With Iron) 1 Tab.chew Tab.chew, 1 TAB PO DAILY, (Reported) Entered as Reported by: VALE YEBOAH on 01/11/112309 Nitrofurantoin Monohyd/M-Cryst (Macrobid 100 mg Capsule) 100 Mg Capsule, 1 TAB PO BID Prescribed by: NIDHI FRANCIS on 12/05/1948 Nitrofurantoin Monohyd/M-Cryst (Macrobid 100 mg Capsule) 100 Mg Capsule, 1 TAB PO BID Prescribed by: NIKIA CLARK on 04/23/201107 Nystatin (Nystatin) 15 Gm Oint...g., 15 GM TP BID Prescribed by: MARKY MALDONADO on 10/07/20 0002 Omeprazole (Omeprazole) 20 Mg Capsule.dr, 20 MG PO BID Prescribed by: NIKIA CLARK on 04/23/20 1111 Ondansetron (Ondansetron Odt) 8 Mg Tab.rapdis, 8 MG PO Q4H PRN for NAUSEA/VOMITING Prescribed by: NIDHI FRANCIS on 12/05/1948 Ondansetron (Ondansetron Odt) 4 Mg Tab.rapdis, 4 MG SL Q4H PRN for NAUSEA/VOMITING Prescribed by: NIKIA CLARK on 04/23/201107 Sucralfate (Carafate) 1 Gm Tablet, 1 GM PO QID Prescribed by: NIDHI FRANCIS on 05/09/209 Tramadol HCl (Ultram) 50 Mg Tablet, 50 MG PO Q4H Prescribed by: NIDHI FRANCIS on 05/09/209 Review of Systems Review of Systems Constitutional: see HPI; No chills, No fever EENTM: No Nose Congestion, No Throat Pain Respiratory: Denies Cough, Denies SOA at Rest Cardiovascular: Denies Chest Pain, Denies Edema Gastrointestinal: Diarrhea, Nausea, Vomiting Genitourinary: No Symptoms Reported Musculoskeletal: no symptoms reported Skin: no symptoms reported All Other Systems Reviewed Negative Unless Noted: Yes Past Hrhugqq-Bgynqd-Xysxwu Hx Patient Social History Tobacco Use?: No Use of E-Cig and/or Vaping dev: No Substance use?: No Alcohol Use?: No Immunizations Up To Date First/Initial COVID19 Vaccinat: July COVID19 Vaccination Steven: AUGUST COVID19 Vaccine New Car Sales Manager: HEIDI Past Medical History Surgeries: Yes (WISDOM TEETH REMOVAL;DX LAPAROSCOPY FOR CPP;APPY;DIANELYS;T&A) Abdominal, Adenoidectomy, Appendectomy, Gallbladder, Tonsillectomy Respiratory: No Cardiac: Yes High Cholesterol Neurological: Yes Headaches /Migraines Reproductive Disorders: Yes (CHRONIC PELVIC PAIN; DYSMENORRHEA) Female Reproductive Disorders: Menstrual Problems, Endometriosis Genitourinary: No Gastrointestinal: Yes (H.PYLORI-TREATED X 2-DX WITH BREATH TEST;CHRONIC ABDOMINAL PAIN ) Gastroesophageal Reflux, Chronic Constipation, Chronic Diarrhea, Hiatal Hernia, Gall Bladder Disease Musculoskeletal: Yes Chronic Back Pain Endocrine: Yes (OBESITY) Diabetes, Non-Insulin dep HEENT: No Cancer: No Psychosocial: Yes Anxiety Integumentary: Yes (ABSCESSES/I&D'S, FREQUENT YEAST IN SKIN FOLDS) Blood Disorders: No Family Medical History Reviewed Nursing Family Hx PAST SURGICAL HISTORY: -PERIRECTAL ABSCESS I&D WITH LAP CHOLECYSTECTOMY Physical Exam Vital Signs Vital Signs - First Documented 04/27/21 18:27 Temp 36.2 Pulse 101 Resp 96 B/P (MAP) 138/61 (86) Pulse Ox 96 O2 Delivery Room Air Capillary Refill : Less Than 3 Seconds Height/Weight/BMI Height: '" Weight: lbs. oz. kg; 48.00 BMI Method:Stated General Appearance: WD/WN, no apparent distress, obese HEENT: PERRL/EOMI, pharynx normal Neck: full range of motion, supple Respiratory: lungs clear, normal breath sounds Cardiovascular: no murmur, tachycardia Gastrointestinal: soft; No guarding, No rebound; tenderness (Epigastric mild and along the musculature of the ribs.) Extremities: normal range of motion, non-tender Back: normal inspection, no CVA tenderness, no vertebral tenderness Neurologic/Psychiatric: alert, oriented x 3 Skin: normal color, warm/dry Progress/Results/Core Measures Results/Orders Lab Results Laboratory Tests Test 04/27/21 19:05 04/27/21 19:08 Range/Units Sodium Level 137 135-145 MMOL/L Potassium Level 3.8 3.6-5.0 MMOL/L Chloride Level 104 98-107 MMOL/L Carbon Dioxide Level 19 L 21-32 MMOL/L Anion Gap 14 5-14 MMOL/L Blood Urea Nitrogen 10 7-18 MG/DL Creatinine 0.83 0.60-1.30 MG/DL Estimat Glomerular Filtration Rate 78 BUN/Creatinine Ratio 12 Glucose Level 107 H 70-105 MG/DL Calcium Level 9.4 8.5-10.1 MG/DL Corrected Calcium 9.2 8.5-10.1 MG/DL Magnesium Level 2.1 1.6-2.4 MG/DL Total Bilirubin 0.8 0.1-1.0 MG/DL Aspartate Amino Transf (AST/SGOT) 14 5-34 U/L Alanine Aminotransferase (ALT/SGPT) 18 0-55 U/L Alkaline Phosphatase 67 40-136 U/L C-Reactive Protein High Sensitivity 1.53 H 0.00-0.50 MG/DL Total Protein 7.5 6.4-8.2 GM/DL Albumin 4.2 3.2-4.5 GM/DL White Blood Count 9.6 4.3-11.0 10^3/uL Red Blood Count 5.13 H 3.80-5.11 10^6/uL Hemoglobin 13.8 11.5-16.0 g/dL Hematocrit 44 35-52 % Mean Corpuscular Volume 85 80-99 fL Mean Corpuscular Hemoglobin 27 25-34 pg Mean Corpuscular Hemoglobin Concent 32 32-36 g/dL Red Cell Distribution Width 13.7 10.0-14.5 % Platelet Count 366 130-400 10^3/uL Mean Platelet Volume 11.0 9.0-12.2 fL Immature Granulocyte % (Auto) 0 % Neutrophils (%) (Auto) 70 42-75 % Lymphocytes (%) (Auto) 23 12-44 % Monocytes (%) (Auto) 6 0-12 % Eosinophils (%) (Auto) 1 0-10 % Basophils (%) (Auto) 0 0-10 % Neutrophils # (Auto) 6.7 1.8-7.8 10^3/uL Lymphocytes # (Auto) 2.2 1.0-4.0 10^3/uL Monocytes # (Auto) 0.6 0.0-1.0 10^3/uL Eosinophils # (Auto) 0.1 0.0-0.3 10^3/uL Basophils # (Auto) 0.0 0.0-0.1 10^3/uL Immature Granulocyte # (Auto) 0.0 0.0-0.1 10^3/uL Serum Test, Qualitative NEGATIVE NEGATIVE My Orders Orders - YAN MUNGUIA MD Cbc With Automated Diff (04/27/21 18:57) Comprehensive Metabolic Panel (04/27/21 18:57) Hs C Reactive Protein (04/27/21 18:57) Hcg,Qualitative Serum (04/27/21 18:57) Magnesium (04/27/21 18:57) Ondansetron Injection (Zofran Injectio (04/27/21 19:00) Lactated Ringers (Lr 1000 Ml Iv Solution (04/27/21 18:57) Famotidine Injection (Pepcid Injection) (04/27/21 18:57) Ed Iv/Invasive Line Start (04/27/21 18:57) Lactated Ringers (Lr 1000 Ml Iv Solution (04/27/21 19:50) Hyoscyamine Sl Tablet (Levsin Sl Tablet) (04/27/21 20:00) Ondansetron Injection (Zofran Injectio (04/27/21 20:00) Medications Given in ED Current Medications Medications Dose Ordered Sig/Alisha Route Start Time Stop Time Status Last Admin Dose Admin Hyoscyamine Sulfate 0.125 mg ONCE ONCE SL 04/27/21 20:00 04/27/21 20:01 DC 04/27/21 19:54 0.125 MG Ondansetron HCl 4 mg ONCE ONCE IVP 04/27/21 19:00 04/27/21 19:01 DC 04/27/21 19:03 4 MG Ondansetron HCl 4 mg ONCE ONCE IVP 04/27/21 20:00 04/27/21 20:01 DC 04/27/21 19:57 4 MG Vital Signs/I&O 04/27/21 18:27 Temp 36.2 Pulse 101 Resp 96 B/P (MAP) 138/61 (86) Pulse Ox 96 O2 Delivery Room Air Blood Pressure Mean: 86 Progress Progress Note : Progress Note Seen and evaluated. IV, labs, LR 1 L bolus, Zofran 4 mg IV and Pepcid 20 mg IV ordered. Monitor patient. 2118: Patient received second liter of LR as well as Levsin 0.125 mg p.o. Overall she is doing a little better. Heart rate is improved. No vomiting in the emergency department. She has ondansetron at home. She is suffering some from menstrual cramps right now. She cannot take ketorolac and states she will do ibuprofen when she gets home. I will send prescription for Levsin and I did give her discharge instructions and return precautions. Patient feels comfortable going home. Patient verbalized understanding of instructions and agreement with plan. Departure Impression Primary Impression: Nausea vomiting and diarrhea Additional Impressions: Epigastric abdominal pain Menstrual cramps Disposition: HOME, SELF-CARE Condition: Stable Departure-Patient Inst. Decision time for Depature: 21:20 Referrals: [facility] [place] (PCP) Primary Care Physician IDA WATTERS (Family) Primary Care Physician Patient Instructions: Nausea and Vomiting, Adult ED, Diarrhea in Adolescents and Adults, Dehydration, Adult (DC), Severe Abdominal Pain, Adult (DC) Add. Discharge Instructions: All discharge instructions reviewed with patient and/or family. Voiced understanding. Take medications as directed. Follow-up with your doctor in a few days for recheck. Clear liquid diet for the next 12 to 24 hours and then advance as tolerated to light. You may advance to normal as tolerated after that. Return for worse pain, fever, vomiting that is persisting, weakness, breathing problems, decreased urination or other concerns as needed. Scripts Hyoscyamine Sulfate (Ed-Spaz) 0.125 Mg Tab.rapdis 0.125 MG PO Q6H PRN for NAUSEA/VOMITING, #12 TAB Prov: YAN MUNGUIA MD 04/27/21 YAN MUNGUIA MD Apr 27, 2021 19:29
[2021-04-27] MEDS ORDERED: HYOSCYAMINE 0.125 MG (LEVSIN) TAB SL ONE (20:00)
[2021-04-27] MEDS ORDERED: [UNRECOGNIZED DRUG - CODE] PO (21:22)
[2021-04-27 21:25] VITALS: BP 133/84
== END 2021-04-27 21:29 | disposition home or self-care (01) ==
LOC: EDUNIT# 18:21 → ER 18:23
DX: R11.2 Nausea with vomiting, unspecified (principal); R19.7 Diarrhea, unspecified; R10.13 Epigastric pain; N94.6 Dysmenorrhea, unspecified; E66.9 Obesity, unspecified; R00.0 Tachycardia, unspecified; K21.9 Gastro-esophageal reflux disease without esophagitis; E11.9 Type 2 diabetes mellitus without complications; F41.9 Anxiety disorder, unspecified; G89.29 Other chronic pain; M54.9 Dorsalgia, unspecified; Z68.42 Body mass index [BMI] 45.0-49.9, adult; Z79.899 Other long term (current) drug therapy; Z79.891 Long term (current) use of opiate analgesic
CPT/HCPCS: 36415; 80053; 83735; 84703; 85025; 86141

== ENCOUNTER 2021-04-29 07:40 | Emergency (ER) | payer OTHER ==
[~2021-04-29] VITALS: Ht 175 cm; Wt 148.0 kg
[~2021-04-29 07:40] MED LIST changes: +[UNRECOGNIZED DRUG - CODE] PO
--- NOTE | 2021-04-29 08:13 | ED GI ---
General Chief Complaint: Abdominal/GI Problems Stated Complaint: ABD PAIN Nursing Triage Note: ARRIVED VIA AMB WITH COMPLAINTS OF ABD PAIN X1 WEEK WAS SEEN HERE X2 DAYS AGO. STATES SHE IS NOW HAVING DIARRHEA. Source of Information: Patient Exam Limitations: No Limitations (SELVIN MELARA MED STUDENT) History of Present Illness Date Seen by Provider: Apr 29, 2021 Time Seen by Provider: 08:10 Initial Comments This is a 36 YO female with DM who presents to the ED with sharp lower abdominal pain and diarrhea. Pt has had the abdominal pain since Sunday and was seen in the ED 2 days ago for the pain as well as nausea and vomiting. Labs at that time were unremarkable and after improvement in the ED, she was discharged home with Levsin Rx. She states that since then, she has not had any vomiting and has been able to hold down some water, gatorade, and vegetable soup. However, the nausea has persisted and has been taking Zofran at home. Has not taken her morning medications today due to the nausea. Abdominal pain is also worse and has been taking Ibuprofen 800 mg every 4-6 hours without improvement. She also states she has been having 8-9 episodes of green, liquidy diarrhea for the past 2 days. Denies recent travel or food exposures. Notes that she is currently menstruating and having cramps. Denies burning with urination, but notes that her pain is worse with urination. Also notes some right-sided lower back/flank pain. Has had similar episodes of abdominal pain the past, but states this is worse than usual. Has been worked up for her GI complaints and had GERD and H. pylori. States one doctor mentioned IBD as a possible cause of her symptoms, but has not been formally diagnosed. Associated Symptoms: No Fever/Chills, No Nausea/Vomiting (SELVIN MELARA MED STUDENT) Allergies and Home Medications Allergies Coded Allergies: Levofloxacin (Unverified Allergy, Mild, 07/06/09) Metronidazole (Unverified Allergy, Mild, 07/06/09) Meperidine (Verified Allergy, Unknown, 12/13/05) ketorolac (Verified Allergy, Unknown, 12/13/05) Patient Home Medication List Home Medication List Reviewed: Yes (RAFAEL COLIN MD) Dicyclomine HCl (Dicyclomine HCl) 20 Mg Tablet, 20 MG PO Q6H PRN for abdominal cramping Prescribed by: RAFAEL COLIN on 04/29/21 1153 Hydrocodone Bit/Acetaminophen (Vicodin 5-500 Tablet) 1 Each Tablet, 1-2 EACH PO Q4HR PRN Prescribed by: JENNIFER VILLANUEVA on 01/11/11 2329 Hydroxyzine Pamoate (Hydroxyzine Pamoate) 50 Mg Capsule, 50 MG PO Q6H PRN for ANXIETY Prescribed by: NIDHI FRANCIS on 05/09/20 0010 Hyoscyamine Sulfate (Levsin-Sl) 0.125 Mg Tab.subl, 0.25 MG SL Q4H Prescribed by: NIDHI FRANCIS on 12/05/19 004 Hyoscyamine Sulfate (Levsin-Sl) 0.125 Mg Tab.subl, 1-2 TAB SL Q4H PRN for CRAMPS Prescribed by: NIKIA CLARK on 04/23/20 110 Hyoscyamine Sulfate (Ed-Spaz) 0.125 Mg Tab.rapdis, 0.125 MG PO Q6H PRN for NAUSEA/VOMITING Prescribed by: YAN MUNGUIA on 04/27/212121 Ibuprofen (Motrin) 200 Mg Tab, 800 MG PO TID, (Reported) Entered as Reported by: VALE YEBOAH on 01/11/11 231 Ibuprofen (Ibuprofen) 800 Mg Tablet, 800 MG PO Q6H PRN for PAIN-MILD Prescribed by: NIDHI FRANCIS on 12/05/1948 Multivitamins W-Iron (Flintstones With Iron) 1 Tab.chew Tab.chew, 1 TAB PO DAILY, (Reported) Entered as Reported by: VALE YEBOAH on 01/11/11 231 Nitrofurantoin Monohyd/M-Cryst (Macrobid 100 mg Capsule) 100 Mg Capsule, 1 TAB PO BID Prescribed by: NIDHI FRANCIS on 12/05/1948 Nitrofurantoin Monohyd/M-Cryst (Macrobid 100 mg Capsule) 100 Mg Capsule, 1 TAB PO BID Prescribed by: NIKIA CLARK on 04/23/20 110 Nystatin (Nystatin) 15 Gm Oint...g., 15 GM TP BID Prescribed by: MARKY MALDONADO on 10/07/20 0002 Omeprazole (Omeprazole) 20 Mg Capsule.dr, 20 MG PO BID Prescribed by: NIKIA CLARK on 04/23/20 1111 Ondansetron (Ondansetron Odt) 8 Mg Tab.rapdis, 8 MG PO Q4H PRN for NAUSEA/VOMITING Prescribed by: NIDHI FRANCIS on 12/05/19 0049 Ondansetron (Ondansetron Odt) 4 Mg Tab.rapdis, 4 MG SL Q4H PRN for NAUSEA/VOMITING Prescribed by: NIKIA CLARK on 04/23/20 1108 Promethazine HCl (Promethazine Tablet) 25 Mg Tablet, 25 MG PO Q6H PRN for NAUSEA/VOMITING Prescribed by: RAFAEL COLIN on 04/29/21 1153 Sucralfate (Carafate) 1 Gm Tablet, 1 GM PO QID Prescribed by: NIDHI FRANCIS on 05/09/20 0010 Tramadol HCl (Ultram) 50 Mg Tablet, 50 MG PO Q4H Prescribed by: NIDHI FRANCIS on 05/09/20 0010 Review of Systems Review of Systems Constitutional: No chills, No fever EENTM: No Symptoms Reported Respiratory: Denies Cough, Denies Shortness of Air Cardiovascular: Denies Chest Pain, Denies Syncope Gastrointestinal: See HPI Genitourinary: Denies Incontinence, Denies Urgency Musculoskeletal: back pain, muscle cramps Skin: no symptoms reported Psychiatric/Neurological: No Symptoms Reported Endocrine: Denies Increased Hunger, Denies Increased Thrist Hematologic/Lymphatic: No Symptoms Reported (SELVIN MELARA MED STUDENT) Past Oyikpun-Umyjlm-Djvtho Hx Patient Social History Tobacco Use?: No Substance use?: No Alcohol Use?: No (SELVIN MELARA MED STUDENT) Immunizations Up To Date First/Initial COVID19 Vaccinat: July COVID19 Vaccination Steven: 08/08 COVID19 Vaccine Wax Pourer: DIANA (SELVIN MELARA MED STUDENT) Past Medical History Surgeries: Yes (WISDOM TEETH REMOVAL;DX LAPAROSCOPY FOR CPP;APPY;DIANELYS;T&A) Abdominal, Adenoidectomy, Appendectomy, Gallbladder, Tonsillectomy Respiratory: No Cardiac: Yes High Cholesterol Neurological: Yes Headaches /Migraines Reproductive Disorders: Yes (CHRONIC PELVIC PAIN; DYSMENORRHEA) Female Reproductive Disorders: Menstrual Problems, Endometriosis Genitourinary: No Gastrointestinal: Yes (H.PYLORI-TREATED X 2-DX WITH BREATH TEST;CHRONIC ABDOMIN AL PAIN ) Gastroesophageal Reflux, Chronic Constipation, Chronic Diarrhea, Hiatal Hernia, Gall Bladder Disease Musculoskeletal: Yes Chronic Back Pain Endocrine: Yes (OBESITY) Diabetes, Non-Insulin dep HEENT: No Cancer: No Psychosocial: Yes Anxiety Integumentary: Yes (ABSCESSES/I&D'S, FREQUENT YEAST IN SKIN FOLDS) Blood Disorders: No (SELVIN MELARA MED STUDENT) Family Medical History PAST SURGICAL HISTORY: -PERIRECTAL ABSCESS I&D WITH LAP CHOLECYSTECTOMY (SELVIN MELARA MED STUDENT) Physical Exam Vital Signs Vital Signs - First Documented 04/29/21 07:51 Temp 36.1 Pulse 87 Resp 16 B/P (MAP) 141/105 (117) Pulse Ox 98 O2 Delivery Room Air (RAFAEL COLIN MD) Vital Signs Capillary Refill : Less Than 3 Seconds (SELVIN MELARA STUDENT) Height/Weight/BMI Height: '" Weight: lbs. oz. kg; 48.00 BMI Method:Stated General Appearance: WD/WN, mild distress HEENT: PERRL/EOMI, normal ENT inspection; No scleral icterus (R), No scleral icterus (L) Neck: supple, normal inspection Respiratory: lungs clear, normal breath sounds, no respiratory distress, no accessory muscle use Cardiovascular: no edema, no murmur, other (borderline tachycardia) Gastrointestinal: soft; No guarding, No rebound; other (morbidly obese; right lower back/flank tenderness; diffuse abdominal tenderness, increase in right lower and mid lower abdomen) Extremities: no pedal edema, no calf tenderness Neurologic/Psychiatric: alert, oriented x 3, other (tearful, appears uncomfortable) Skin: normal color, warm/dry (SELVIN MELARA MED STUDENT) Progress/Results/Core Measures Results/Orders Lab Results Laboratory Tests Test 04/29/21 08:28 04/29/21 08:46 Range/Units Urine Color YELLOW Urine Clarity CLOUDY Urine pH 5.5 5-9 Urine Specific [place] 1.025 H 1.016-1.022 Urine Protein TRACE H NEGATIVE Urine Glucose (UA) 2+ H NEGATIVE Urine Ketones 2+ H NEGATIVE Urine Nitrite NEGATIVE NEGATIVE Urine Bilirubin 1+ H NEGATIVE Urine Urobilinogen 0.2 < = 1.0 MG/DL Urine Leukocyte Esterase NEGATIVE NEGATIVE Urine RBC (Auto) 3+ H NEGATIVE Urine RBC >100 H /HPF Urine WBC NONE /HPF Urine Squamous Epithelial Cells RARE /HPF Urine Crystals NONE /LPF Urine Bacteria NEGATIVE /HPF Urine Casts NONE /LPF Urine Mucus NEGATIVE /LPF Urine Culture Indicated NO White Blood Count 7.8 4.3-11.0 10^3/uL Red Blood Count 4.81 3.80-5.11 10^6/uL Hemoglobin 13.0 11.5-16.0 g/dL Hematocrit 41 35-52 % Mean Corpuscular Volume 84 80-99 fL Mean Corpuscular Hemoglobin 27 25-34 pg Mean Corpuscular Hemoglobin Concent 32 32-36 g/dL Red Cell Distribution Width 13.7 10.0-14.5 % Platelet Count 324 130-400 10^3/uL Mean Platelet Volume 10.8 9.0-12.2 fL Immature Granulocyte % (Auto) 0 % Neutrophils (%) (Auto) 70 42-75 % Lymphocytes (%) (Auto) 22 12-44 % Monocytes (%) (Auto) 7 0-12 % Eosinophils (%) (Auto) 1 0-10 % Basophils (%) (Auto) 0 0-10 % Neutrophils # (Auto) 5.4 1.8-7.8 10^3/uL Lymphocytes # (Auto) 1.7 1.0-4.0 10^3/uL Monocytes # (Auto) 0.5 0.0-1.0 10^3/uL Eosinophils # (Auto) 0.1 0.0-0.3 10^3/uL Basophils # (Auto) 0.0 0.0-0.1 10^3/uL Immature Granulocyte # (Auto) 0.0 0.0-0.1 10^3/uL Sodium Level 138 135-145 MMOL/L Potassium Level 3.7 3.6-5.0 MMOL/L Chloride Level 106 98-107 MMOL/L Carbon Dioxide Level 19 L 21-32 MMOL/L Anion Gap 13 5-14 MMOL/L Blood Urea Nitrogen 7 7-18 MG/DL Creatinine 0.83 0.60-1.30 MG/DL Estimat Glomerular Filtration Rate 78 BUN/Creatinine Ratio 8 Glucose Level 110 H 70-105 MG/DL Calcium Level 9.1 8.5-10.1 MG/DL Corrected Calcium 9.1 8.5-10.1 MG/DL Total Bilirubin 0.5 0.1-1.0 MG/DL Aspartate Amino Transf (AST/SGOT) 14 5-34 U/L Alanine Aminotransferase (ALT/SGPT) 15 0-55 U/L Alkaline Phosphatase 61 40-136 U/L Total Protein 7.2 6.4-8.2 GM/DL Albumin 4.0 3.2-4.5 GM/DL Lipase 31 8-78 U/L Serum Test, Qualitative NEGATIVE NEGATIVE (RAFAEL COLIN MD) My Orders Orders - RAFAEL COLIN MD Cbc With Automated Diff (04/29/21 08:18) Comprehensive Metabolic Panel (04/29/21 08:18) Lipase (04/29/21 08:18) Hcg,Qualitative Serum (04/29/21 08:18) Ua Culture If Indicated (04/29/21 08:18) Famotidine Injection (Pepcid Injection) (04/29/21 08:18) Ondansetron Injection (Zofran Injectio (04/29/21 08:30) Ns Iv 1000 Ml (Sodium Chloride 0.9%) (04/29/21 08:30) Ns Iv 1000 Ml (Sodium Chloride 0.9%) (04/29/21 10:15) Metoclopramide Injection (Reglan Injecti (04/29/21 11:30) Diphenhydramine Injection (Benadryl Inje (04/29/21 11:30) (RAFAEL COLIN MD) Medications Given in ED (RAFAEL COLIN MD) Vital Signs/I&O 04/29/21 04/29/21 07:51 12:02 Temp 36.1 Pulse 87 77 Resp 16 16 B/P (MAP) 141/105 (117) 126/78 Pulse Ox 98 96 O2 Delivery Room Air Room Air (RAFAEL COLIN MD) Blood Pressure Mean: 117 Progress Progress Note #1: Time: 10:11 Progress Note Reevaluated patient after labs and fluids. She states that she is feeling somewhat better. She was able to tolerate a little bit of ice chips. Her abdominal exam remains nonsurgical, no distention, normoactive bowel sounds, no rebound or involuntary guarding. I suspect she has a GI bug and would benefit from bowel rest, clear liquids, nausea meds and continue Levsin. She does not have an elevated white count, abnormal electrolytes or unstable vital signs. Will go ahead and give her another liter of fluids to get her good and well- hydrated. She is comfortable with this plan of care. Progress Note #2: Time: 11:51 Progress Note Patient completed a second liter of IV fluids. She continues to feel little bit better. We will send her home with some Phenergan and some Bentyl. Labs have been reviewed and are within normal limits. Again abdominal exam is nonsurgical. Encouraged patient to drink plenty of clear liquids to stay well- hydrated. All questions are sought and answered. (RAFAEL COLIN MD) Departure Impression Primary Impression: Gastroenteritis Additional Impression: Abdominal pain Qualified Codes: R10.30 - Lower abdominal pain, unspecified Disposition: 01 HOME, SELF-CARE Condition: Improved Departure-Patient Inst. Decision time for Depature: 11:52 (RAFAEL COLIN MD) Referrals: [facility] [place] Primary Care Physician IDA WATTERS (Family) Primary Care Physician Patient Instructions: Viral Gastroenteritis Add. Discharge Instructions: Drink plenty of fluids to stay well-hydrated. I have sent prescriptions for dicyclomine/Bentyl to your [facility] pharmacy. Y ou can take 1 every 6 hours as needed for cramping. Do not take the Levsin while you are taking Bentyl. I have also sent a new prescription for nausea medications, Phenergan, you can take 1 every 6 hours as needed for nausea. This may make you sleepy. Do not drive and take this medication. If you have fever, worsening abdominal pain please come back to the emergency room for reevaluation. Please call and follow-up with your primary care physician next week. Scripts Dicyclomine HCl (Dicyclomine HCl) 20 Mg Tablet 20 MG PO Q6H PRN for abdominal cramping, #30 TAB Prov: RAFAEL COLIN MD 04/29/21 Promethazine HCl (Promethazine Tablet) 25 Mg Tablet 25 MG PO Q6H PRN for NAUSEA/VOMITING, #15 TAB Prov: RAFAEL COLIN MD 04/29/21 Verification and Attestation of Medical Student E/M Service A medical student performed and documented this service in my presence. I reviewed and verified all information documented by the medical student and made modifications to such information, when appropriate. I personally performed the physical exam and medical decision making. Rafael Colin, Apr 30, 2021,06:07 (RAFAEL COLIN MD) SELVIN MELARA STUDENT Apr 29, 2021 08:13 RAFAEL COLIN MD Apr 29, 2021 10:12
[2021-04-29] MEDS ORDERED: FAMOTIDINE 20MG/2ML IV (PEPCID) IVP STA (08:18)
[2021-04-29] MEDS ORDERED: ONDANSETRON 4 MG/2 ML (SDV) Z0FRAN IVP ONE (08:30)
[2021-04-29] MEDS ORDERED: NS IV 1000 ML 1,000 ML IV SCH ×2 (08:30→10:15)
[2021-04-29 08:38] LABS: CLARITY,URINE CLOUDY; COLOR,URINE YELLOW; GLUCOSE, URINE (UA) 2+ (NEGATIVE); KETONES,URINE 2+ (NEGATIVE); LEUKOCYTE ESTERASE ,URINE NEGATIVE (NEGATIVE); NITRITE,URINE NEGATIVE (NEGATIVE); PH,URINE 5.5 (5-9); PROTEIN,URINE TRACE (NEGATIVE)
[2021-04-29 08:54] LABS: BASOPHILS % (AUTO) 0 % (0-10); EOSINOPHILS # (AUTO) 0.1 10^3/uL (0.0-0.3); EOSINOPHILS % (AUTO) 1 % (0-10); HEMATOCRIT 41 % (35-52); LYMPHOCYTES # (AUTO) 1.7 10^3/uL (1.0-4.0); LYMPHOCYTES % (AUTO) 22 % (12-44); MEAN CORPUSCULAR HEMOGLOBIN 27 pg (25-34); MEAN CORPUSCULAR HGB CONC 32 g/dL (32-36); MEAN CORPUSCULAR VOLUME 84 fL (80-99); MEAN PLATELET VOLUME 10.8 fL (9.0-12.2); MONOCYTES # (AUTO) 0.5 10^3/uL (0.0-1.0); MONOCYTES % (AUTO) 7 % (0-12); NEUTROPHILS # (AUTO) 5.4 10^3/uL (1.8-7.8); NEUTROPHILS % (AUTO) 70 % (42-75); PLATELET COUNT 324 10^3/uL (130-400); WHITE BLOOD COUNT 7.8 10^3/uL (4.3-11.0)
[2021-04-29 08:54] LABS: BACTERIA,URINE NEGATIVE /HPF; BILIRUBIN,URINE 1+ (NEGATIVE); RBC,URINE >100 /HPF; SQUAMOUS EPITHELIAL CELL,UR RARE /HPF
[2021-04-29 09:07] LABS: POTASSIUM 3.7 MMOL/L (3.6-5.0)
[2021-04-29 09:08] LABS: CALCIUM 9.1 MG/DL (8.5-10.1)
[2021-04-29 09:09] LABS: TOTAL PROTEIN 7.2 GM/DL (6.4-8.2)
[2021-04-29 09:11] LABS: BILIRUBIN,TOTAL 0.5 MG/DL (0.1-1.0)
[2021-04-29 09:13] LABS: CREATININE SERUM 0.83 MG/DL (0.60-1.30)
[2021-04-29] MEDS ORDERED: METOCLOPRAMIDE INJ 10 MG/2 ML (REGLAN) IVP ONE (11:30)
[2021-04-29] MEDS ORDERED: diphenhydrAMINE 50 MG/ML INJ (BENADRYL) IV ONE (11:30)
[2021-04-29] MEDS ORDERED: PROM25TA14 PO (11:53)
[2021-04-29] MEDS ORDERED: DICY20TA PO (11:53)
[2021-04-29 12:02] VITALS: BP 126/78
== END 2021-04-29 12:02 | disposition home or self-care (01) ==
LOC: EDUNIT# 07:40 → ER 07:41
DX: K52.9 Noninfective gastroenteritis and colitis, unspecified (principal); K21.9 Gastro-esophageal reflux disease without esophagitis; F41.9 Anxiety disorder, unspecified; G89.29 Other chronic pain; M54.9 Dorsalgia, unspecified; E11.9 Type 2 diabetes mellitus without complications; E66.01 Morbid (severe) obesity due to excess calories; Z68.42 Body mass index [BMI] 45.0-49.9, adult; Z79.891 Long term (current) use of opiate analgesic; Z79.899 Other long term (current) drug therapy
CPT/HCPCS: 36415; 80053; 81000; 83690; 84703; 85025

== ENCOUNTER 2021-05-09 07:29 | Emergency (ER) | payer OTHER ==
[~2021-05-09] VITALS: Ht 175 cm; Wt 147.4 kg
[~2021-05-09 07:29] MED LIST changes: +DICY20TA PO; +PROM25TA14 PO
[2021-05-09] MEDS ORDERED: LACTATED RINGERS 1,000 ML IV ONE (08:00)
[2021-05-09 08:02] LABS: BASOPHILS % (AUTO) 0 % (0-10); EOSINOPHILS # (AUTO) 0.1 10^3/uL (0.0-0.3); EOSINOPHILS % (AUTO) 2 % (0-10); HEMATOCRIT 42 % (35-52); LYMPHOCYTES # (AUTO) 1.6 10^3/uL (1.0-4.0); LYMPHOCYTES % (AUTO) 23 % (12-44); MEAN CORPUSCULAR HEMOGLOBIN 26 pg (25-34); MEAN CORPUSCULAR HGB CONC 31 g/dL (32-36); MEAN CORPUSCULAR VOLUME 85 fL (80-99); MEAN PLATELET VOLUME 10.9 fL (9.0-12.2); MONOCYTES # (AUTO) 0.4 10^3/uL (0.0-1.0); MONOCYTES % (AUTO) 6 % (0-12); NEUTROPHILS # (AUTO) 4.8 10^3/uL (1.8-7.8); NEUTROPHILS % (AUTO) 68 % (42-75); PLATELET COUNT 361 10^3/uL (130-400)
[2021-05-09 08:15] LABS: POTASSIUM 4.1 MMOL/L (3.6-5.0)
[2021-05-09 08:17] LABS: CALCIUM 9.1 MG/DL (8.5-10.1)
[2021-05-09 08:18] LABS: TOTAL PROTEIN 7.3 GM/DL (6.4-8.2)
[2021-05-09 08:19] LABS: BILIRUBIN,TOTAL 0.4 MG/DL (0.1-1.0)
[2021-05-09 08:22] LABS: CREATININE SERUM 0.77 MG/DL (0.60-1.30)
[2021-05-09 08:24] LABS: MAGNESIUM 2.1 MG/DL (1.6-2.4)
[2021-05-09 08:30] LABS: BILIRUBIN,URINE NEGATIVE (NEGATIVE); CLARITY,URINE SL CLOUDY; COLOR,URINE YELLOW; GLUCOSE, URINE (UA) 3+ (NEGATIVE); KETONES,URINE NEGATIVE (NEGATIVE); LEUKOCYTE ESTERASE ,URINE NEGATIVE (NEGATIVE); NITRITE,URINE NEGATIVE (NEGATIVE); PH,URINE 5.5 (5-9); PROTEIN,URINE NEGATIVE (NEGATIVE)
[2021-05-09] MEDS ORDERED: ONDANSETRON 4 MG/2 ML (SDV) Z0FRAN IVP ONE (08:30)
[2021-05-09 08:40] LABS: BACTERIA,URINE TRACE /HPF; WBC,URINE 0-2 /HPF
--- NOTE | 2021-05-09 09:08 | Diagnostic Imaging Report ---
INDICATION: Right flank pain. TIME OF EXAM: 9:07 AM. FINDINGS: No free air is identified. The bowel gas pattern is nonobstructed. There is moderate stool in the right colon. There are surgical clips in the gallbladder fossa. No pathologic calcifications are seen. IMPRESSION: No acute abnormality is detected. Dictated by: Dictated on workstation # [id number]
--- NOTE | 2021-05-09 09:14 | ED Abdominal Pain ---
General Chief Complaint: Abdominal/GI Problems Stated Complaint: CONSTIPATION, RLQ PAIN Nursing Triage Note: PT PRESENTS TO ED VIA POV FROM HOME WITH COMPLAINTS OF R SIDED ABDOMINAL PAIN X2 DAYS. PT STATES SHE HAS NOT HAD A BM FOR 3 DAYS. PT STATES SHE FEELS PRESSURE NEAR HER RECTUM BUT IS UNABLE TO HAVE A BM. PT WAS SEEN IN ED ON THE FOR N/V/D. Source of Information: Patient, Old Records Exam Limitations: No Limitations History of Present Illness Date Seen by Provider: May 09, 2021 Time Seen by Provider: 08:05 Initial Comments This 36-year-old woman presents to the emergency room with complaints of right lower quadrant pain for more than 10 days. She was seen in the ER on April 27 and . She states she was up all night because the pain cannot be controlled. She worries about constipation because she has not had a bowel movement in 2 days. She is also nauseated. She had diarrhea prior to the last 48 hours. She has also had visits to the walk-in clinic. She has taken MiraLAX and docusate without resolution of her pain. She presently has nausea without vomiting. She reports her daughter was recently diagnosed with influenza A but she is already been screened for Covid and influenza in prior encounters. She has had chills last night but no fevers. She denies urinary changes. LMP was around the be ginning of April. She has had multiple abdominal surgeries including appendectomy, cholecystectomy, and endoscopy. Ida Alexandra is her primary care provider at [facility] Allergies and Home Medications Allergies Coded Allergies: levofloxacin (Unverified Allergy, Mild, 07/06/09) metronidazole (Unverified Allergy, Mild, 07/06/09) ketorolac (Verified Allergy, Unknown, 12/13/05) meperidine (Verified Allergy, Unknown, 12/13/05) Patient Home Medication List Home Medication List Reviewed: Yes Dicyclomine HCl (Dicyclomine HCl) 20 Mg Tablet, 20 MG PO Q6H PRN for abdominal cramping Prescribed by: RAFAEL COLIN on 04/29/21 1153 Hydrocodone Bit/Acetaminophen (Vicodin 5-500 Tablet) 1 Each Tablet, 1-2 EACH PO Q4HR PRN Prescribed by: JENNIFER VILLANUEVA on 01/11/11 1094 Hydroxyzine Pamoate (Hydroxyzine Pamoate) 50 Mg Capsule, 50 MG PO Q6H PRN for ANXIETY Prescribed by: NIDHI FRANCIS on 05/09/20 0010 Hyoscyamine Sulfate (Levsin-Sl) 0.125 Mg Tab.subl, 0.25 MG SL Q4H Prescribed by: NIDHI FRANCIS on 12/05/1948 Hyoscyamine Sulfate (Levsin-Sl) 0.125 Mg Tab.subl, 1-2 TAB SL Q4H PRN for CRAMPS Prescribed by: NIKIA CLARK on 04/23/201107 Hyoscyamine Sulfate (Ed-Spaz) 0.125 Mg Tab.rapdis, 0.125 MG PO Q6H PRN for NAUSEA/VOMITING Prescribed by: YAN MUNGUIA on 04/27/212121 Ibuprofen (Motrin) 200 Mg Tab, 800 MG PO TID, (Reported) Entered as Reported by: VALE YEBOAH on 01/11/112309 Ibuprofen (Ibuprofen) 800 Mg Tablet, 800 MG PO Q6H PRN for PAIN-MILD Prescribed by: NIDHI FRANCIS on 12/05/1948 Multivitamins W-Iron (Flintstones With Iron) 1 Tab.chew Tab.chew, 1 TAB PO DAILY, (Reported) Entered as Reported by: VALE YEBOAH on 01/11/112309 Nitrofurantoin Monohyd/M-Cryst (Macrobid 100 mg Capsule) 100 Mg Capsule, 1 TAB PO BID Prescribed by: NIDHI FRANCIS on 12/05/1948 Nitrofurantoin Monohyd/M-Cryst (Macrobid 100 mg Capsule) 100 Mg Capsule, 1 TAB PO BID Prescribed by: NIKIA CLARK on 04/23/201107 Nystatin (Nystatin) 15 Gm Oint...g., 15 GM TP BID Prescribed by: MARKY MALDONADO on 10/07/20 0002 Omeprazole (Omeprazole) 20 Mg Capsule.dr, 20 MG PO BID Prescribed by: NIKIA CLARK on 04/23/20 1111 Ondansetron (Ondansetron Odt) 8 Mg Tab.rapdis, 8 MG PO Q4H PRN for NAUSEA/VOMITING Prescribed by: NIDHI FRANCIS on 12/05/1948 Ondansetron (Ondansetron Odt) 4 Mg Tab.rapdis, 4 MG SL Q4H PRN for NAUSEA/VOMITING Prescribed by: NIKIA CLARK on 04/23/20 1108 Promethazine HCl (Promethazine Tablet) 25 Mg Tablet, 25 MG PO Q6H PRN for NAUSEA/VOMITING Prescribed by: RAFAEL COLIN on 04/29/21 1153 Sucralfate (Carafate) 1 Gm Tablet, 1 GM PO QID Prescribed by: NIDHI FRANCIS on 05/09/20 0010 Tramadol HCl (Ultram) 50 Mg Tablet, 50 MG PO Q4H Prescribed by: NIDHI FRANCIS on 05/09/20 001 Review of Systems Review of Systems Constitutional: see HPI EENTM: No Symptoms Reported Respiratory: No Symptoms Reported Cardiovascular: No Symptoms Reported Gastrointestinal: See HPI Genitourinary: No Symptoms Reported Musculoskeletal: no symptoms reported Skin: no symptoms reported Psychiatric/Neurological: Other (Anxious and tearful) Endocrine: No Symptoms Reported Hematologic/Lymphatic: No Symptoms Reported Past Ykphxou-Itpcab-Cukhwy Hx Patient Social History Tobacco Use?: No Substance use?: No Alcohol Use?: No Pt feels they are or have been: No Immunizations Up To Date First/Initial COVID19 Vaccinat: 08/08 Second COVID19 Vaccination Steven: 08/08 Third COVID19 Vaccination Date: 08/08 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 Past Medical History Surgery/Hospitalization HX: SX" APPY, GALLBLADDER, T/A PMH: DM2 Surgeries: Yes (WISDOM TEETH REMOVAL;DX LAPAROSCOPY FOR CPP;APPY;DIANELYS;T&A; a bscesses) Abdominal (Upper endoscopy), Adenoidectomy, Appendectomy, Gallbladder, Tonsillectomy Respiratory: No Cardiac: Yes High Cholesterol Neurological: Yes Headaches /Migraines Reproductive Disorders: Yes (CHRONIC PELVIC PAIN; DYSMENORRHEA) Female Reproductive Disorders: Menstrual Problems, Endometriosis Genitourinary: No Gastrointestinal: Yes (H.PYLORI-TREATED X 2-DX WITH BREATH TEST;CHRONIC ABDOMINAL PAIN ) Gastroesophageal Reflux, Chronic Constipation, Chronic Diarrhea, Hiatal Hernia, Gall Bladder Disease Musculoskeletal: Yes Chronic Back Pain Endocrine: Yes (OBESITY, vitamin D deficiency) Diabetes, Non-Insulin dep HEENT: No Cancer: No Psychosocial: Yes Anxiety Integumentary: Yes (ABSCESSES/I&D'S, FREQUENT YEAST IN SKIN FOLDS) Blood Disorders: No Family Medical History PAST SURGICAL HISTORY: -PERIRECTAL ABSCESS I&D WITH LAP CHOLECYSTECTOMY Physical Exam Vital Signs Vital Signs - First Documented 05/09/21 07:43 Temp 35.8 Pulse 79 Resp 18 B/P (MAP) 110/49 (69) Pulse Ox 98 Capillary Refill : Less Than 3 Seconds Height/Weight/BMI Height: '" Weight: lbs. oz. 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, no motor/sensory deficits, alert, normal mood/affect, oriented x 3 Skin: normal color, warm/dry Progress/Results/Core Measures Results/Orders Lab Results Laboratory Tests Test 05/09/21 07:57 05/09/21 08:00 Range/Units White Blood Count 7.0 4.3-11.0 10^3/uL Red Blood Count 4.95 3.80-5.11 10^6/uL Hemoglobin 13.0 11.5-16.0 g/dL Hematocrit 42 35-52 % Mean Corpuscular Volume 85 80-99 fL Mean Corpuscular Hemoglobin 26 25-34 pg Mean Corpuscular Hemoglobin Concent 31 L 32-36 g/dL Red Cell Distribution Width 14.0 10.0-14.5 % Platelet Count 361 130-400 10^3/uL Mean Platelet Volume 10.9 9.0-12.2 fL Immature Granulocyte % (Auto) 0 % Neutrophils (%) (Auto) 68 42-75 % Lymphocytes (%) (Auto) 23 12-44 % Monocytes (%) (Auto) 6 0-12 % Eosinophils (%) (Auto) 2 0-10 % Basophils (%) (Auto) 0 0-10 % Neutrophils # (Auto) 4.8 1.8-7.8 10^3/uL Lymphocytes # (Auto) 1.6 1.0-4.0 10^3/uL Monocytes # (Auto) 0.4 0.0-1.0 10^3/uL Eosinophils # (Auto) 0.1 0.0-0.3 10^3/uL Basophils # (Auto) 0.0 0.0-0.1 10^3/uL Immature Granulocyte # (Auto) 0.0 0.0-0.1 10^3/uL Sodium Level 138 135-145 MMOL/L Potassium Level 4.1 3.6-5.0 MMOL/L Chloride Level 106 98-107 MMOL/L Carbon Dioxide Level 23 21-32 MMOL/L Anion Gap 9 5-14 MMOL/L Blood Urea Nitrogen 7 7-18 MG/DL Creatinine 0.77 0.60-1.30 MG/DL Estimat Glomerular Filtration Rate 85 BUN/Creatinine Ratio 9 Glucose Level 126 H 70-105 MG/DL Calcium Level 9.1 8.5-10.1 MG/DL Corrected Calcium 9.1 8.5-10.1 MG/DL Magnesium Level 2.1 1.6-2.4 MG/DL Total Bilirubin 0.4 0.1-1.0 MG/DL Aspartate Amino Transf (AST/SGOT) 16 5-34 U/L Alanine Aminotransferase (ALT/SGPT) 25 0-55 U/L Alkaline Phosphatase 58 40-136 U/L C-Reactive Protein High Sensitivity 0.63 H 0.00-0.50 MG/DL Total Protein 7.3 6.4-8.2 GM/DL Albumin 4.0 3.2-4.5 GM/DL Lipase 44 8-78 U/L Serum Test, Qualitative NEGATIVE NEGATIVE Urine Color YELLOW Urine Clarity SL CLOUDY Urine pH 5.5 5-9 Urine Specific [place] 1.025 H 1.016-1.022 Urine Protein NEGATIVE NEGATIVE Urine Glucose (UA) 3+ H NEGATIVE Urine Ketones NEGATIVE NEGATIVE Urine Nitrite NEGATIVE NEGATIVE Urine Bilirubin NEGATIVE NEGATIVE Urine Urobilinogen 0.2 < = 1.0 MG/DL Urine Leukocyte Esterase NEGATIVE NEGATIVE Urine RBC (Auto) NEGATIVE NEGATIVE Urine RBC NONE /HPF Urine WBC 0-2 /HPF Urine Squamous Epithelial Cells 2-5 /HPF Urine Crystals NONE /LPF Urine Bacteria TRACE /HPF Urine Casts NONE /LPF Urine Mucus SMALL H /LPF Urine Culture Indicated NO My Orders Orders - NIKIA RAMIREZ MD Cbc With Automated Diff (05/09/21 07:53) Magnesium (05/09/21 07:53) Comprehensive Metabolic Panel (05/09/21 07:53) Ua Culture If Indicated (05/09/21 08:06) Hs C Reactive Protein (05/09/21 08:17) Hcg,Qualitative Serum (05/09/21 08:17) Lipase (05/09/21 08:17) Ondansetron Injection (Zofran Injectio (05/09/21 08:30) Abdomen, Flat & Upright/Decub (05/09/21 08:26) Ct Abdomen/Pelvis W (05/09/21 09:22) Iohexol Injection (Omnipaque 350 Mg/Ml 1 (05/09/21 09:45) Received Contrast (Hold Metformin- Contr (05/09/21 09:45) Ns (Ivpb) (Sodium Chloride 0.9% Ivpb Bag (05/09/21 09:45) Us Non Ob Pelvis Comp/Transvag (05/09/21 09:59) Medications Given in ED Current Medications Medications Dose Ordered Sig/Alisha Route Start Time Stop Time Status Last Admin Dose Admin Iohexol 100 ml ONCE ONCE IV 05/09/21 09:45 05/09/21 09:46 DC 05/09/21 09:34 100 ML Ondansetron HCl 8 mg ONCE ONCE IVP 05/09/21 08:30 05/09/21 08:31 DC 05/09/21 08:26 8 MG Sodium Chloride 100 ml ONCE ONCE IV 05/09/21 09:45 05/09/21 09:46 DC 05/09/21 09:34 80 ML Vital Signs/I&O 05/09/21 05/09/21 07:43 12:11 Temp 35.8 Pulse 79 79 Resp 18 18 B/P (MAP) 110/49 (69) 110/49 Pulse Ox 98 98 Blood Pressure Mean: 69 Progress Progress Note : Progress Note Patient was treated with IV fluids and Zofran. She declined pain medication. X-ray did not reveal any significant constipation. Risks and benefits of CT reviewed with patient. She elects to proceed with CT scan. CT revealed no major abnormalities requiring surgical intervention. There was however a large right ovarian cyst. Radiologist recommended further evaluation with ultrasound which was obtained. There was no torsion or other complicating feature. See discharge instructions for further discussion. Diagnostic Imaging Diagonstic Imaging: Xray Plain Films/CT/US/NM/MRI: abdomen, pelvis Comments X-ray of the abdomen and pelvis viewed by me and report reviewed. See report below: NAME: YANIQUE LOPEZ [facility] REC#: [id number] PT STATUS: REG ER : 1985 PHYSICIAN: NIKIA RAMIREZ MD ADMIT DATE: 05/09/21/ER Draft Date of Exam:05/09/21 ABDOMEN, FLAT UPRIGHT/DECUB INDICATION: Right flank pain. TIME OF EXAM: 9:07 AM. FINDINGS: No free air is identified. The bowel gas pattern is nonobstructed. There is moderate stool in the right colon. There are surgical clips in the gallbladder fossa. No pathologic calcifications are seen. IMPRESSION: No acute abnormality is detected. Dictated on workstation # [id number] Dict: 05/09/21 0906 Trans: 05/09/21 [id number] Interpreted by: ANTONIA DAVID MD Diagonstic Imaging: CT Plain Films/CT/US/NM/MRI: abdomen, pelvis Comments CT abdomen pelvis viewed by me and report reviewed. See report below: NAME: YANIQUE LOPEZ [facility] REC#: [id number] PT STATUS: REG ER : 1985 PHYSICIAN: NIKIA RAMIREZ MD ADMIT DATE: 05/09/21/ER Signed Date of Exam:05/09/21 CT ABDOMEN/PELVIS W PROCEDURE: CT abdomen and pelvis with contrast. TECHNIQUE: Multiple contiguous axial images were obtained through the abdomen and pelvis after administration of intravenous contrast. Auto Exposure Controls were utilized during the CT exam to meet ALARA standards for radiation dose reduction. All CT scans use one or more of the following dose optimizing techniques: automated exposure control, MA and/or KvP adjustment based on patient size and exam type or iterative reconstruction. INDICATION: Right-sided abdominal pain of 2 days duration. FINDINGS: There is no abnormal fecal loading. No stool within the rectal vault. There is a large right ovarian cyst measuring 3.1 x 4.7 cm, new from the prior exam. While it has no obvious complexity at CT, given its size, followup with pelvic ultrasound is suggested. The left adnexa is normal. The uterus is unremarkable. The urinary bladder was nearly empty but showed no gross pathology. There is no hydroureteronephrosis. The kidneys, adrenals, spleen, and pancreas are all unremarkable. The gallbladder is surgically absent. There is no abnormal distention of the bile ducts. An incidental splenule in the left upper quadrant is present. The liver parenchyma appears normal. The aortoiliac and mesenteric vessels are patent and nonaneurysmal. There is no appendicitis or diverticulitis. No ascites, abscess, hematoma, or acute fluid collection. IMPRESSION: 1. No bowel, biliary, or urinary tract obstruction. No abnormal fecal loading. 2. Large right adnexal cyst, presumed ovarian, measuring 4.7 cm maximally. Followup with ultrasound. 3. Otherwise, negative. Dictated by: Dictated on workstation # [id number] Dict: 05/09/21 0941 Trans: 05/09/21 0952 [id number] Interpreted by: ADAM DAUGHERTY Electronically signed by: ADAM DAUGHERTY 05/09/21 0952 Diagonstic Imaging: Ultrasound Plain Films/CT/US/NM/MRI: pelvis Comments NAME: YANIQUE LOPEZ [facility] REC#: [id number] PT STATUS: DEP ER : 1985 PHYSICIAN: NIKIA RAMIREZ MD ADMIT DATE: 05/09/21/ER Signed Date of Exam:05/09/21 US NON OB PELVIS COMP/TRANSVAG PROCEDURE: Pelvic comp/transvaginal sonogram. TECHNIQUE: Complete transabdominal and transvaginal pelvic ultrasound was performed. In addition, limited pelvic Doppler was performed. INDICATION: Right-sided ovarian cyst and right lower quadrant pain. COMPARISON: Correlation is made with the CT study performed earlier this same day. FINDINGS: The uterus is anteverted measuring 8.7 x 5.6 x 5.9 cm. The endometrium is 9 mm in thickness. No myometrial mass is identified. The right ovary measures 7.6 x 5.4 x 4.4 cm. There is a large cyst associated with the right ovary measuring 5.1 x 4.1 x 3.3 cm, correlating with the findings on CT. There is blood flow to the right ovary. The left ovary cannot be visualized. IMPRESSION: There is a 5 cm right ovarian cyst correlating with the CT abnormality. No other significant abnormality is seen. Dictated by: Dictated on workstation # [id number] Dict: 05/09/21 1126 Trans: 05/09/21 1549 [id number] Interpreted by: ANTONIA DAVID MD Electronically signed by: ANTONIA DAVID MD 05/09/21 1549 Reviewed: Reviewed by Me Departure Impression Primary Impression: Right sided abdominal pain Additional Impression: Right ovarian cyst Disposition: HOME, SELF-CARE Condition: Stable Departure-Patient Inst. Decision time for Depature: 11:50 Ref[place]: [facility] [place] Primary Care Physician IDA ALEXANDRA (Family) Primary Care Physician Patient Instructions: Severe Abdominal Pain, Adult (DC), Ovarian Cysts Add. Discharge Instructions: Your abdominal pain is likely caused by combination of recent viral gastroenteritis and a right ovarian cyst. For pain you may take a combination of ibuprofen up to 600 mg every 6 hours and Tylenol (acetaminophen) up to 1000 mg every 6 hours as needed. You may use the Zofran previously prescribed for further treatment of nausea and vomiting. Please schedule a follow-up with your primary care provider and/or women's health provider. On a rare occasion ovarian cyst require interventions for treatment. Call with questions or concerns. Return to ER if you have worsening symptoms. All discharge instructions reviewed with patient and/or family. Voiced understanding. Work/School Note: Work Release Form Date Seen in the Emergency Department: May 09, 2021 Return to Work: May 10, 2021 Restrictions: Return-No Vomiting(24hrs) Copy Copies To 1: EDWARDO CORTES JOSHUA T MD May 09, 2021 09:14
[2021-05-09] MEDS ORDERED: NS 100 ML (IVPB) BAG IV ONE (09:45)
[2021-05-09] MEDS ORDERED: HOLD METFORMIN - RECEIVED CONTRAST 20 ML VIAL IV SCH (09:45)
[2021-05-09] MEDS ORDERED: IOHEXOL 350 MG/ML 100 ML (OMNIPAQUE 350) VIAL IV ONE (09:45)
--- NOTE | 2021-05-09 09:49 | Diagnostic Imaging Report ---
PROCEDURE: CT abdomen and pelvis with contrast. TECHNIQUE: Multiple contiguous axial images were obtained through the abdomen and pelvis after administration of intravenous contrast. Auto Exposure Controls were utilized during the CT exam to meet ALARA standards for radiation dose reduction. All CT scans use one or more of the following dose optimizing techniques: automated exposure control, MA and/or KvP adjustment based on patient size and exam type or iterative reconstruction. INDICATION: Right-sided abdominal pain of 2 days duration. FINDINGS: There is no abnormal fecal loading. No stool within the rectal vault. There is a large right ovarian cyst measuring 3.1 x 4.7 cm, new from the prior exam. While it has no obvious complexity at CT, given its size, followup with pelvic ultrasound is suggested. The left adnexa is normal. The uterus is unremarkable. The urinary bladder was nearly empty but showed no gross pathology. There is no hydroureteronephrosis. The kidneys, adrenals, spleen, and pancreas are all unremarkable. The gallbladder is surgically absent. There is no abnormal distention of the bile ducts. An incidental splenule in the left upper quadrant is present. The liver parenchyma appears normal. The aortoiliac and mesenteric vessels are patent and nonaneurysmal. There is no appendicitis or diverticulitis. No ascites, abscess, hematoma, or acute fluid collection. IMPRESSION: 1. No bowel, biliary, or urinary tract obstruction. No abnormal fecal loading. 2. Large right adnexal cyst, presumed ovarian, measuring 4.7 cm maximally. Followup with ultrasound. 3. Otherwise, negative. Dictated by: Dictated on workstation # [id number]
--- NOTE | 2021-05-09 11:30 | Diagnostic Imaging Report ---
PROCEDURE: Pelvic comp/transvaginal sonogram. TECHNIQUE: Complete transabdominal and transvaginal pelvic ultrasound was performed. In addition, limited pelvic Doppler was performed. INDICATION: Right-sided ovarian cyst and right lower quadrant pain. COMPARISON: Correlation is made with the CT study performed earlier this same day. FINDINGS: The uterus is anteverted measuring 8.7 x 5.6 x 5.9 cm. The endometrium is 9 mm in thickness. No myometrial mass is identified. The right ovary measures 7.6 x 5.4 x 4.4 cm. There is a large cyst associated with the right ovary measuring 5.1 x 4.1 x 3.3 cm, correlating with the findings on CT. There is blood flow to the right ovary. The left ovary cannot be visualized. IMPRESSION: There is a 5 cm right ovarian cyst correlating with the CT abnormality. No other significant abnormality is seen. Dictated by: Dictated on workstation # [id number]
[2021-05-09 12:11] VITALS: BP 110/49
== END 2021-05-09 12:11 | disposition home or self-care (01) ==
LOC: EDUNIT# 07:29 → ER 07:31
DX: N83.201 Unspecified ovarian cyst, right side (principal); K21.9 Gastro-esophageal reflux disease without esophagitis; F41.9 Anxiety disorder, unspecified; E66.9 Obesity, unspecified; E11.9 Type 2 diabetes mellitus without complications; G89.29 Other chronic pain; M54.9 Dorsalgia, unspecified; Z68.42 Body mass index [BMI] 45.0-49.9, adult; Z79.899 Other long term (current) drug therapy; Z79.891 Long term (current) use of opiate analgesic
CPT/HCPCS: 36415; 74019; 74177; 76830; 76856; 80053; 81000; 83690; 83735; 84703; 85025; 86141

== ENCOUNTER 2021-05-27 11:48 | Emergency (ER) | payer OTHER ==
[~2021-05-27] VITALS: Ht 173 cm; Wt 149.6 kg
[2021-05-27 12:11] LABS: CLARITY,URINE CLEAR; COLOR,URINE RED; GLUCOSE, URINE (UA) 3+ (NEGATIVE); KETONES,URINE TRACE (NEGATIVE); LEUKOCYTE ESTERASE ,URINE NEGATIVE (NEGATIVE); NITRITE,URINE NEGATIVE (NEGATIVE); PROTEIN,URINE TRACE (NEGATIVE)
[2021-05-27] MEDS ORDERED: fentaNYL INJ 100 MCG/2 ML AMP IVP STA (12:16)
--- NOTE | 2021-05-27 12:19 | ED GI ---
General Chief Complaint: Abdominal/GI Problems Stated Complaint: PELVIC PAIN Nursing Triage Note: PT AMBULATORY TO ER, C/O WORSENING R PELVIC PAIN. PT HAS KNOWN OVARIAN CYSTS, REPORTS SCHEDULED TO SEE OB-SKILL TRAINING PROGRAM COORDINATOR ON 06/03, PAIN NOW UNBEARABLE. +NAUSEA AND VAGINAL BLEEDING. Source of Information: Patient Exam Limitations: No Limitations History of Present Illness Date Seen by Provider: May 27, 2021 Time Seen by Provider: 12:21 Initial Comments Patient is a 36-year-old female who presents ED with right lower quadrant abdominal pain. Pain started 2 days ago. Described as sharp with radiation to her right lower back. She states she was seen here on 09 May diagnosed with ovarian cyst. She [facility] the [facility] and was recommended come to ED for further evaluation. She started her menstrual cycle 2 days ago. Denies of any excessive heavy vaginal bleeding. She reports frequent urination without much urine production. She denies any nausea, vomiting, diarrhea. History of appendectomy and cholecystectomy. She did have a notable large ovarian cyst to her right lower quadrant when she was seen here few weeks ago. She is currently taking ibuprofen and Flexeril without much improvement. Patient in moderate distress on arrival. Denies any vaginal discharge, chest pain, shortness of breath, cough, headache. Allergies and Home Medications Allergies Coded Allergies: levofloxacin (Unverified Allergy, Mild, 07/06/09) metronidazole (Unverified Allergy, Mild, 07/06/09) ketorolac (Verified Allergy, Unknown, 12/13/05) meperidine (Verified Allergy, Unknown, 12/13/05) omeprazole (Verified Allergy, Unknown, 05/09/21) Patient Home Medication List Home Medication List Reviewed: Yes Dicyclomine HCl (Dicyclomine HCl) 20 Mg Tablet, 20 MG PO Q6H PRN for abdominal cramping Prescribed by: RAFAEL COLIN on 04/29/21 1153 Hydrocodone Bit/Acetaminophen (Vicodin 5-500 Tablet) 1 Each Tablet, 1-2 EACH PO Q4HR PRN Prescribed by: JENNIFER VILLANUEVA on 01/11/11 2329 Hydrocodone/Acetaminophen (Hydrocodone-Acetamin 5-325 mg) 1 Each Tablet, 1 TAB PO Q4H PRN for PAIN-MODERATE (5-7) Prescribed by: RANDY LONG on 05/27/21 1414 Hydroxyzine Pamoate (Hydroxyzine Pamoate) 50 Mg Capsule, 50 MG PO Q6H PRN for ANXIETY Prescribed by: NIDHI FRANCIS on 05/09/20 0010 Hyoscyamine Sulfate (Levsin-Sl) 0.125 Mg Tab.subl, 0.25 MG SL Q4H Prescribed by: NIDHI FRANCIS on 12/05/19 004 Hyoscyamine Sulfate (Levsin-Sl) 0.125 Mg Tab.subl, 1-2 TAB SL Q4H PRN for CRAMPS Prescribed by: NIKIA CLARK on 04/23/20 1108 Hyoscyamine Sulfate (Ed-Spaz) 0.125 Mg Tab.rapdis, 0.125 MG PO Q6H PRN for NAUSEA/VOMITING Prescribed by: YAN MUNGUIA on 04/27/212121 Ibuprofen (Motrin) 200 Mg Tab, 800 MG PO TID, (Reported) Entered as Reported by: VALE YEBOAH on 01/11/112309 Ibuprofen (Ibuprofen) 800 Mg Tablet, 800 MG PO Q6H PRN for PAIN-MILD Prescribed by: NIDHI FRANCIS on 12/05/1948 Multivitamins W-Iron (Flintstones With Iron) 1 Tab.chew Tab.chew, 1 TAB PO DANIELLA LY, (Reported) Entered as Reported by: VALE YEBOAH on 01/11/112309 Nitrofurantoin Monohyd/M-Cryst (Macrobid 100 mg Capsule) 100 Mg Capsule, 1 TAB PO BID Prescribed by: NIDHI FRANCIS on [birth year]/1948 Nitrofurantoin Monohyd/M-Cryst (Macrobid 100 mg Capsule) 100 Mg Capsule, 1 TAB PO BID Prescribed by: NIKIA CLARK on 04/23/20 1108 Nystatin (Nystatin) 15 Gm Oint...g., 15 GM TP BID Prescribed by: MARKY MALDONADO on 10/07/20 0002 Omeprazole (Omeprazole) 20 Mg Capsule.dr, 20 MG PO BID Prescribed by: NIKIA CLARK on 04/23/20 1111 Ondansetron (Ondansetron Odt) 8 Mg Tab.rapdis, 8 MG PO Q4H PRN for NAUSEA/VOMITING Prescribed by: NIDHI FRANCIS on 12/05/19 0049 Ondansetron (Ondansetron Odt) 4 Mg Tab.rapdis, 4 MG SL Q4H PRN for NAUSEA/VOMITING Prescribed by: NIKIA CLARK on 04/23/20 1108 Promethazine HCl (Promethazine Tablet) 25 Mg Tablet, 25 MG PO Q6H PRN for NAUSEA/VOMITING Prescribed by: RAFAEL COLIN on 04/29/21 1153 Sucralfate (Carafate) 1 Gm Tablet, 1 GM PO QID Prescribed by: NIDHI FRANCIS on 05/09/20 0010 Tramadol HCl (Ultram) 50 Mg Tablet, 50 MG PO Q4H Prescribed by: NIDHI FRANCIS on 05/09/20 0010 Review of Systems Review of Systems Constitutional: No chills, No diaphoresis, No dizziness, No fever EENTM: No Blurred Vision, No Double Vision Respiratory: Denies Cough, Denies Shortness of Air, Denies SOA With Exertion, Denies SOA at Rest Gastrointestinal: Abdominal Pain; Denies Constipated, Denies Diarrhea, Denies Nausea, Denies Vomiting Genitourinary: Denies Burning, Denies Discharge, Denies Frequency, Denies Flank Pain; Other (Vaginal bleeding) Musculoskeletal: No back pain, No joint pain Skin: No change in color, No change in hair/nails Psychiatric/Neurological: Denies Headache, Denies Numbness All Other Systems Reviewed Negative Unless Noted: Yes Past Diormmq-Lvuwls-Zpxhcb Hx Patient Social History Tobacco Use?: No Use of E-Cig and/or Vaping dev: No Substance use?: No Alcohol Use?: No Pt feels they are or have been: No Immunizations Up To Date First/Initial COVID19 Vaccinat: JULY 2020 Second COVID19 Vaccination Steven: AUGUST 2020 Third COVID19 Vaccination Date: 08/08 COVID19 Vaccine Transfusion Aide: DIANA Past Medical History Surgery/Hospitalization HX: SX" APPY, GALLBLADDER, T/A PMH: DM2 Surgeries: Yes (WISDOM TEETH REMOVAL;DX LAPAROSCOPY FOR CPP;APPY;DIANELYS;T&A; abscesses) Abdominal, Adenoidectomy, Appendectomy, Gallbladder, Tonsillectomy Respiratory: No Cardiac: Yes High Cholesterol Neurological: Yes Headaches /Migraines Last Menstrual Period: May 24, 2021 Reproductive Disorders: Yes (CHRONIC PELVIC PAIN; DYSMENORRHEA) Female Reproductive Disorders: Menstrual Problems, Endometriosis Genitourinary: No Gastrointestinal: Yes (H.PYLORI-TREATED X 2-DX WITH BREATH TEST;CHRONIC ABDOMINAL PAIN ) Gastroesophageal Reflux, Chronic Constipation, Chronic Diarrhea, Hiatal Hernia, Gall Bladder Disease Musculoskeletal: Yes Chronic Back Pain Endocrine: Yes (OBESITY, vitamin D deficiency) Diabetes, Non-Insulin dep HEENT: No Cancer: No Psychosocial: Yes Anxiety Integumentary: Yes (ABSCESSES/I&D'S, FREQUENT YEAST IN SKIN FOLDS) Blood Disorders: No Family Medical History PAST SURGICAL HISTORY: -PERIRECTAL ABSCESS I&D WITH LAP CHOLECYSTECTOMY Physical Exam Vital Signs Vital Signs - First Documented 05/27/21 11:52 Temp 35.7 Pulse 117 Resp 22 B/P (MAP) 149/75 (99) Pulse Ox 98 O2 Delivery Room Air Capillary Refill : Height/Weight/BMI Height: '" Weight: lbs. oz. kg; 49.00 BMI Method:Stated General Appearance: WD/WN, no apparent distress HEENT: PERRL/EOMI, normal ENT inspection, TMs normal, pharynx normal Neck: non-tender, full range of motion, supple, normal inspection Respiratory: chest non-tender, lungs clear, normal breath sounds, no respiratory distress, no accessory muscle use Cardiovascular: regular rate, rhythm, no edema, no gallop, no JVD Gastrointestinal: normal bowel sounds, soft, no organomegaly, no pulsatile mass, other (Right lower quadrant abdominal tenderness on palpation. Normal bowel sounds throughout. No rebound or guarding.) Extremities: normal range of motion, non-tender, normal inspection Back: normal inspection, no CVA tenderness, no vertebral tenderness Neurologic/Psychiatric: health and safety trainer II-XII nml as tested, no motor/sensory deficits, alert, normal mood/affect, oriented x 3 Progress/Results/Core Measures Results/Orders Lab Results Laboratory Tests Test 05/27/21 12:04 05/27/21 12:28 Range/Units Urine Color RED H Urine Clarity CLEAR Urine pH 6.0 5-9 Urine Specific [place] >=1.030 1.016-1.022 Urine Protein TRACE H NEGATIVE Urine Glucose (UA) 3+ H NEGATIVE Urine Ketones TRACE H NEGATIVE Urine Nitrite NEGATIVE NEGATIVE Urine Bilirubin 1+ H NEGATIVE Urine Urobilinogen 0.2 < = 1.0 MG/DL Urine Leukocyte Esterase NEGATIVE NEGATIVE Urine RBC (Auto) 3+ H NEGATIVE Urine RBC >100 H /HPF Urine WBC RARE /HPF Urine Squamous Epithelial Cells RARE /HPF Urine Crystals NONE /LPF Urine Bacteria NEGATIVE /HPF Urine Casts NONE /LPF Urine Mucus NEGATIVE /LPF Urine Culture Indicated NO Urine Test NEGATIVE NEGATIVE White Blood Count 10.7 4.3-11.0 10^3/uL Red Blood Count 4.93 3.80-5.11 10^6/uL Hemoglobin 12.9 11.5-16.0 g/dL Hematocrit 41 35-52 % Mean Corpuscular Volume 83 80-99 fL Mean Corpuscular Hemoglobin 26 25-34 pg Mean Corpuscular Hemoglobin Concent 32 32-36 g/dL Red Cell Distribution Width 14.0 10.0-14.5 % Platelet Count 345 130-400 10^3/uL Mean Platelet Volume 11.2 9.0-12.2 fL Immature Granulocyte % (Auto) 0 % Neutrophils (%) (Auto) 82 H 42-75 % Lymphocytes (%) (Auto) 13 12-44 % Monocytes (%) (Auto) 4 0-12 % Eosinophils (%) (Auto) 0 0-10 % Basophils (%) (Auto) 0 0-10 % Neutrophils # (Auto) 8.8 H 1.8-7.8 10^3/uL Lymphocytes # (Auto) 1.4 1.0-4.0 10^3/uL Monocytes # (Auto) 0.4 0.0-1.0 10^3/uL Eosinophils # (Auto) 0.0 0.0-0.3 10^3/uL Basophils # (Auto) 0.0 0.0-0.1 10^3/uL Immature Granulocyte # (Auto) 0.0 0.0-0.1 10^3/uL Sodium Level 136 135-145 MMOL/L Potassium Level 3.9 3.6-5.0 MMOL/L Chloride Level 105 98-107 MMOL/L Carbon Dioxide Level 22 21-32 MMOL/L Anion Gap 9 5-14 MMOL/L Blood Urea Nitrogen 11 7-18 MG/DL Creatinine 0.78 0.60-1.30 MG/DL Estimat Glomerular Filtration Rate 84 BUN/Creatinine Ratio 14 Glucose Level 158 H 70-105 MG/DL Calcium Level 9.1 8.5-10.1 MG/DL Corrected Calcium 9.0 8.5-10.1 MG/DL Total Bilirubin 0.6 0.1-1.0 MG/DL Aspartate Amino Transf (AST/SGOT) 12 5-34 U/L Alanine Aminotransferase (ALT/SGPT) 9 0-55 U/L Alkaline Phosphatase 60 40-136 U/L Total Protein 7.4 6.4-8.2 GM/DL Albumin 4.1 3.2-4.5 GM/DL Lipase 35 8-78 U/L My Orders Orders - BALWINDER LUNA Ua Culture If Indicated (05/27/21 11:58) Hcg,Qualitative Urine (05/27/21 11:58) Cbc With Automated Diff (05/27/21 12:16) Comprehensive Metabolic Panel (05/27/21 12:16) Lipase (05/27/21 12:16) Us Non Ob Pelvis Comp/Transvag (05/27/21 12:16) Fentanyl Inj (Sublimaze Injection) (05/27/21 12:16) Ondansetron Injection (Zofran Injectio (05/27/21 12:31) Fentanyl Inj (Sublimaze Injection) (05/27/21 12:31) Ondansetron Injection (Zofran Injectio (05/27/21 14:00) Morphine Injection (Morphine Injection (05/27/21 14:15) Medications Given in ED Current Medications Medications Dose Ordered Sig/Alisha Route Start Time Stop Time Status Last Admin Dose Admin Morphine Sulfate 4 mg ONCE ONCE IVP 05/27/21 14:15 05/27/21 14:16 DC 05/27/21 14:17 4 MG Ondansetron HCl 4 mg STK-MED ONCE .ROUTE 05/27/21 12:31 05/27/21 12:33 DC 05/27/21 12:35 4 MG Vital Signs/I&O 05/27/21 11:52 Temp 35.7 Pulse 117 Resp 22 B/P (MAP) 149/75 (99) Pulse Ox 98 O2 Delivery Room Air Blood Pressure Mean: 99 Departure Communication (Admissions) Patient was seen here May 09 diagnosed with right ovarian cyst. She started having pain again 2 days ago. She started her menstrual cycle 2 days ago. Negative for . Urinalysis negative for infection. Hematuria noted. Lab work was otherwise unremarkable. She has no right upper quadrant, epigastric or left lower quadrant tenderness. Ultrasound was ordered to rule out ovarian torsion or acute abnormality in her right lower quadrant. History of appendectomy. Ultrasound was negative. Was given IV pain medication. Patient is currently pain-free at this time. She is requesting to be discharged. She will follow up with gynecology. Pain could be secondary to her menstrual cycle however she will need further work-up. No peritoneal signs or evidence of surgical abdomen at this time. If worsening pain return back to ED for further evaluation. Will discharge with pain medication. Denies of any vaginal discharge, heavier than normal vaginal bleeding. Impression Primary Impression: Abdominal pain Disposition: HOME, SELF-CARE Condition: Stable Departure-Patient Inst. Decision time for Depature: 14:13 [place]: [facility] [place] Primary Care Physician IDA WATTERS (Family) Primary Care Physician Patient Instructions: Abdominal Pain, Adult ED Scripts Hydrocodone/Acetaminophen (Hydrocodone-Acetamin 5-325 mg) 1 Each Tablet 1 TAB PO Q4H PRN for PAIN-MODERATE (5-7), #10 TAB Prov: BALWINDER LUNA 05/27/21 Work/School Note: Work Release Form Date Seen in the Emergency Department: May 27, 2021 Return to Work: May 30, 2021 BALWINDER LUNA May 27, 2021 12:19
[2021-05-27 12:23] LABS: BACTERIA,URINE NEGATIVE /HPF; BILIRUBIN,URINE 1+ (NEGATIVE); RBC,URINE >100 /HPF; SQUAMOUS EPITHELIAL CELL,UR RARE /HPF; WBC,URINE RARE /HPF
[2021-05-27] MEDS ORDERED: ONDANSETRON 4 MG/2 ML (SDV) Z0FRAN ONE (12:31)
[2021-05-27] MEDS ORDERED: fentaNYL INJ 100 MCG/2 ML AMP ONE (12:31)
[2021-05-27 12:36] LABS: BASOPHILS % (AUTO) 0 % (0-10); EOSINOPHILS % (AUTO) 0 % (0-10); HEMATOCRIT 41 % (35-52); HEMOGLOBIN 12.9 g/dL (11.5-16.0); LYMPHOCYTES # (AUTO) 1.4 10^3/uL (1.0-4.0); LYMPHOCYTES % (AUTO) 13 % (12-44); MEAN CORPUSCULAR HEMOGLOBIN 26 pg (25-34); MEAN CORPUSCULAR HGB CONC 32 g/dL (32-36); MEAN CORPUSCULAR VOLUME 83 fL (80-99); MEAN PLATELET VOLUME 11.2 fL (9.0-12.2); MONOCYTES # (AUTO) 0.4 10^3/uL (0.0-1.0); MONOCYTES % (AUTO) 4 % (0-12); NEUTROPHILS # (AUTO) 8.8 10^3/uL (1.8-7.8); NEUTROPHILS % (AUTO) 82 % (42-75); PLATELET COUNT 345 10^3/uL (130-400); WHITE BLOOD COUNT 10.7 10^3/uL (4.3-11.0)
[2021-05-27 12:47] LABS: ALBUMIN 4.1 GM/DL (3.2-4.5)
[2021-05-27 12:48] LABS: POTASSIUM 3.9 MMOL/L (3.6-5.0)
[2021-05-27 12:49] LABS: CALCIUM 9.1 MG/DL (8.5-10.1)
[2021-05-27 12:50] LABS: TOTAL PROTEIN 7.4 GM/DL (6.4-8.2)
[2021-05-27 12:52] LABS: BILIRUBIN,TOTAL 0.6 MG/DL (0.1-1.0)
[2021-05-27 12:54] LABS: CREATININE SERUM 0.78 MG/DL (0.60-1.30)
--- NOTE | 2021-05-27 13:59 | Diagnostic Imaging Report ---
PROCEDURE: US Non-ob pelvis comp/trans. TECHNIQUE: Multiple realtime grayscale images were obtained of the pelvis in various projections endovaginally. Transabdominal imaging was also performed. INDICATION: Right lower quadrant pain. History of ovarian cyst and torsion. COMPARISON: 05/09/2021. FINDINGS: Transabdominal imaging demonstrates an unremarkable appearance of the uterus and bilateral adnexa. Transvaginal imaging was performed for further characterization. Transvaginal imaging demonstrates a uterus measuring 7.9 x 5.7 x 6.8 cm. The uterus is anteverted. No focal uterine masses are seen. The endometrium measures 1.1 cm in thickness and is unremarkable. The right ovary measures 4.5 x 3.1 x 3.4 cm. There is normal color Doppler flow within the right ovary. No focal masses seen within the right ovary. The left ovary measures 4.0 x 1.9 x 3.2 cm and demonstrates normal color Doppler flow without evidence of mass. No free fluid is seen in the pelvis. IMPRESSION: 1. Unremarkable sonographic appearance of the uterus and ovaries. No adnexal mass, torsion, or free fluid. Dictated by: Dictated on workstation # [id number]
[2021-05-27] MEDS ORDERED: ONDANSETRON 4 MG/2 ML (SDV) Z0FRAN IVP ONE (14:00)
[2021-05-27] MEDS ORDERED: ACHD5005 PO (14:14)
[2021-05-27] MEDS ORDERED: morphine INJ 10 MG/ML 1ML (SYR OR VIAL) IVP ONE (14:15)
[2021-05-27 14:34] VITALS: BP 104/53
== END 2021-05-27 14:35 | disposition home or self-care (01) ==
LOC: EDUNIT# 11:48 → ER 11:50
DX: R10.31 Right lower quadrant pain (principal); K21.9 Gastro-esophageal reflux disease without esophagitis; E11.9 Type 2 diabetes mellitus without complications; F41.9 Anxiety disorder, unspecified; E66.9 Obesity, unspecified; G89.29 Other chronic pain; M54.9 Dorsalgia, unspecified; Z68.42 Body mass index [BMI] 45.0-49.9, adult; Z79.899 Other long term (current) drug therapy; Z79.891 Long term (current) use of opiate analgesic
CPT/HCPCS: 36415; 76830; 76856; 80053; 81000; 83690; 84703; 85025

== ENCOUNTER 2021-06-05 10:37 | Emergency (ER) | payer OTHER ==
[~2021-06-05] VITALS: Ht 175.3 cm; Wt 147.4 kg
[~2021-06-05 10:37] MED LIST changes: +ACHD5005 PO
[2021-06-05] MEDS ORDERED: IBUPROFEN 800 MG (MOTRIN) TAB PO ONE (11:28)
--- NOTE | 2021-06-05 11:46 | ED Cough/URI ---
General Chief Complaint: COVID19 Suspect/Confirmed Stated Complaint: COVID + SOB Nursing Triage Note: PT AMB TO RM 9 W REPORTS OF TESTING COVID + ON SUNDAY, SYMPTOMS SX SUNDAY. PT C/O COUGH, SOA, CP WORSE W COUGH, FATIGUE, LOSS OF TASTE AND SMELL, SORE THROAT, PEÑA, AND BODY ACHES. A&OX4. History of Present Illness Date Seen by Provider: Jun 05, 2021 Time Seen by Provider: 11:00 Initial Comments 36-year-old female was diagnosed with COVID on 06/01/2021. Her symptoms began 1 day prior to that. She was started on Paxlovid 05/23/21 and is taking it as prescribed. She received 2 doses of Moderna, has not gotten her booster. History of asthma, her inhaler is . Her main complaint is feeling miserable, explained that is part of having COVID. She has no specific complaint. She denies chest pain or chest tightness, occassional chest burning, after coughing. She drank water upon waking up this morning but hasn't eaten any food, no nausea or vomiting. She has a persistent cough, productive at times. Her blood sugar was 135 this am, she has stopped her oral hyperglycemic agents while on the Paxlovid. She reports sleeping all night, not awakening for cough or SOA. Last evening, she experienced nausea and vomited twice. She has Zofran, but did not take any. She was taking Muccinex, but stopped it with the Paxlovid. This a.m. she checked her SaO2 and it was 89-90%. She took a hot shower and it improved to 95%. Upon arrival to room 10, her RA SaO2 was 97%. Through the visit, it remained 94-99%, while talking or resting. No respiratory distress. Her and children are positive for COVID, all with less symptoms. Explained she has multiple comorbidities that will increase her symptoms. She is taking Vit D, but not an immune Vitamin or Aspirin. Timing/Duration: intermittent Severity/Quality: mild, dry cough (majority of time), productive cough (occassional ) Prior Episodes/Possible Cause: no prior episodes Modifying Factors: Improves With Lying Down, Improves With Rest Associated Symptoms: cough, headache, muscle aches, nasal congestion, shortness of breath (with extreme activities, not at rest or when talking) Allergies and Home Medications Allergies Coded Allergies: levofloxacin (Unverified Allergy, Mild, 07/06/09) metronidazole (Unverified Allergy, Mild, 07/06/09) ketorolac (Verified Allergy, Unknown, 12/13/05) meperidine (Verified Allergy, Unknown, 12/13/05) omeprazole (Verified Allergy, Unknown, 05/09/21) Patient Home Medication List Home Medication List Reviewed: Yes Albuterol Sulfate (Ventolin Hfa) 1 Puff Puff, 2 PUFF INH Q4H Prescribed by: VALE CAMARENA on 06/05/21 1150 Dicyclomine HCl (Dicyclomine HCl) 20 Mg Tablet, 20 MG PO Q6H PRN for abdominal cramping Prescribed by: RAFAEL COLIN on 04/29/21 1153 Hydrocodone Bit/Acetaminophen (Vicodin 5-500 Tablet) 1 Each Tablet, 1-2 EACH PO Q4HR PRN Prescribed by: JENNIFER VILLANUEVA on 01/11/11 2329 Hydrocodone/Acetaminophen (Hydrocodone-Acetamin 5-325 mg) 1 Each Tablet, 1 TAB PO Q4H PRN for PAIN-MODERATE (5-7) Prescribed by: RANDY LONG on 05/27/21 1414 Hydroxyzine Pamoate (Hydroxyzine Pamoate) 50 Mg Capsule, 50 MG PO Q6H PRN for ANXIETY Prescribed by: NIDHI FRANCIS on 05/09/20 0010 Hyoscyamine Sulfate (Levsin-Sl) 0.125 Mg Tab.subl, 0.25 MG SL Q4H Prescribed by: NIDHI FRANCIS on 12/05/19 0049 Hyoscyamine Sulfate (Levsin-Sl) 0.125 Mg Tab.subl, 1-2 TAB SL Q4H PRN for CRAMPS Prescribed by: NIKIA CLARK on 04/23/20 1108 Hyoscyamine Sulfate (Ed-Spaz) 0.125 Mg Tab.rapdis, 0.125 MG PO Q6H PRN for NAUSEA/VOMITING Prescribed by: YAN MUNGUIA on 04/27/21 2122 Ibuprofen (Motrin) 200 Mg Tab, 800 MG PO TID, (Reported) Entered as Reported by: VALE YEBOAH on 01/11/112309 Ibuprofen (Ibuprofen) 800 Mg Tablet, 800 MG PO Q6H PRN for PAIN-MILD Prescribed by: NIDHI FRANCIS on 12/05/1948 Multivitamins W-Iron (Flintstones With Iron) 1 Tab.chew Tab.chew, 1 TAB PO DAILY, (Reported) Entered as Reported by: VALE YEBOAH on 01/11/112309 Nitrofurantoin Monohyd/M-Cryst (Macrobid 100 mg Capsule) 100 Mg Capsule, 1 TAB PO BID Prescribed by: NIDHI FRANCIS on 12/05/1948 Nitrofurantoin Monohyd/M-Cryst (Macrobid 100 mg Capsule) 100 Mg Capsule, 1 TAB PO BID Prescribed by: NIKIA CLARK on 04/23/201107 Nystatin (Nystatin) 15 Gm Oint...g., 15 GM TP BID Prescribed by: MARKY MALDONADO on 10/07/20 0002 Omeprazole (Omeprazole) 20 Mg Capsule.dr, 20 MG PO BID Prescribed by: NIKIA CLARK on 04/23/20 1111 Ondansetron (Ondansetron Odt) 8 Mg Tab.rapdis, 8 MG PO Q4H PRN for NAUSEA/VOMITING Prescribed by: NIDHI FRANCIS on 12/05/1948 Ondansetron (Ondansetron Odt) 4 Mg Tab.rapdis, 4 MG SL Q4H PRN for NAUSEA/VOMITING Prescribed by: NIKIA CLARK on 04/23/20 110 Promethazine HCl (Promethazine Tablet) 25 Mg Tablet, 25 MG PO Q6H PRN for NAUSEA/VOMITING Prescribed by: RAFAEL COLIN on 04/29/21 1153 Sucralfate (Carafate) 1 Gm Tablet, 1 GM PO QID Prescribed by: NIDHI FRANCIS on 05/09/209 Tramadol HCl (Ultram) 50 Mg Tablet, 50 MG PO Q4H Prescribed by: NIDHI FRANCIS on 05/09/20 001 Review of Systems Review of Systems Constitutional: see HPI, malaise, weakness EENTM: see HPI, nose congestion Respiratory: see HPI, cough, dyspnea on exertion Cardiovascular: no symptoms reported, see HPI Gastrointestinal: no symptoms reported, see HPI, nausea (last night), vomiting (last night) Genitourinary: no symptoms reported, see HPI All Other Systems Reviewed Negative Unless Noted: Yes Past Teqanlk-Jqueit-Pwpyid Hx Patient Social History Tobacco Use?: No Use of E-Cig and/or Vaping dev: No Substance use?: No Alcohol Use?: No Immunizations Up To Date Influenza Vaccine Up-to-Date: No; Not Current First/Initial COVID19 Vaccinat: JULY 2020 Second COVID19 Vaccination Steven: AUGUST 2020 Third COVID19 Vaccination Date: 08/08 COVID19 Vaccine [employer] Web Developer: DIANA Past Medical History Surgery/Hospitalization HX: SX: APPY, GALLBLADDER, T/A PMH: DM2 Surgeries: Yes (WISDOM TEETH REMOVAL;DX LAPAROSCOPY FOR CPP;APPY;DIANELYS;T&A; abscesses) Abdominal, Adenoidectomy, Appendectomy, Gallbladder, Tonsillectomy Respiratory: No Cardiac: Yes High Cholesterol Neurological: Yes Headaches /Migraines Last Menstrual Period: May 21, 2021 Reproductive Disorders: Yes (CHRONIC PELVIC PAIN; DYSMENORRHEA) Female Reproductive Disorders: Menstrual Problems, Endometriosis Genitourinary: No Gastrointestinal: Yes (H.PYLORI-TREATED X 2-DX WITH BREATH TEST;CHRONIC ABDOMINAL PAIN ) Gastroesophageal Reflux, Chronic Constipation, Chronic Diarrhea, Hiatal Hernia, Gall Bladder Disease Musculoskeletal: Yes Chronic Back Pain Endocrine: Yes (OBESITY, vitamin D deficiency) Diabetes, Non-Insulin dep HEENT: No Cancer: No Psychosocial: Yes Anxiety Integumentary: Yes (ABSCESSES/I&D'S, FREQUENT YEAST IN SKIN FOLDS) Blood Disorders: No Family Medical History Reviewed Nursing Family Hx PAST SURGICAL HISTORY: -PERIRECTAL ABSCESS I&D WITH LAP CHOLECYSTECTOMY Physical Exam Vital Signs - First Documented 06/05/21 11:03 Temp 36.1 Pulse 82 Resp 22 B/P (MAP) 143/100 (114) Pulse Ox 97 O2 Delivery Room Air Capillary Refill : Less Than 3 Seconds Height: '" Weight: lbs. oz. kg; 47.00 BMI Method:Stated General Appearance: WD/WN, no apparent distress, obese Eyes: Bilateral Eye Normal Inspection, Bilateral Eye PERRL, Bilateral Eye EOMI HEENT: PERRL/EOMI, normal ENT inspection, TMs normal, pharynx normal, other (oral mucosa pink and moist) Neck: non-tender, full range of motion, supple, normal inspection Respiratory: chest non-tender, lungs clear, normal breath sounds, no respiratory distress Cardiovascular: normal peripheral pulses, regular rate, rhythm Gastrointestinal: normal bowel sounds, non tender, soft, distended Extremities: normal range of motion, non-tender, normal inspection, no pedal edema, no calf tenderness, normal capillary refill Neurologic/Psychiatric: no motor/sensory deficits, alert, normal mood/affect, oriented x 3 Skin: normal color, warm/dry Progress/Results/Core Measures Suspected Sepsis SIRS Temperature: Pulse: 82 Respiratory Rate: 22 Blood Pressure 143 /100 Mean: 114 Results/Orders My Orders Orders - VALE CAMARENAP Ibuprofen Tablet (Motrin Tablet) (06/05/21 11:28) Vital Signs/I&O 06/05/21 11:03 Temp 36.1 Pulse 82 Resp 22 B/P (MAP) 143/100 (114) Pulse Ox 97 O2 Delivery Room Air Capillary Refill : Less Than 3 Seconds Blood Pressure Mean: 114 Progress Note : Time: 11:00 Progress Note Patient seen and evaluated, significant patient education provided. Discussed options at this time and offered to do labs, IV fluids and chest x-ray; her vitals are stable, lungs have no adventitious sounds, and her SaO2 has been 95% or > during my assessment. Stressed the importance of taking her medications, drinking more fluids, starting Aspirin 81 mg daily, and using an inhaler. With h er diabetes, we will not start Decadron and the Paxlovid and her Moderna vaccines will help protect her and hopefully keep her from requiring oxygen or hospital admission. She declined further workup and was appreciative of the counseling for all options to help improve her symptoms. Ibuprofen 800 mg for general discomfort, no fever at time of visit. She will monitor her glucose. She drank 8 oz of water and 8 oz of pedialyte. Encouraged she continue that, every 1-2 hours or Gatorade G2, to avoid the extra sugar. Discharge instructions, strict return precautions, and home treatment options reviewed in detail. Encouraged to call [facility] if symptoms are not improving or worsen. Departure Impression Primary Impression: COVID-19 Additional Impressions: Cough Obesity Qualified Codes: E66.01 - Morbid (severe) obesity due to excess calories; Z68.42 - Body mass index [BMI] 45.0-49.9, adult History of asthma Type 2 diabetes mellitus Qualified Codes: E11.9 - Type 2 diabetes mellitus without complications Disposition: 01 HOME, SELF-CARE Condition: Stable Departure-Patient Inst. Decision time for Depature: 11:30 Referrals: [facility] (PCP) Primary Care Physician IDA WATTERS (Family) Primary Care Physician Patient Instructions: COVID-19 (DC), Cough, Adult (DC) Add. Discharge Instructions: You can take Delsym or Robitussin Cough medicine, as directed on the bottle. Take aspirin 81 mg once daily. Use the albuterol inhaler 2 puffs every 4 hours. You must increase water intake, 16 ounces every 2 hours while awake. Continue to monitor your blood sugar. Call [facility] if symptoms are not improving or worsen. Take ibuprofen 800 mg every 6-8 hours as needed for general discomfort or fevers. Take a multivitamin that has C, D, and zinc. Continue to take all medications as prescribed from [facility]. Use the Zofran as needed for nausea or vomiting. multimedia coordinator your bathroom with a hot shower, as needed for coughing or congestion. Running a coolmist vaporizer in your room for naps and sleeping will improve your symptoms. Sleep on your stomach as you can. Walk and take deep breaths for 5 min, every hour, while awake. Monitor your Oxygen levels, if they drop below 90% take slow, deep breaths, use your inhaler, resaw machine operator bathroom with hot shower running, drink 1-2 cups of water. If they continue to stay below 90%, call [facility] or return to the ER. COVID is a virus that will take 7-10 days to recover from, you will feel exhausted and become short of breath, easier than normal. You have several other conditions that put you at increased risk. You must do everything possible to improve your chances of not needing hospitalization or getting worse. Even though you are miserable, you must take care of yourself and follow the guidelines you have been provided. All discharge instructions reviewed with patient and/or family. Voiced understanding. Scripts Albuterol Sulfate (VENTOLIN HFA) 1 Puff Puff 2 PUFF INH Q4H, #1 EA 1 Refill 1 PUFF = 90 MCG Prov: VALE CAMARENA 06/05/21 Copy Copies To 1: EDWARDO CORTES AMY ARNP Jun 05, 2021 11:46
[2021-06-05] MEDS ORDERED: RT-ALBUINH INH (11:50)
[2021-06-05 11:59] VITALS: BP 116/65
[2021-06-05] MEDS ORDERED: IBUPROFEN 800 MG (MOTRIN) TAB PO STA (12:18)
== END 2021-06-05 11:57 | disposition home or self-care (01) ==
LOC: EDUNIT# 10:37 → ER 10:42
DX: U07.1 COVID-19 (principal); E11.9 Type 2 diabetes mellitus without complications; F41.9 Anxiety disorder, unspecified; E66.9 Obesity, unspecified; G89.29 Other chronic pain; M54.9 Dorsalgia, unspecified; K21.9 Gastro-esophageal reflux disease without esophagitis; Z68.42 Body mass index [BMI] 45.0-49.9, adult; Z79.899 Other long term (current) drug therapy; Z79.891 Long term (current) use of opiate analgesic
CPT/HCPCS: 99285

== ENCOUNTER 2021-09-03 18:44 | Emergency (ER) | payer OTHER ==
[~2021-09-03] VITALS: Ht 170 cm; Wt 113.0 kg
[~2021-09-03 18:44] MED LIST changes: +RT-ALBUINH INH
[2021-09-03] MEDS ORDERED: BSS 15 ML IR ONE (19:30)
[2021-09-03] MEDS ORDERED: FLUORESCEIN (FLUOR-I-STRIPS) 1 MG STRP OU ONE (19:30)
[2021-09-03] MEDS ORDERED: TETRACAINE 0.5% OPHTH SOLN 4 ML BTL (SINGLE DOSE ONLY) OU ONE (19:30)
[2021-09-03] MEDS ORDERED: ONDANSETRON 4 MG (ZOFRAN) ORAL DISSOLVE TAB ONE (20:25)
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
[2021-09-03] MEDS ORDERED: IBUPROFEN 600 MG (MOTRIN) TAB PO ONE (20:30)
[2021-09-03] MEDS ORDERED: ONDA4TAB11 PO (20:33)
[2021-09-03 21:13] VITALS: BP 124/88
== END 2021-09-03 21:00 | disposition home or self-care (01) ==
LOC: EDUNIT# 18:44 → ER 18:47
DX: S06.0X0A Concussion without loss of consciousness, initial encounter (principal); S00.11XA Contusion of right eyelid and periocular area, initial encounter; E11.9 Type 2 diabetes mellitus without complications; E66.9 Obesity, unspecified; Z68.39 Body mass index [BMI] 39.0-39.9, adult; Y04.2XXA Assault by strike against or bumped into by another person, initial encounter
CPT/HCPCS: 99283

== ENCOUNTER 2022-01-08 13:21 | Emergency (ER) | payer OTHER ==
[~2022-01-08] VITALS: Ht 177.8 cm; Wt 145.0 kg
[~2022-01-08 13:21] MED LIST changes: +ONDA4TAB11 PO
[2022-01-08 14:15] LABS: BASOPHILS % (AUTO) 1 % (0-10); EOSINOPHILS # (AUTO) 0.1 10^3/uL (0.0-0.3); EOSINOPHILS % (AUTO) 1 % (0-10); HEMATOCRIT 40 % (35-52); HEMOGLOBIN 12.9 g/dL (11.5-16.0); LYMPHOCYTES # (AUTO) 2.4 10^3/uL (1.0-4.0); LYMPHOCYTES % (AUTO) 29 % (12-44); MEAN CORPUSCULAR HEMOGLOBIN 26 pg (25-34); MEAN CORPUSCULAR HGB CONC 32 g/dL (32-36); MEAN CORPUSCULAR VOLUME 81 fL (80-99); MEAN PLATELET VOLUME 10.6 fL (9.0-12.2); MONOCYTES # (AUTO) 0.5 10^3/uL (0.0-1.0); MONOCYTES % (AUTO) 7 % (0-12); NEUTROPHILS % (AUTO) 62 % (42-75); PLATELET COUNT 321 10^3/uL (130-400)
[2022-01-08 14:23] LABS: ALBUMIN 3.9 GM/DL (3.2-4.5); POTASSIUM 4.4 MMOL/L (3.6-5.0)
[2022-01-08 14:25] LABS: CALCIUM 9.3 MG/DL (8.5-10.1)
--- NOTE | 2022-01-08 14:25 | ED Back Pain ---
General Chief Complaint: Back Problems Stated Complaint: BACK PAIN Nursing Triage Note: PT AMB TO ED BY POV WITH C/O L LOW BACK PAIN SINCE YESTERDAY, WORSE WHEN AMB, STANDING, OR LIFTING L LEG. PT REPORTS SHE WAS CONSTIPATED OVER THE LAST WEEK AND NAUSEOUS, ALSO REPORTS INCREASED URINE FREQUENCY. DENIES FEVER, VOMITING, BURNING/PAIN WITH URINATION. Source of Information: Patient Exam Limitations: No Limitations History of Present Illness Date Seen by Provider: Jan 08, 2022 Time Seen by Provider: 14:21 Initial Comments Patient presents for evaluation of left flank pain. she states "it feels like a deep pain." She has also had increased frequency of urination, but no dysuria. She states she has never had anything like this before. She denies bloody stools, severe abdominal pain, vomiting or fever. Timing/Duration: 1 Day Severity: Moderate Method of Injury: Unknown Allergies and Home Medications Allergies Coded Allergies: levofloxacin (Unverified Allergy, Mild, 07/06/09) metronidazole (Unverified Allergy, Mild, 07/06/09) ketorolac (Verified Allergy, Unknown, 12/13/05) meperidine (Verified Allergy, Unknown, 12/13/05) omeprazole (Verified Allergy, Unknown, 05/09/21) Patient Home Medication List Home Medication List Reviewed: Yes Albuterol Sulfate (Ventolin Hfa) 1 Puff Puff, 2 PUFF INH Q4H Prescribed by: VALE CAMARENA on 06/05/21 1150 Dicyclomine HCl (Dicyclomine HCl) 20 Mg Tablet, 20 MG PO Q6H PRN for abdominal cramping Prescribed by: RAFAEL COLIN on 04/29/21 1153 Hydrocodone Bit/Acetaminophen (Vicodin 5-500 Tablet) 1 Each Tablet, 1-2 EACH PO Q4HR PRN Prescribed by: JENNIFER VILLANUEVA on 01/11/11 2329 Hydrocodone/Acetaminophen (Hydrocodone-Acetamin 5-325 mg) 1 Each Tablet, 1 TAB PO Q4H PRN for PAIN-MODERATE (5-7) Prescribed by: RANDY LONG on 05/27/21 1414 Hydroxyzine Pamoate (Hydroxyzine Pamoate) 50 Mg Capsule, 50 MG PO Q6H PRN for ANXIETY Prescribed by: NIDHI FRANCIS on 05/09/20 0010 Hyoscyamine Sulfate (Levsin-Sl) 0.125 Mg Tab.subl, 0.25 MG SL Q4H Prescribed by: NIDHI FRANCIS on 12/05/1948 Hyoscyamine Sulfate (Levsin-Sl) 0.125 Mg Tab.subl, 1-2 TAB SL Q4H PRN for CRAMPS Prescribed by: NIKIA CLARK on 04/23/201107 Hyoscyamine Sulfate (Ed-Spaz) 0.125 Mg Tab.rapdis, 0.125 MG PO Q6H PRN for NAUSEA/VOMITING Prescribed by: YAN MUNGUIA on 04/27/212121 Ibuprofen (Motrin) 200 Mg Tab, 800 MG PO TID, (Reported) Entered as Reported by: VALE YEBOAH on 01/11/112309 Ibuprofen (Ibuprofen) 800 Mg Tablet, 800 MG PO Q6H PRN for PAIN-MILD Prescribed by: NIDHI FRANCIS on 12/05/1948 Multivitamins W-Iron (Flintstones With Iron) 1 Tab.chew Tab.chew, 1 TAB PO DAILY, (Reported) Entered as Reported by: VALE YEBOAH on 01/11/112309 Nitrofurantoin Monohyd/M-Cryst (Macrobid 100 mg Capsule) 100 Mg Capsule, 1 TAB PO BID Prescribed by: NIDHI FRANCIS on 12/05/1948 Nitrofurantoin Monohyd/M-Cryst (Macrobid 100 mg Capsule) 100 Mg Capsule, 1 TAB PO BID Prescribed by: NIKIA CLARK on 04/23/201107 Nystatin (Nystatin) 15 Gm Oint...g., 15 GM TP BID Prescribed by: MARKY MALDONADO on 10/07/20 0002 Omeprazole (Omeprazole) 20 Mg Capsule.dr, 20 MG PO BID Prescribed by: NIKIA CLARK on 04/23/20 1111 Ondansetron (Ondansetron Odt) 8 Mg Tab.rapdis, 8 MG PO Q4H PRN for NAUSEA/VOMITING Prescribed by: NIDIH FRANCIS on 12/05/1948 Ondansetron (Ondansetron Odt) 4 Mg Tab.rapdis, 4 MG SL Q4H PRN for NAUSEA/VOMITING Prescribed by: NIKIA CLARK on 04/23/20 110 Ondansetron (Ondansetron Odt) 4 Mg Tab.rapdis, 4 MG PO Q8H PRN for nausea Prescribed by: RAFAEL COLIN on 09/03/212032 Promethazine HCl (Promethazine Tablet) 25 Mg Tablet, 25 MG PO Q6H PRN for NAUSEA/VOMITING Prescribed by: RAFAEL COLIN on 04/29/21 115 Sucralfate (Carafate) 1 Gm Tablet, 1 GM PO QID Prescribed by: NIDHI FRANCIS on 05/09/20 001 Tramadol HCl (Ultram) 50 Mg Tablet, 50 MG PO Q4H Prescribed by: NIDHI FRANCIS on 05/09/209 Review of Systems Constitutional: no symptoms reported EENTM: no symptoms reported Respiratory: no symptoms reported Cardiovascular: no symptoms reported Gastrointestinal: constipation (resolved per patient ) Genitourinary: No dysuria; frequency; No hematuria, No incontinence : No Past Purrbwn-Ajlyys-Chzmjd Hx Patient Social History Tobacco Use?: No Use of E-Cig and/or Vaping dev: No Substance use?: No Alcohol Use?: No Pt feels they are or have been: No Immunizations Up To Date Influenza Vaccine Up-to-Date: No; Not Current First/Initial COVID19 Vaccinat: JULY 2020 Second COVID19 Vaccination Steven: AUGUST 2020 Third COVID19 Vaccination Date: JULY 2020 COVID19 Vaccine [employer]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: [employer] Past Medical History Surgery/Hospitalization HX: SX: APPY, GALLBLADDER, T/A PMH: DM2, HIGH CHOLESTEROL Surgeries: Yes (WISDOM TEETH REMOVAL;DX LAPAROSCOPY FOR CPP;APPY;DIANELYS;T&A; abscesses) Abdominal, Adenoidectomy, Appendectomy, Gallbladder, Tonsillectomy Respiratory: No Cardiac: Yes High Cholesterol Neurological: Yes Headaches /Migraines Reproductive Disorders: Yes (CHRONIC PELVIC PAIN; DYSMENORRHEA) Female Reproductive Disorders: Menstrual Problems, Endometriosis Genitourinary: No Gastrointestinal: Yes (H.PYLORI-TREATED X 2-DX WITH BREATH TEST;CHRONIC ABDOMINAL PAIN ) Gastroesophageal Reflux, Chronic Constipation, Chronic Diarrhea, Hiatal Hernia, Gall Bladder Disease Musculoskeletal: Yes Chronic Back Pain Endocrine: Yes (OBESITY, vitamin D deficiency) Diabetes, Non-Insulin dep HEENT: No Cancer: No Psychosocial: Yes Anxiety Integumentary: Yes (ABSCESSES/I&D'S, FREQUENT YEAST IN SKIN FOLDS) Blood Disorders: No Family Medical History PAST SURGICAL HISTORY: -PERIRECTAL ABSCESS I&D WITH LAP CHOLECYSTECTOMY Physical Exam Vital Signs Vital Signs - First Documented 01/08/22 13:28 Temp 36.6 Pulse 81 Resp 16 B/P (MAP) 130/84 (99) Pulse Ox 98 O2 Delivery Room Air Capillary Refill : Less Than 3 Seconds Height, Weight, BMI Height: '" Weight: lbs. oz. kg; 45.00 BMI Method:Stated General Appearance: No Apparent Distress, WD/WN HEENT: PERRL/EOMI, TMs Normal Neck: Full Range of Motion, Normal Inspection Cardiovascular: Regular Rate, Rhythm, No Edema Respiratory: Chest Non Tender, Lungs Clear Gastrointestinal: Normal Bowel Sounds, Non Tender, Soft Back: Normal Inspection, CVA Tenderness (L), Other (left thoracic/lumbar paraspinal muscle tenderness ) Neurologic/Psychiatric: Alert, Oriented x3, delicatessen store manager II-XII Norm as Tested Skin: Normal Color, Warm/Dry Lymphatic: No Adenopathy Progress/Results/Core Measures Results/Orders Lab Results Laboratory Tests Test 01/08/22 14:08 01/08/22 14:52 Range/Units White Blood Count 8.0 4.3-11.0 10^3/uL Red Blood Count 4.92 3.80-5.11 10^6/uL Hemoglobin 12.9 11.5-16.0 g/dL Hematocrit 40 35-52 % Mean Corpuscular Volume 81 80-99 fL Mean Corpuscular Hemoglobin 26 25-34 pg Mean Corpuscular Hemoglobin Concent 32 32-36 g/dL Red Cell Distribution Width 15.4 H 10.0-14.5 % Platelet Count 321 130-400 10^3/uL Mean Platelet Volume 10.6 9.0-12.2 fL Immature Granulocyte % (Auto) 0 % Neutrophils (%) (Auto) 62 42-75 % Lymphocytes (%) (Auto) 29 12-44 % Monocytes (%) (Auto) 7 0-12 % Eosinophils (%) (Auto) 1 0-10 % Basophils (%) (Auto) 1 0-10 % Neutrophils # (Auto) 5.0 1.8-7.8 10^3/uL Lymphocytes # (Auto) 2.4 1.0-4.0 10^3/uL Monocytes # (Auto) 0.5 0.0-1.0 10^3/uL Eosinophils # (Auto) 0.1 0.0-0.3 10^3/uL Basophils # (Auto) 0.0 0.0-0.1 10^3/uL Immature Granulocyte # (Auto) 0.0 0.0-0.1 10^3/uL Sodium Level 139 135-145 MMOL/L Potassium Level 4.4 3.6-5.0 MMOL/L Chloride Level 106 98-107 MMOL/L Carbon Dioxide Level 23 21-32 MMOL/L Anion Gap 10 5-14 MMOL/L Blood Urea Nitrogen 7 7-18 MG/DL Creatinine 0.80 0.60-1.30 MG/DL Estimat Glomerular Filtration Rate 98 BUN/Creatinine Ratio 9 Glucose Level 93 70-105 MG/DL Calcium Level 9.3 8.5-10.1 MG/DL Corrected Calcium 9.4 8.5-10.1 MG/DL Total Bilirubin 0.5 0.1-1.0 MG/DL Aspartate Amino Transf (AST/SGOT) 16 5-34 U/L Alanine Aminotransferase (ALT/SGPT) 11 0-55 U/L Alkaline Phosphatase 69 40-136 U/L Total Protein 7.4 6.4-8.2 GM/DL Albumin 3.9 3.2-4.5 GM/DL Serum Test, Qualitative NEGATIVE NEGATIVE Urine Color YELLOW Urine Clarity CLEAR Urine pH 6.0 5-9 Urine Specific [place] 1.010 L 1.016-1.022 Urine Protein NEGATIVE NEGATIVE Urine Glucose (UA) 3+ H NEGATIVE Urine Ketones NEGATIVE NEGATIVE Urine Nitrite NEGATIVE NEGATIVE Urine Bilirubin NEGATIVE NEGATIVE Urine Urobilinogen 0.2 < = 1.0 MG/DL Urine Leukocyte Esterase NEGATIVE NEGATIVE Urine RBC (Auto) NEGATIVE NEGATIVE Urine RBC NONE /HPF Urine WBC RARE /HPF Urine Squamous Epithelial Cells 2-5 /HPF Urine Crystals NONE /LPF Urine Bacteria TRACE /HPF Urine Casts NONE /LPF Urine Mucus NEGATIVE /LPF Urine Culture Indicated NO My Orders Orders - JOÃO HOLM Ct Abdomen/Pelvis Wo (01/08/22 13:51) Ed Iv/Invasive Line Start (01/08/22 13:51) Cbc With Automated Diff (01/08/22 13:51) Comprehensive Metabolic Panel (01/08/22 13:51) Ua Culture If Indicated (01/08/22 13:51) Hcg,Qualitative Serum (01/08/22 13:51) Vital Signs/I&O 01/08/22 13:28 Temp 36.6 Pulse 81 Resp 16 B/P (MAP) 130/84 (99) Pulse Ox 98 O2 Delivery Room Air Blood Pressure Mean: 99 Departure Communication (Admissions) Patient is afebrile, nontoxic and in no distress. CT is negative. Lab work reassuring. No evidence or suspicion of ureterolithiasis, pyelonephritis, pneumonia, sepsis, obstruction or other emergent condition. Impression Primary Impression: Acute lumbar myofascial strain Disposition: 01 HOME, SELF-CARE Condition: Stable Departure-Patient Inst. Decision time for Depature: 15:29 Referrals: [facility] (PCP/Family) Primary Care Physician Patient Instructions: Muscle Strain, Exercise Band Exercises for the Back and Hips Scripts Methocarbamol (Methocarbamol) 750 Mg Tablet 750 MG PO Q6-8HR for Back Pain for 7 Days, #20 TAB Prov: JOÃO HOLM 01/08/22 Methylprednisolone (Methylprednisolone Dose Pack) 4 Mg Tab.ds.pk 4 MG PO UD for 6 Days, #21 PKG PER DOSE PACK INSTRUCTIONS Prov: JOÃO HOLM 01/08/22 JOÃO HOLM Jan 08, 2022 14:25
[2022-01-08 14:26] LABS: TOTAL PROTEIN 7.4 GM/DL (6.4-8.2)
[2022-01-08 14:28] LABS: BILIRUBIN,TOTAL 0.5 MG/DL (0.1-1.0)
[2022-01-08 14:29] LABS: CREATININE SERUM 0.8 MG/DL (0.60-1.30)
[2022-01-08 14:57] LABS: BILIRUBIN,URINE NEGATIVE (NEGATIVE); CLARITY,URINE CLEAR; COLOR,URINE YELLOW; GLUCOSE, URINE (UA) 3+ (NEGATIVE); KETONES,URINE NEGATIVE (NEGATIVE); LEUKOCYTE ESTERASE ,URINE NEGATIVE (NEGATIVE); NITRITE,URINE NEGATIVE (NEGATIVE); PROTEIN,URINE NEGATIVE (NEGATIVE)
--- NOTE | 2022-01-08 14:57 | Diagnostic Imaging Report ---
PROCEDURE: CT abdomen and pelvis without contrast. TECHNIQUE: Multiple contiguous axial images were obtained through the abdomen and pelvis without the use of intravenous contrast. Auto Exposure Controls were utilized during the CT exam to meet ALARA standards for radiation dose reduction. INDICATION: Low back pain. COMPARISON: Prior CT from 05/09/2021. FINDINGS: The lung bases are clear. The liver is unremarkable. Gallbladder is surgically absent. There is no biliary ductal dilatation. Pancreas and spleen are unremarkable. No adrenal mass is detected. No renal or ureteral calculi or evidence of hydronephrosis is identified. Aorta is nonaneurysmal. The small and large bowel loops are normal caliber. There is no obstruction. No free fluid is seen. Bladder and uterus are unremarkable. There is a probable cyst of the right ovary measuring 3.5 cm. Bony structures are nonacute. IMPRESSION: 1. No evidence of urinary tract calculi or obstruction. 2. Right ovarian cyst. Dictated by: Dictated on workstation # [id number]
[2022-01-08 15:04] LABS: BACTERIA,URINE TRACE /HPF; WBC,URINE RARE /HPF
[2022-01-08] MEDS ORDERED: METH4TAB10 PO (15:30)
[2022-01-08] MEDS ORDERED: METH-732 PO (15:30)
[2022-01-08 15:38] VITALS: BP 134/82
== END 2022-01-08 15:35 | disposition home or self-care (01) ==
LOC: EDUNIT# 13:21 → ER 13:23
DX: S39.012A Strain of muscle, fascia and tendon of lower back, initial encounter (principal); E66.9 Obesity, unspecified; Z68.42 Body mass index [BMI] 45.0-49.9, adult; X58.XXXA Exposure to other specified factors, initial encounter
CPT/HCPCS: 36415; 74176; 80053; 81000; 84703; 85025

== ENCOUNTER 2022-02-21 22:12 | Emergency (ER) | payer OTHER ==
[~2022-02-21 22:12] MED LIST changes: +METH-732 PO; +METH4TAB10 PO
--- NOTE | 2022-02-21 22:41 | ED Back Pain ---
General Chief Complaint: Back Problems Stated Complaint: LOW BACK R SIDE PAIN UP TO SHOULDER BLADE Nursing Triage Note: PT ARRIVAL TO ER VIA PRIVATE VEHICLE WITH SEVERE BACK PAIN X1 HOUR. PT STATES THAT SHE WAS BENT OVER TRYING TO [employer] RIDER SMALL DOG TO PUT ON BED, AND WHEN SHE STARTED UPWARDS, THE SUDDEN PAIN STARTED. PAIN IS AT A 10/10 SHARP. PT HAS HAD PAIN X1 WEEK, BUT FEELS THIS IS A DIFFERENT PAIN. PT DID TRY HEATING PAD AND IBUPROFEN HEDDLER TIER. Source of Information: Patient Exam Limitations: No Limitations History of Present Illness Date Seen by Provider: Feb 21, 2022 Time Seen by Provider: 22:24 Initial Comments Patient to the ER by private conveyance chief complaint that about an hour prior to arrival she was bending over to picker packer her dog and had a sharp shooting pain on her right back radiate down to her right buttock and up her right spine at the level of the low thoracic spine. No previous trauma or injury or back pain or work-up of back pain. No falls, recent collisions etc. She says over the past 2 days she has been having a little bit of pain that has progressively been getting worse. No hematuria or history of kidney stones. She is not having any nausea vomiting fevers chills. She had no relief from 800 mg ibuprofen before she came in. No saddle anesthesia, falls from weakness, loss of control of bowels and/or bladder or other red flag signs. Allergies and Home Medications Allergies Coded Allergies: levofloxacin (Unverified Allergy, Mild, 07/06/09) metronidazole (Unverified Allergy, Mild, 07/06/09) ketorolac (Verified Allergy, Unknown, 12/13/05) meperidine (Verified Allergy, Unknown, 12/13/05) omeprazole (Verified Allergy, Unknown, 05/09/21) Patient Home Medication List Home Medication List Reviewed: Yes Albuterol Sulfate (Ventolin Hfa) 1 Puff Puff, 2 PUFF INH Q4H Prescribed by: VALE CAMARENA on 06/05/21 1150 Cyclobenzaprine HCl (Cyclobenzaprine HCl) 10 Mg Tablet, 10 MG PO Q8H PRN for SPASMS Prescribed by: MARKY MALDONADO on 02/22/22 0252 Dicyclomine HCl (Dicyclomine HCl) 20 Mg Tablet, 20 MG PO Q6H PRN for abdominal cramping Prescribed by: RAFAEL COLIN on 04/29/21 1153 Hydrocodone Bit/Acetaminophen (Vicodin 5-500 Tablet) 1 Each Tablet, 1-2 EACH PO Q4HR PRN Prescribed by: JENNIFER VILLANUEVA on 01/11/11 2329 Hydrocodone/Acetaminophen (Hydrocodone-Acetamin 5-325 mg) 1 Each Tablet, 1 TAB PO Q4H PRN for PAIN-MODERATE (5-7) Prescribed by: RANDY LONG on 05/27/21 1414 Hydrocodone/Acetaminophen (Hydrocodone-Acetamin 5-325 mg) 5 Mg-325 Mg Tablet, 1 TAB PO Q6H PRN for PAIN-MODERATE (5-7) Prescribed by: MARKY MALDONADO on 02/22/22 0252 Hydroxyzine Pamoate (Hydroxyzine Pamoate) 50 Mg Capsule, 50 MG PO Q6H PRN for ANXIETY Prescribed by: NIDHI FRANCIS on 05/09/20 0010 Hyoscyamine Sulfate (Levsin-Sl) 0.125 Mg Tab.subl, 0.25 MG SL Q4H Prescribed by: NIDHI FRANCIS on 12/05/19 0049 Hyoscyamine Sulfate (Levsin-Sl) 0.125 Mg Tab.subl, 1-2 TAB SL Q4H PRN for CRAMPS Prescribed by: NIKIA CLARK on 04/23/20 1108 Hyoscyamine Sulfate (Ed-Spaz) 0.125 Mg Tab.rapdis, 0.125 MG PO Q6H PRN for NAUSEA/VOMITING Prescribed by: YAN MUNGUIA on 04/27/212121 Ibuprofen (Motrin) 200 Mg Tab, 800 MG PO TID, (Reported) Entered as Reported by: VALE YEBOAH on 01/11/11 2310 Ibuprofen (Ibuprofen) 800 Mg Tablet, 800 MG PO Q6H PRN for PAIN-MILD Prescribed by: NIDHI FRANCIS on 12/05/19 004 Methocarbamol (Methocarbamol) 750 Mg Tablet, 750 MG PO Q6-8HR Prescribed by: Pedro Deal on 01/08/22 153 Methylprednisolone (Methylprednisolone Dose Pack) 4 Mg Tab.ds.pk, 4 MG PO UD Prescribed by: Pedro Deal on 01/08/22 1530 Multivitamins W-Iron (Flintstones With Iron) 1 Tab.chew Tab.chew, 1 TAB PO DAILY, (Reported) Entered as Reported by: VALE YEBOAH on 01/11/11 2310 Nitrofurantoin Monohyd/M-Cryst (Macrobid 100 mg Capsule) 100 Mg Capsule, 1 TAB PO BID Prescribed by: NIDHI FRANCIS on 12/05/19 0049 Nitrofurantoin Monohyd/M-Cryst (Macrobid 100 mg Capsule) 100 Mg Capsule, 1 TAB PO BID Prescribed by: NIKIA CLARK on 04/23/20 1108 Nystatin (Nystatin) 15 Gm Oint...g., 15 GM TP BID Prescribed by: MARKY MALDONADO on 10/07/20 0002 Omeprazole (Omeprazole) 20 Mg Capsule.dr, 20 MG PO BID Prescribed by: NIKIA CLARK on 04/23/20 1111 Ondansetron (Ondansetron Odt) 8 Mg Tab.rapdis, 8 MG PO Q4H PRN for NAUSEA/VOMI TING Prescribed by: NIDHI FRANCIS on 12/05/19 004 Ondansetron (Ondansetron Odt) 4 Mg Tab.rapdis, 4 MG SL Q4H PRN for NAUSEA/VOMITING Prescribed by: NIKIA CLARK on 04/23/20 1108 Ondansetron (Ondansetron Odt) 4 Mg Tab.rapdis, 4 MG PO Q8H PRN for nausea Prescribed by: RAFAEL COLIN on 09/03/212032 Promethazine HCl (Promethazine Tablet) 25 Mg Tablet, 25 MG PO Q6H PRN for NAUSEA/VOMITING Prescribed by: RAFAEL COLIN on 04/29/21 1153 Sucralfate (Carafate) 1 Gm Tablet, 1 GM PO QID Prescribed by: NIDHI FRANCIS on 05/09/20 001 Tramadol HCl (Ultram) 50 Mg Tablet, 50 MG PO Q4H Prescribed by: NIDHI FRANCIS on 05/09/20 001 Review of Systems Constitutional: No chills, No fever EENTM: No ear discharge, No hearing loss, No ear pain Respiratory: No cough, No phlegm, No short of breath Cardiovascular: No chest pain, No edema Gastrointestinal: No abdominal pain, No nausea, No vomiting Genitourinary: No decreased output, No discharge, No dysuria Musculoskeletal: see HPI, back pain; No joint pain All Other Systems Reviewed Negative Unless Noted: Yes Past Fpzvggx-Zsuokw-Fycsii Hx Patient Social History Tobacco Use?: No Use of E-Cig and/or Vaping dev: No Substance use?: No Alcohol Use?: No Pt feels they are or have been: No Immunizations Up To Date Influenza Vaccine Up-to-Date: No; Not Current First/Initial COVID19 Vaccinat: JULY 2020 Second COVID19 Vaccination Steven: AUGUST 2020 Third COVID19 Vaccination Date: JULY 2020 COVID19 Vaccine Commercial Loan Assistant: DIANA Past Medical History Surgery/Hospitalization HX: SX: APPY, GALLBLADDER, T/A PMH: DM2, HIGH CHOLESTEROL Surgeries: Yes (WISDOM TEETH REMOVAL;DX LAPAROSCOPY FOR CPP;APPY;DIANELYS;T&A; abscesses) Abdominal, Adenoidectomy, Appendectomy, Gallbladder, Tonsillectomy Respiratory: No Cardiac: Yes High Cholesterol Neurological: Yes Headaches /Migraines Reproductive Disorders: Yes (CHRONIC PELVIC PAIN; DYSMENORRHEA) Female Reproductive Disorders: Menstrual Problems, Endometriosis Genitourinary: No Gastrointestinal: Yes (H.PYLORI-TREATED X 2-DX WITH BREATH TEST;CHRONIC ABDOMINAL PAIN ) Gastroesophageal Reflux, Chronic Constipation, Chronic Diarrhea, Hiatal Hernia, Gall Bladder Disease Musculoskeletal: Yes Chronic Back Pain Endocrine: Yes (OBESITY, vitamin D deficiency) Diabetes, Non-Insulin dep HEENT: No Cancer: No Psychosocial: Yes Anxiety Integumentary: Yes (ABSCESSES/I&D'S, FREQUENT YEAST IN SKIN FOLDS) Blood Disorders: No Family Medical History PAST SURGICAL HISTORY: -PERIRECTAL ABSCESS I&D WITH LAP CHOLECYSTECTOMY Physical Exam Vital Signs Vital Signs - First Documented 02/21/22 22:26 Temp 36.4 Pulse 99 Resp 22 B/P (MAP) 165/96 (119) Pulse Ox 98 O2 Delivery Room Air Capillary Refill : Less Than 3 Seconds Height, Weight, BMI Height: '" Weight: lbs. oz. kg; 45.00 BMI Method:Stated General Appearance: Mild Distress (Tearful), Obese HEENT: PERRL/EOMI, Pharynx Normal, Moist Mucous Membranes Neck: Full Range of Motion, Normal Inspection Cardiovascular: Regular Rate, Rhythm, Normal Peripheral Pulses Respiratory: No Accessory Muscle Use, No Respiratory Distress Back: Normal Inspection, No CVA Tenderness, Muscle Spasm (Right side tender to palpation over the lumbar spine), Vertebral Tenderness (Upper lumbar spine midline is mildly tender to palpation without deformity, crepitus or step-off.) Neurologic/Psychiatric: Alert, Oriented x3, No Motor/Sensory Deficits (Bilateral lower or upper extremities) Skin: Normal Color, Warm/Dry Progress/Results/Core Measures Results/Orders Lab Results Laboratory Tests Test 02/21/22 23:00 02/22/22 00:40 Range/Units White Blood Count 9.0 4.3-11.0 10^3/uL Red Blood Count 4.58 3.80-5.11 10^6/uL Hemoglobin 12.0 11.5-16.0 g/dL Hematocrit 38 35-52 % Mean Corpuscular Volume 82 80-99 fL Mean Corpuscular Hemoglobin 26 25-34 pg Mean Corpuscular Hemoglobin Concent 32 32-36 g/dL Red Cell Distribution Width 15.3 H 10.0-14.5 % Platelet Count 317 130-400 10^3/uL Mean Platelet Volume 11.5 9.0-12.2 fL Immature Granulocyte % (Auto) 0 % Neutrophils (%) (Auto) 67 42-75 % Lymphocytes (%) (Auto) 23 12-44 % Monocytes (%) (Auto) 7 0-12 % Eosinophils (%) (Auto) 2 0-10 % Basophils (%) (Auto) 0 0-10 % Neutrophils # (Auto) 6.0 1.8-7.8 10^3/uL Lymphocytes # (Auto) 2.1 1.0-4.0 10^3/uL Monocytes # (Auto) 0.7 0.0-1.0 10^3/uL Eosinophils # (Auto) 0.1 0.0-0.3 10^3/uL Basophils # (Auto) 0.0 0.0-0.1 10^3/uL Immature Granulocyte # (Auto) 0.0 0.0-0.1 10^3/uL Sodium Level 137 135-145 MMOL/L Potassium Level 3.8 3.6-5.0 MMOL/L Chloride Level 104 98-107 MMOL/L Carbon Dioxide Level 20 L 21-32 MMOL/L Anion Gap 13 5-14 MMOL/L Blood Urea Nitrogen 13 7-18 MG/DL Creatinine 0.82 0.60-1.30 MG/DL Estimat Glomerular Filtration Rate 95 BUN/Creatinine Ratio 16 Glucose Level 153 H 70-105 MG/DL Calcium Level 9.5 8.5-10.1 MG/DL Urine Color YELLOW Urine Clarity CLEAR Urine pH 5.5 5-9 Urine Specific [place] >=1.030 1.016-1.022 Urine Protein NEGATIVE NEGATIVE Urine Glucose (UA) 2+ H NEGATIVE Urine Ketones NEGATIVE NEGATIVE Urine Nitrite NEGATIVE NEGATIVE Urine Bilirubin NEGATIVE NEGATIVE Urine Urobilinogen 0.2 < = 1.0 MG/DL Urine Leukocyte Esterase NEGATIVE NEGATIVE Urine RBC (Auto) 2+ H NEGATIVE Urine RBC 2-5 H /HPF Urine WBC NONE /HPF Urine Squamous Epithelial Cells RARE /HPF Urine Crystals NONE /LPF Urine Bacteria TRACE /HPF Urine Casts NONE /LPF Urine Mucus SMALL H /LPF Urine Culture Indicated NO My Orders Orders - MARKY MALDONADO Ua Culture If Indicated (02/21/22 22:35) Ed Iv/Invasive Line Start (02/21/22 22:35) Fentanyl Inj (Sublimaze Injection) (02/21/22 22:45) Orphenadrine Inj (Ed Only) (Norflex Inje (02/21/22 22:45) Orphenadrine Inj (Ed Only) (Norflex Inje (02/21/22 22:45) Ondansetron Injection (Zofran Injectio (02/21/22 23:45) Cbc With Automated Diff (02/22/22 01:06) Basic Metabolic Panel (02/22/22 01:06) Ct Abd/Pelvis Wo(Kidney Stone) (02/22/22 01:06) Rx-Hydrocodone/Apap 5-325 Mg (Rx-Vicodin (02/22/22 03:00) Medications Given in ED Vital Signs/I&O 02/21/22 02/22/22 22:26 03:03 Temp 36.4 Pulse 99 92 Resp 22 22 B/P (MAP) 165/96 (119) 134/92 Pulse Ox 98 98 O2 Delivery Room Air Room Air Blood Pressure Mean: 119 Progress Progress Note #1: Time: 22:40 Progress Note Patient appears to be having lumbago with muscle spasms. We will give her 75 mcg of fentanyl IV, Norflex and get a urine specimen since she was having this pain mildly for 2 to 3 days prior. A kidney stone could be masquerading. She is quite tender to light palpation and has no rash or anything to suggest shingles. Progress Note #2: Time: 01:00 Progress Note The patient is feeling significantly better. Her nausea is gone and her pain has gotten way better. She is able to drink and hold down some water now. She had a low bit of red blood cells seen in her urine so we discussed doing a CT without IV contrast kidney stone protocol and she agreed to this. Diagnostic Imaging Diagonstic Imaging: CT Plain Films/CT/US/NM/MRI: abdomen, pelvis Comments No ureteral calculus seen. The right kidney demonstrates a nonobstructive 2 mm calyceal calculus in the lower pole. No hydronephrosis or ureterolithiasis is seen. The appendix is not visible. Bowel loops are nondilated. No pneumoperitoneum, free fluid or acute inflammatory changes are seen involving the bowel. Previous cholecystectomy. No biliary duct dilatation is seen. [facility] [place], [place] NAME: YANIQUE LOPEZ [facility] REC#: [id number] PT STATUS: DEP ER : 1985 PHYSICIAN: MARKY MALDONADO MD ADMIT DATE: 02/21/22/ER Signed Date of Exam:02/22/22 CT ABD/PELVIS WO(KIDNEY STONE) INDICATION: Right flank pain TECHNIQUE: Multiple contiguous axial images were obtained through the abdomen and pelvis without the use of intravenous contrast. Auto Exposure Controls were utilized during the CT exam to meet ALARA standards for radiation dose reduction. Comparison made to prior CT of 01/08/2022 The visualized portions of the lung bases are clear. There were no pleural fluid collections. There is no free intraperitoneal air. The liver shows no focal lesion. Patient's had previous cholecystectomy. The spleen, adrenals, and pancreas appear unremarkable. The kidneys bilaterally show no hydronephrosis. There is a tiny nonocclusive stone in the lower pole of the right kidney. There is no ureteral stone. There is no retroperitoneal mass or adenopathy. There is no ascites or abnormal fluid collection. Visualized bowel loops show no sign of obstruction. The appendix is not definitively seen but there is no inflammatory reaction at this expected location. There is no pelvic mass or free fluid. IMPRESSION: No hydronephrosis or ureteral stone. Tiny nonocclusive stone in the lower pole of the right kidney. Evidence of previous cholecystectomy. No acute finding is seen. Dictated by: Dictated on workstation # [id number] Dict: 02/22/22625 Trans: 02/22/22752 [facility] [id number] Interpreted by: KEENAN GALLAGHER MD Electronically signed by: KEENAN GALLAGHER MD 02/22/223 Reviewed: Reviewed Night Hawk Study, Reviewed by Me Departure Impression Primary Impression: Lumbago with sciatica, right side Qualified Codes: M54.41 - Lumbago with sciatica, right side Disposition: HOME, SELF-CARE Condition: Stable Departure-Patient Inst. Decision time for Depature: 02:42 Referrals: [facility] (PCP/Family) Primary Care Physician Patient Instructions: Low Back Pain (DC), Sciatica Exercises Add. Discharge Instructions: Drink plenty of fluids. Follow-up with your primary care doctor and 2 to 4 weeks for repeat urinalysis to make sure that the microscopic amount of blood seen in your urine has gone away. Tylenol 1000 mg every 8 hours as needed for pain. Motrin 800 mg every 8 hours or Aleve 2 tablets twice a day until the pain goes away. Heating pads and topical creams such as icy hot or Biofreeze may be helpful. Obtain a back brace and wear it on the days that helps. Consider follow-up with a chiropractor or physical therapy. [facility] physical therapy can be reached at [phone]. For severe breakthrough pain keeping you from being functional you may use hydrocodone 1 tablet every 6 hours as needed. Hydrocodone may cause drowsiness and should not be mixed with alcohol or operating heavy machinery, long drives etc. It may also cause constipation so I suggest Colace or similar stool softeners to stay regular. Cyclobenzaprine 1 tablet every 8 hours as needed for muscle spasms in your back. May cause drowsiness. All discharge instructions reviewed with patient and/or family. Voiced understanding. Scripts Cyclobenzaprine HCl (Cyclobenzaprine HCl) 10 Mg Tablet 10 MG PO Q8H PRN for SPASMS, #15 TAB 0 Refills Prov: MARKY MALDONADO 02/22/22 Hydrocodone/Acetaminophen (Hydrocodone-Acetamin 5-325 mg) 5 Mg-325 Mg Tablet 1 TAB PO Q6H PRN for PAIN-MODERATE (5-7), #6 TAB 0 Refills Prov: MARKY MALDONADO 02/22/22 Work/School Note: Work Release Form Date Seen in the Emergency Department: Feb 22, 2022 Return to Work: Feb 25, 2022 Restrictions: Need Release from Doctor Other Restrictions Listed Below: Do not lift, push or pull greater than 20 pounds until 03/01/2022. MARKY MALDONADO Feb 21, 2022 22:41
[2022-02-21] MEDS ORDERED: ORPHENADRINE 60 MG/2 ML (NORFLEX) AMP (ED ONLY) IM ONE (22:45)
[2022-02-21] MEDS ORDERED: fentaNYL INJ 100 MCG/2 ML AMP IVP ONE (22:45)
[2022-02-21] MEDS ORDERED: ORPHENADRINE 60 MG/2 ML (NORFLEX) AMP (ED ONLY) IV ONE (22:45)
[2022-02-21] MEDS ORDERED: ONDANSETRON 4 MG/2 ML (SDV) Z0FRAN IVP ONE (23:45)
[2022-02-22 00:47] LABS: BILIRUBIN,URINE NEGATIVE (NEGATIVE); CLARITY,URINE CLEAR; COLOR,URINE YELLOW; GLUCOSE, URINE (UA) 2+ (NEGATIVE); KETONES,URINE NEGATIVE (NEGATIVE); LEUKOCYTE ESTERASE ,URINE NEGATIVE (NEGATIVE); NITRITE,URINE NEGATIVE (NEGATIVE); PH,URINE 5.5 (5-9); PROTEIN,URINE NEGATIVE (NEGATIVE)
[2022-02-22 01:01] LABS: BACTERIA,URINE TRACE /HPF; SQUAMOUS EPITHELIAL CELL,UR RARE /HPF
[2022-02-22 01:18] LABS: BASOPHILS % (AUTO) 0 % (0-10); EOSINOPHILS # (AUTO) 0.1 10^3/uL (0.0-0.3); EOSINOPHILS % (AUTO) 2 % (0-10); HEMATOCRIT 38 % (35-52); LYMPHOCYTES # (AUTO) 2.1 10^3/uL (1.0-4.0); LYMPHOCYTES % (AUTO) 23 % (12-44); MEAN CORPUSCULAR HEMOGLOBIN 26 pg (25-34); MEAN CORPUSCULAR HGB CONC 32 g/dL (32-36); MEAN CORPUSCULAR VOLUME 82 fL (80-99); MEAN PLATELET VOLUME 11.5 fL (9.0-12.2); MONOCYTES # (AUTO) 0.7 10^3/uL (0.0-1.0); MONOCYTES % (AUTO) 7 % (0-12); NEUTROPHILS % (AUTO) 67 % (42-75); PLATELET COUNT 317 10^3/uL (130-400)
[2022-02-22 01:23] LABS: CALCIUM 9.5 MG/DL (8.5-10.1); CREATININE SERUM 0.82 MG/DL (0.60-1.30); POTASSIUM 3.8 MMOL/L (3.6-5.0)
[2022-02-22] MEDS ORDERED: ACHD5005 PO ×2 (02:45→02:52)
[2022-02-22] MEDS ORDERED: CYCL10TA25 PO ×2 (02:45→02:52)
[2022-02-22 03:03] VITALS: BP 134/92
--- NOTE | 2022-02-22 06:35 | Diagnostic Imaging Report ---
INDICATION: Right flank pain TECHNIQUE: Multiple contiguous axial images were obtained through the abdomen and pelvis without the use of intravenous contrast. Auto Exposure Controls were utilized during the CT exam to meet ALARA standards for radiation dose reduction. Comparison made to prior CT of 01/08/2022 The visualized portions of the lung bases are clear. There were no pleural fluid collections. There is no free intraperitoneal air. The liver shows no focal lesion. Patient's had previous cholecystectomy. The spleen, adrenals, and pancreas appear unremarkable. The kidneys bilaterally show no hydronephrosis. There is a tiny nonocclusive stone in the lower pole of the right kidney. There is no ureteral stone. There is no retroperitoneal mass or adenopathy. There is no ascites or abnormal fluid collection. Visualized bowel loops show no sign of obstruction. The appendix is not definitively seen but there is no inflammatory reaction at this expected location. There is no pelvic mass or free fluid. IMPRESSION: No hydronephrosis or ureteral stone. Tiny nonocclusive stone in the lower pole of the right kidney. Evidence of previous cholecystectomy. No acute finding is seen. Dictated by: Dictated on workstation # [id number]
== END 2022-02-22 03:03 | disposition home or self-care (01) ==
LOC: EDUNIT# 22:12 → ER 22:15
DX: M54.41 Lumbago with sciatica, right side (principal); E66.9 Obesity, unspecified; Z68.42 Body mass index [BMI] 45.0-49.9, adult
CPT/HCPCS: 36415; 74176; 80048; 81000; 85025; 96374; 96375

== ENCOUNTER → 2022-05-16 | Outpatient (CLI) | payer OTHER ==
[~2022-05-16] VITALS: Ht 177 cm; Wt 147.0 kg
[~2022-05-16] MED LIST changes: +AMOX500C2 PO; +ATOR10TA66 PO; +CANA1TAB4 PO; +CHOL200078 PO; +CYCL10TA25 PO; +DOCU-143 PO; +FAMO-144 PO; +FLUT9.9S NS; +LEVO5TAB28 PO; +LISI2.5T13 PO; +MONT-40 PO; +NASAL SPRAY; +OXYC-199 PO; +SEMA14TA2 PO
== END ==
LOC: PREOP 08:43
PROVIDERS: ATTEND Obstetrics & Gynecology
DX: Z01.818 Encounter for other preprocedural examination (principal); N92.1 Excessive and frequent menstruation with irregular cycle; N85.00 Endometrial hyperplasia, unspecified

== ENCOUNTER 2022-05-18 10:57 | Day surgery (SDC) | payer OTHER ==
[2022-05-18] VITALS (13 sets, daily range): BP systolic 81–115; BP diastolic 45–77
[~2022-05-18] VITALS: Ht 177 cm; Wt 147.0 kg
--- NOTE | 2022-05-18 08:00 | Progress Note-Pre Operative ---
Pre-Operative Progress Note Date of Available H&P: May 18, 2022 Date H&P Reviewed: May 18, 2022 Time H&P Reviewed: 12:14 History & Physical: H&P Reviewed, No changes noted, Changes noted below Changes from last HP Patient indicates that she can take ibuprofen in spite of her Toradol allergy Pre-Operative Diagnosis: Complex endometrial hyperplasia/menometrorrhagia DRAKE LOWE MD May 18, 2022 08:00
--- NOTE | 2022-05-18 08:01 | Progress Note-Post Operative ---
Post-Operative Progess Note Surgeon (s)/Wastewater Project Manager (s) Surgeon DRAKE LOWE MD Wastewater Project Manager: Pily Atwood Pre-Operative Diagnosis Complex endometrial hyperplasia/menometrorrhagia Post-Operative Diagnosis Same withExtensive right adnexal adhesive disease and multicystic right ovary and with pathology pending Procedure & Operative Findings Date of Procedure 05/18/22 Procedure Performed/Findings Total laparoscopic scopic hysterectomy with bilateral salpingectomyAnd with right nephrectomy and extensive adhesiolysis and cystoscopy and repair of vaginal laceration Anesthesia Type General Estimated Blood Loss Estimated blood loss (mL): 150 cc Specimens/Packing Specimens Removed Uterus and fallopian tubes DRAKE LOWE MD May 18, 2022 08:01
--- NOTE | 2022-05-18 08:13 | Discharge Inst-Surgical ---
Discharge Inst-Surgical Depart Medication/Instructions New, Converted or Re-Newed RX: Transmitted to Pharmacy Consults/Follow Up Orders & Referrals Follow Up Appt: Return to clinic in 1 week for suture removal Call to make follow up appt. for patient in 4 weeks. Activity: Rest for 24 hours, than as tolerated. Wound Care: May remove Band-Aid tomorrow. Replace as desired. Keep incisions clean and dry. Wash daily with soap and water. Please call in RX to patient pharmacy. Diet: As tolerated Shower or tub bathe as desired. No driving for 24 hours, no alcoholic beverages for 24 hours, and nothing per vagina (no tampons, douching, or intercourse) for 8 weeks. Patient to return to the clinic as soon as possible for: Temperature greater than 101F, Severe Pain, Foul discharge from incision or vagina, Excessive Bleeding (more than a period). Activity Activity as Tolerated: No Diet Discharge Diet: No Restrictions DRAKE LOWE MD May 18, 2022 08:13
[2022-05-18] MEDS ORDERED: BUP/EPI 0.25% 1:200,000 (MARCAINE) 30 ML VIAL ONE (11:01)
[2022-05-18] MEDS ORDERED: ceFAZolin INJECTION 1,000 MG in NS (IVPB) 50 ML IV ONE (11:15)
[2022-05-18 11:27] LABS: BASOPHILS # (AUTO) 0.1 10^3/uL (0.0-0.1); BASOPHILS % (AUTO) 1 % (0-10); EOSINOPHILS # (AUTO) 0.1 10^3/uL (0.0-0.3); EOSINOPHILS % (AUTO) 1 % (0-10); HEMATOCRIT 50 % (35-52); HEMOGLOBIN 16.2 g/dL (11.5-16.0); LYMPHOCYTES # (AUTO) 3.1 10^3/uL (1.0-4.0); LYMPHOCYTES % (AUTO) 30 % (12-44); MEAN CORPUSCULAR HEMOGLOBIN 27 pg (25-34); MEAN CORPUSCULAR HGB CONC 32 g/dL (32-36); MEAN CORPUSCULAR VOLUME 84 fL (80-99); MEAN PLATELET VOLUME 10.2 fL (9.0-12.2); MONOCYTES # (AUTO) 0.6 10^3/uL (0.0-1.0); MONOCYTES % (AUTO) 6 % (0-12); NEUTROPHILS # (AUTO) 6.3 10^3/uL (1.8-7.8); NEUTROPHILS % (AUTO) 62 % (42-75); PLATELET COUNT 246 10^3/uL (130-400); WHITE BLOOD COUNT 10.2 10^3/uL (4.3-11.0)
[2022-05-18 11:28] LABS: SMEAR SCAN COMMENT YES
[2022-05-18] MEDS: LACTATED RINGERS 1,000 ML IV PRN ×2 (11:31→13:05)
[2022-05-18] MEDS ORDERED: fentaNYL INJ 100 MCG/2 ML AMP ONE (12:03)
[2022-05-18] MEDS ORDERED: MIDAZOLAM 2 MG/2 ML (VERSED) VIAL ONE (12:03)
[2022-05-18] MEDS ORDERED: BUP/EPI 0.25% 1:200,000 (MARCAINE) 30 ML VIAL INJ ONE (13:06)
[2022-05-18] MEDS ORDERED: HYDROmorphone 2 MG/ML VIAL (DILAUDID) ONE (13:37)
[2022-05-18] MEDS ORDERED: INDIGO CARMINE 8 MG/ML 5 ML AMP ONE (13:41)
[2022-05-18] MEDS ORDERED: ONDANSETRON 4 MG/2 ML (SDV) Z0FRAN ONE (13:44)
[2022-05-18] MEDS ORDERED: LIDOCAINE PF 2% 5 ML (XYLOCAINE) VIAL ONE (13:44)
[2022-05-18] MEDS ORDERED: SUCCINYLCHOLINE INJ 20 MG/1 ML 10 ML VIAL ONE (13:44)
[2022-05-18] MEDS ORDERED: FUROSEMIDE 40 MG/4 ML INJ (LASIX) ONE (13:44)
[2022-05-18] MEDS ORDERED: proPOfol 200 MG/20 ML (DIPRIVAN) VIAL IV ONE (13:44)
[2022-05-18] MEDS ORDERED: ROCURONIUM 50 MG/5 ML (ZEMURON) VIAL IV ONE (13:44)
[2022-05-18] MEDS ORDERED: SEVOFLURANE (ULTANE) 15 ML INHAL SOLN ONE (14:30)
[2022-05-18] MEDS ORDERED: ONDANSETRON 4 MG/2 ML (SDV) Z0FRAN IVP PRN (14:45)
[2022-05-18] MEDS ORDERED: HYDROmorphone 2 MG/ML VIAL (DILAUDID) IV ONE (14:45)
[2022-05-18] MEDS ORDERED: oxyCODONE/APAP 5/325MG (PERCOCET 5) TABLET PO PRN (15:00)
[2022-05-18] MEDS ORDERED: fentaNYL INJ 100 MCG/2 ML AMP IVP PRN (15:00)
[2022-05-18] MEDS: D5 LR IV SOLUTION 1,000 ML IV SCH (16:29)
[2022-05-18] MEDS: ONDANSETRON 4 MG/2 ML (SDV) Z0FRAN IVP PRN ×2 (17:07→20:57)
[2022-05-18] MEDS: IBUPROFEN 800 MG (MOTRIN) TAB PO SCH (20:13)
[2022-05-18] MEDS ORDERED: SIMETHICONE 80 MG (MYLICON) CHEW ONE (20:55)
[2022-05-18] MEDS: SIMETHICONE 80 MG (MYLICON) CHEW PO SCH (20:58)
--- NOTE | 2022-05-18 22:13 | OPERATIVE REPORT ---
DATE OF SERVICE: 05/18/2022 PREOPERATIVE DIAGNOSES: Menometrorrhagia and atypical endometrial hyperplasia. POSTOPERATIVE DIAGNOSES: Menometrorrhagia and atypical endometrial hyperplasia with pathology pending. OPERATIVE PROCEDURES: Total laparoscopic hysterectomy with bilateral salpingectomies, right oophorectomy, adhesiolysis, cystoscopy and repair of vaginal laceration. DESCRIPTION OF PROCEDURE: With the patient in the supine position, under satisfactory general anesthesia, she was repositioned in the dorsal lithotomy position in the [facility] and prepped and draped in the usual fashion for abdominal and vaginal surgery using robotic assistance. Weighted speculum placed in the posterior fornix of vagina, cervix exposed and grasped anteriorly with single tooth tenaculum. The uterus was sounded to 12 cm with uterine sound. The cervix was then serially dilated with Daryl dilators to accommodate a TRELL II manipulator, which was placed with a 6 mm x 8 cm uterine probe and a 30 mm colpotomy ring. Sutures of #1 Vicryl were placed at 3 and 9 o'clock position of the cervix to affix the uterus to the manipulator. Here, Phan catheter was placed in the urinary bladder. Tenaculum and speculum were removed and the patient was brought to the low dorsal lithotomy position. A 12 mm incision was made superior to the umbilicus in the midline. Veress needle was placed through that incision into the abdominal cavity. Correct placement was confirmed with a water drop test. The abdomen was insufflated with 2.7 liters of carbon dioxide. The Veress needle was removed and a 12 mm port was placed through the incision. Laparoscope was introduced. The abdominal wall was transilluminated and ports of 8 mm were placed through incisions of those sizes 8 cm lateral to the umbilicus and about 4 cm above the umbilicus. The patient was placed in Trendelenburg allowing the bowel to spill out of the pelvis. The da Mendy column was advanced on the patient and docked. Operative instruments were placed in the right and left lateral ports and I retired to the da Mendy console at the console using the vessel sealer on the right and bipolar fenestrated grasper on the left. The pelvis was first examined. The pelvis was somewhat distorted with extensive adhesions and extensive involvement of multilocular cystic areas and endometriosis involving the right adnexa, the posterior surface of the uterus, the cul-de-sac and right pelvic sidewall. The fallopian tube was distended and distorted and had massive adhesive disease as well. The left tube and ovary were relatively normal appearing. The uterus was involved with several lobular nodular lesions consistent with uterine fibroids. Laparoscope was rotated to the appendix, was surgically absent. The laparoscope was brought back to the pelvis. Neither ureter could be identified due to the distortion in the pelvis. Decision was made to go ahead with the intended procedure being total laparoscopic hysterectomy with bilateral salpingectomies and in addition decision was to go ahead with a right oophorectomy due to the distortion and the abnormal appearance of the ovary. The right tube and ovary were grasped and elevated. The IP ligament was carefully clamped, cauterized, and divided, allowing access to the retroperitoneal space, which was developed in an effort to identify the ureter. The ureter never was seen with this dissection. The inference being that the ureter was deeper in the pelvis and what it was necessary for me to dissect because I had dissected down below the level of the cervix, which was below, but I would be transecting to do the hysterectomy and I did not encounter the ureter with very careful and meticulous dissection. With that done, the adnexa was freed. The round ligament was clamped, cauterized and divided and dissection was carried down to the cardinal ligament. There was significant distortion of the uterosacral ligament on the right that was clamped, cauterized, and divided as well with the right side of the uterus dealt with the left fallopian tube was grasped and elevated. The mesosalpinx was clamped, cauterized, and divided. That was continued over to the utero-ovarian pedicle was clamped, cauterized, and divided with the vessel sealer as well. Then, dissection was carried across the round ligament, down the broad ligament down to the cardinal ligament on the left. With that done, the anterior lower uterine segment and peritoneum were now divided initially with a vessel sealer, allowing the bladder to be dissected down off the lower uterine segment and then using monopolar casey, the balance of the adhesions, particularly at the right posterior surface of the uterus and the cardinal ligaments were clamped, cauterized, and divided with the vessel sealer or taken down with the monopolar casey. A colpotomy incision was now started at the 12 o'clock position down to the colpotomy ring. Incision was continued circumferentially until the entire colpotomy ring was exposed. Again, the uterus being relatively enlarged with multiple fibroids and having both tubes and the right ovary still attached was extracted through the vagina with some difficulty due to its size. With the uterus removed, the pelvis was irrigated, examined for hemostasis, but that being satisfactory. The vaginal cuff was closed with a single suture of V-Loc barbed suture starting from the right angle and continuing across to the left angle in the usual manner to good hemostasis and good reapproximation. The pelvis was examined again for hemostasis that being complete and neither ureter again being clearly identifiable, but with the inference being that they were well out of the way. The laparoscopic portion of the procedure was complete and terminated. The operative instruments were removed under direct vision as were the ports. The abdomen was evacuated of the insufflating gas in the process of removing the ports. The patient's skin incisions were closed with interrupted nylon sutures. The fascia at the supraumbilical incision was closed with [id number]-[id number] suture of 2-0 Vicryl. Now using saline as a distending medium, the bladder was examined by performing a cystoscopy. The patient had been given an amp of indigo carmine and 20 mg of Lasix. By the time, the cystoscopy was performed. Both ureters were easily identifiable and were spilling blue tinted urine freely into the bladder. With confirmation of the integrity of the ureters and the bladder confirmed, the cystoscopy was complete and terminated. The speculum was replaced in the vagina. There was some bleeding, had a right sulcus laceration near the apex of the vagina. This was repaired with a single 2-0 Vicryl Rapide suture. There was a small laceration at the right periurethral area and there was a small laceration in the posterior fourchette just at the hymenal ring. All of these lacerations were repaired with 2-0 Vicryl suture affecting reapproximation and complete hemostasis. Sponge and needle counts were correct at the end of the procedure. Blood loss was around 100-150 mL. The patient was now uneventfully awakened from her general anesthesia and transferred to the recovery room in stable condition. The Phan catheter was left to dependent drainage with plans for removal once the patient was fully awake. Job ID: [id number] DocumentID: [id number] Dictated Date: 05/18/2022 17:23:15 Banana Handler Date: 05/18/2022 21:35:00 Dictated By: DRAKE LOWE MD
[2022-05-19] MEDS: D5 LR IV SOLUTION 1,000 ML IV SCH (00:23)
[2022-05-19 00:25] VITALS: BP 121/66
[2022-05-19] MEDS: IBUPROFEN 800 MG (MOTRIN) TAB PO SCH ×2 (02:52→07:58)
[2022-05-19 04:30] VITALS: BP 108/59
[2022-05-19] MEDS ORDERED: ONDANSETRON 4 MG (ZOFRAN) ORAL DISSOLVE TAB PO ONE (06:30)
--- NOTE | 2022-05-19 07:49 | Progress Note ---
Standard Progress Note Progress Notes/Assess & Plan Date Seen by a Provider: May 19, 2022 Time Seen by a Provider: 07:48 Progress/Assessment & Plan This patient is without complaint. She is ambulating, voiding, tolerating oral intake well. She denies headache, she denies shortness of breath, she denies nausea after having received nausea medicine this morning. She has no chest pain. She does have occasional abdominal cramping as would be expected Vital Signs Date Time Temp Pulse Resp B/P (MAP) Pulse Ox O2 Delivery O2 Flow Rate FiO2 05/19/22 04:30 36.9 81 18 108/59 (75) 93 Room Air 05/19/22 00:25 36.9 85 18 121/66 (84) 93 Room Air 05/18/22 19:57 36.0 72 18 107/66 (80) 94 Room Air 05/18/22 19:26 98 0.00 21 05/18/22 18:10 36.7 73 16 111/59 (76) 93 Room Air 05/18/22 17:30 95 Room Air 05/18/22 17:00 36.2 71 16 115/57 (76) 97 Nasal Cannula 1.00 05/18/22 16:40 95 Nasal Cannula 2.00 05/18/22 16:20 36.1 75 16 109/59 (76) 95 Nasal Cannula 3.00 3.00 05/18/22 15:50 36.2 76 16 106/55 (72) 94 Nasal Cannula 4.00 4.00 05/18/22 15:27 Nasal Cannula 4.00 05/18/22 15:20 36.2 16 104/61 (75) 93 Nasal Cannula 4.00 05/18/22 15:10 Nasal Cannula 4.00 05/18/22 15:10 17 103/62 (76) 92 OxyMask 4.00 05/18/22 15:00 17 107/49 (68) 92 OxyMask 4.00 05/18/22 14:55 OxyMask 4.00 05/18/22 14:50 16 107/53 (71) 92 OxyMask 6.00 05/18/22 14:40 OxyMask 8.00 05/18/22 14:40 16 96/62 (73) 96 OxyMask 8.00 05/18/22 14:30 16 87/45 (59) 92 OxyMask 10.00 05/18/22 14:25 37.0 18 81/46 (58) 93 OxyMask 10.00 05/18/22 14:25 OxyMask 10.00 05/18/22 11:25 35.7 88 20 115/77 (90) 94 Room Air I & O 05/19/22 07:00 Intake Total 1750 ml Output Total 2850 ml Balance -1100 ml Vital signs are stable. Patient is afebrile. The abdomen is benign. The surgical incisions are clean and dry Extremities show no clubbing or cyanosis. There is no Homans' sign. Pelvic exam was deferred Assessment and plan Postoperative day #1 doing well. Plans for routine convalescent care with discharge home when patient is fully ambulatory and her cramps and pain are resolved and/or controlled Final Diagnosis Menometrorrhagia/atypical hyperplasia of the endometrium DRAKE LOWE MD May 19, 2022 07:49
[2022-05-19 07:57] VITALS: BP 112/58
[2022-05-19] MEDS: SIMETHICONE 80 MG (MYLICON) CHEW PO SCH (07:57)
--- NOTE | 2022-05-19 08:02 | Anesthesia-General Post-Op ---
General Patient Condition Mental Status/LOC: Same as Preop Cardiovascular: Satisfactory Nausea/Vomiting: Absent Respiratory: Satisfactory Pain: Controlled Complications: Absent Post Op Complications Complications None Follow Up Care/Instructions Patient Instructions None needed. Anesthesia/Patient Condition Patient Condition Patient is doing well, no complaints, stable vital signs, no apparent adverse anesthesia problems. No complications reported per nursing. MARKUS RENEE CRNA May 19, 2022 08:02
[2022-05-19] MEDS ORDERED: DOCUSATE SODIUM 100 MG (COLACE) CAP PO SCH (09:00)
[2022-05-19 10:08] VITALS: BP 112/58
== END 2022-05-19 10:08 | disposition home or self-care (01) ==
LOC: SDC 10:57 → WS 15:33 → SDC 05-19 10:08
PROVIDERS: ATTEND Obstetrics & Gynecology
DX: C54.1 Malignant neoplasm of endometrium (principal); N73.6 Female pelvic peritoneal adhesions (postinfective); S31.41XA Laceration without foreign body of vagina and vulva, initial encounter; S37.33XA Laceration of urethra, initial encounter; D25.1 Intramural leiomyoma of uterus; N80.03 Adenomyosis of the uterus; N83.11 Corpus luteum cyst of right ovary; E66.01 Morbid (severe) obesity due to excess calories; E28.2 Polycystic ovarian syndrome; Z68.42 Body mass index [BMI] 45.0-49.9, adult; X58.XXXA Exposure to other specified factors, initial encounter
CPT/HCPCS: 36415; 82947; 84703; 85025; 87081

== ENCOUNTER 2022-06-13 10:18 | Outpatient (RCR) | payer OTHER | END 2022-06-20 | disposition home or self-care (01) | LOC: ONC 10:18 | PROVIDERS: ATTEND Internal Medicine Hematology & Oncology | DX: C54.1 Malignant neoplasm of endometrium (principal) | CPT/HCPCS: 86304; G0463; 99204 ==

== ENCOUNTER → 2023-03-13 | Outpatient (CLI) | payer OTHER | LOC: CARD 14:16 | PROVIDERS: ATTEND Internal Medicine Cardiovascular Disease | DX: R07.89 Other chest pain (principal) | CPT/HCPCS: 93306 ==

== ENCOUNTER → 2023-03-20 | Outpatient (CLI) | payer OTHER ==
[~2023-03-20] MED LIST changes: +CATHETER FLUSH 10 ML SYR IVP PRN; +REGADENOSON 0.4 MG/5 ML SYR IV ONE
[2023-03-20 09:26] VITALS: BP 136/92
--- NOTE | 2023-03-29 10:52 | STRESS TEST ---
DATE OF SERVICE: 03/20/2023 RESTING AND POST REGADENOSON TECHNETIUM-99M TETROFOSMIN SPECT CT IMAGING ORDERING PHYSICIAN: Jodi De León MD; DIANA; NIDHI; JAGUAR; PRIMARY PHYSICIAN: [facility]. CLINICAL DIAGNOSIS: Chest discomfort. Baseline images were carried out after injection of 10.01 mCi of technetium-99m tetrofosmin. This was followed by 0.4 mg regadenoson and 29 mCi of technetium-99m tetrofosmin for stress imaging. She tolerated the procedure well. Review of images at rest and following stress indicates a patchy tracer uptake. There is no distinct evidence of myocardial ischemia or infarction. Gated images show normal global left ventricular systolic function without distinct regional wall motion abnormality. Left ventricular ejection fraction is calculated to be 63%. TID is absent (0.99). CONCLUSIONS: 1. No evidence of significant myocardial ischemia or infarction on this study. 2. Normal regional wall motion. 3. Normal global left systolic function with a calculated ejection fraction of 63%. Job ID: [id number] DocumentID: [id number] Dictated Date: 03/29/2023 09:59:08 Nursing Faculty Date: 03/29/2023 10:50:00 Dictated By: JODI DE LEÓN MD; DIANA; NIDHI; JAGUAR;
== END ==
LOC: CARD 07:12
PROVIDERS: ATTEND Internal Medicine Cardiovascular Disease
DX: R07.89 Other chest pain (principal)
CPT/HCPCS: 78452; 93017; A9502

== ENCOUNTER 2023-04-19 14:13 | Emergency (ER) | payer OTHER ==
[~2023-04-19] VITALS: Ht 175.2 cm; Wt 142.8 kg
[~2023-04-19 14:13] MED LIST changes: -CATHETER FLUSH 10 ML SYR IVP PRN; -REGADENOSON 0.4 MG/5 ML SYR IV ONE
[2023-04-19 15:06] LABS: BASOPHILS % (AUTO) 1 % (0-10); EOSINOPHILS # (AUTO) 0.1 10^3/uL (0.0-0.3); EOSINOPHILS % (AUTO) 2 % (0-10); HEMATOCRIT 46 % (35-52); HEMOGLOBIN 15.2 g/dL (11.5-16.0); LYMPHOCYTES # (AUTO) 1.7 10^3/uL (1.0-4.0); LYMPHOCYTES % (AUTO) 28 % (12-44); MEAN CORPUSCULAR HEMOGLOBIN 30 pg (25-34); MEAN CORPUSCULAR HGB CONC 33 g/dL (32-36); MEAN CORPUSCULAR VOLUME 90 fL (80-99); MEAN PLATELET VOLUME 11.2 fL (9.0-12.2); MONOCYTES # (AUTO) 0.4 10^3/uL (0.0-1.0); MONOCYTES % (AUTO) 6 % (0-12); NEUTROPHILS # (AUTO) 3.8 10^3/uL (1.8-7.8); NEUTROPHILS % (AUTO) 63 % (42-75); PLATELET COUNT 252 10^3/uL (130-400)
--- NOTE | 2023-04-19 15:07 | ED Upper Extremity ---
General Chief Complaint: Upper Extremity Stated Complaint: RT ARM PAIN | BURNING SENSATION Nursing Triage Note: PT AMB TO FT1 WITH CC OF OF RIGHT WRIST AND FOREARM PAIN THAT STARTED 3 DAYS AGO. PT STATES THAT SHE HAS A BURNING SENSATION THAT STARTS IN HER PALM AND RADIATES UP HER FOREARM. NO KNOWN TRAUMA. Source: patient Exam Limitations: no limitations History of Present Illness Date Seen by Provider: Apr 19, 2023 Time Seen by Provider: 14:21 Initial Comments Yanique is a 37 year old woman who presents to the ER with complaints of severe right upper extremity pain extending form the proximal hand to the proximal forearm. She has taken Tylenol without relief. She denies any trauma to the RUE or the neck, past or present. She knows of no cervical pathology. She has no neck pain. She had a fall 2 weeks ago but does not believe there was any injury to the RUE or the neck. The fall was 2 weeks ago and her wrist symptoms have only been present for about 3 days. She tried using a brace she had at home but that seemed to make the symptoms worse. 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 The pain seems seems to start at the very proximal hand and does not involve the fingers. It extends nearly to the wrist. The severity of pain and distribution would be atypical for initial presentation of carpel tunnel syndrome. She rates her pain as 7/10 at this time. There appears to be some slight swelling and bruising discoloration on the ventral aspect of the right wrist. Pain is characterized by a burning sensation and is extremely sensitive to the touch. The most intense focus seems to be at the lateral ventral wrist proximal to the thumb. Allergies and Home Medications Allergies Coded Allergies: levofloxacin (Unverified Allergy, Mild, 05/16/22) metronidazole (Unverified Allergy, Mild, 05/16/22) avocado (Verified Allergy, Unknown, 05/19/22) banana (Verified Allergy, Unknown, 05/19/22) ketorolac (Verified Allergy, Unknown, 05/16/22) kiwi (Verified Allergy, Unknown, 05/19/22) latex (Unverified Allergy, Unknown, 05/18/22) Patient states that she has not a reaction to latex, but has had minor reactions to things in the "latex" group meperidine (Verified Allergy, Unknown, 05/16/22) omeprazole (Verified Allergy, Unknown, 05/16/22) Patient Home Medication List Home Medication List Reviewed: Yes Amoxicillin (Amoxicillin) 500 Mg Capsule, 500 MG PO BID, (Reported) Entered as Reported by: RONALD MICHEL on 05/16/22 1229 Atorvastatin Calcium (Atorvastatin Calcium) 10 Mg Tablet, 10 MG PO HS, (Reported) Entered as Reported by: RONALD MICHEL on 05/16/22 1229 Canagliflozin/Metformin HCl (Invokamet 150-1,000 mg Tablet) 150 Mg-1,000 Mg Tablet, 2 EACH PO HS, (Reported) Entered as Reported by: RONALD MICHEL on 05/16/22 1229 Cholecalciferol (Vitamin D3) (Vitamin D3) 50 Mcg (2000 Unit) Tab.chew, 50 MCG PO DAILY, (Reported) Entered as Reported by: RONALD MICHEL on 05/16/22 1229 Docusate Sodium (Colace) 100 Mg Capsule, 100 MG PO BID Prescribed by: DRAKE MARS on 05/18/22 0811 Famotidine (Acid Django Developer (FAMOTIDINE)) 10 Mg Tablet, 10 MG PO BID, (Reported) Entered as Reported by: RONALD MICHEL on 05/16/22 1229 Fluticasone Propionate (Flonase Allergy Relief) 50 Mcg/Actuation [place].susp, 1 SPRAY NS DAILY, (Reported) Entered as Reported by: RONALD MICHEL on 05/16/22 1229 Hydrocodone/Acetaminophen (Hydrocodone-Acetamin 5-325 mg) 5 Mg-325 Mg Tablet, 1 TAB PO Q4H PRN for PAIN-MODERATE (5-7) Prescribed by: DEIDRE HALL MD on 04/20/23 1524 Last Action: New Order Levocetirizine Dihydrochloride (Xyzal) 5 Mg Tablet, 5 MG PO HS, (Reported) Entered as Reported by: RONALD MICHEL on 05/16/22 1229 Lisinopril (Lisinopril) 2.5 Mg Tablet, 2.5 MG PO DAILY, (Reported) Entered as Reported by: RONALD MICHEL on 05/16/22 1229 Montelukast Sodium (Montelukast Sodium) 10 Mg Tablet, 10 MG PO HS, (Reported) Entered as Reported by: RONALD MICHEL on 05/16/22 1229 Multivitamins W-Iron (Flintstones With Iron) 1 Tab.chew Tab.chew, 1 TAB PO DAILY, (Reported) Entered as Reported by: VALE YEBOAH on 01/11/11 2310 Oxycodone HCl/Acetaminophen (Percocet 5-325 mg Tablet) 5 Mg-325 Mg Tablet, 1 TAB PO Q4H PRN for PAIN-MODERATE Prescribed by: DRAKE MARS on 05/18/22 0812 Semaglutide (Rybelsus) 14 Mg Tablet, 14 MG PO DAILY AM AC, (Reported) Entered as Reported by: RONALD MICHEL on 05/16/22 1229 [Nasal [place]] , (Reported) Entered as Reported by: RONALD MICHEL on 05/16/221228 Review of Systems Constitutional: no symptoms reported EENTM: no symptoms reported Respiratory: no symptoms reported Cardiovascular: no symptoms reported Gastrointestinal: no symptoms reported Genitourinary: no symptoms reported : No Musculoskeletal: see HPI Skin: no symptoms reported Psychiatric/Neurological: See HPI Past Whdidrq-Uyyikz-Qatxyb Hx Patient Social History Tobacco Use?: No Use of E-Cig and/or Vaping dev: No Substance use?: No Alcohol Use?: No Immunizations Up To Date First/Initial COVID19 Vaccinat: 2020 Second COVID19 Vaccination Steven: 2020 Third COVID19 Vaccination Date: 2020 Seasonal Allergies Seasonal Allergies: Yes Past Medical History Surgery/Hospitalization HX: SX: APPY, GALLBLADDER, T/A, PILONIDAL CYST PMH: DM2, HIGH CHOLESTEROL, CANCER, ASTHMA Surgeries: Yes (WISDOM TEETH REMOVAL;DX LAPAROSCOPY FOR CPP;APPY;DIANELYS;T&A; abscesses) Abdominal, Adenoidectomy, Appendectomy, Gallbladder, Hysterectomy, Tonsillectomy Respiratory: Yes (INHALER PRN) Asthma Currently Using CPAP: No Currently Using BIPAP: No Cardiac: Yes High Cholesterol Neurological: Yes Headaches /Migraines Reproductive Disorders: Yes (CHRONIC PELVIC PAIN; DYSMENORRHEA) Female Reproductive Disorders: Menstrual Problems, Endometriosis Genitourinary: No Gastrointestinal: Yes Gastroesophageal Reflux, Chronic Constipation, Chronic Diarrhea, Hiatal Hernia, Gall Bladder Disease Musculoskeletal: Yes Chronic Back Pain Endocrine: Yes (OBESITY, vitamin D deficiency) Diabetes, Non-Insulin dep HEENT: No Cancer: Yes (endometrial ) Did You Recieve Any Treatments: Yes What Type of Treatment Did You: Surgical Intervention Psychosocial: Yes Anxiety Integumentary: Yes (ABSCESSES/I&D'S, FREQUENT YEAST IN SKIN FOLDS) Blood Disorders: No Family Medical History PAST SURGICAL HISTORY: -PERIRECTAL ABSCESS I&D WITH LAP CHOLECYSTECTOMY Physical Exam Vital Signs Vital Signs - First Documented 04/19/23 14:28 Pulse 74 B/P (MAP) 119/80 (93) Pulse Ox 99 O2 Delivery Room Air Capillary Refill : Height, Weight, BMI Height: '" Weight: lbs. oz. kg; 46.00 BMI Method:Stated General Appearance: WD/WN, moderate distress HEENT: normal ENT inspection Neck: non-tender, normal inspection Cardiovascular: regular rate, rhythm, no edema, no murmur Respiratory: lungs clear, normal breath sounds, no respiratory distress Shoulder: normal inspection, non-tender, no evidence of injury, normal ROM Wrist: Yes bone tenderness, Yes ecchymosis, Yes limited ROM, Yes pain, Yes soft tissue tenderness, Yes swelling Hand: Right (as described in HPI) Neurologic/Psychiatric: lav crewman II-XII nml as tested, no motor/sensory deficits, alert, normal mood/affect, oriented x 3 Skin: normal color, warm/dry, ecchymosis Progress/Results/Core Measures Results/Orders Lab Results Laboratory Tests Test 04/19/23 14:55 04/19/23 15:11 Range/Units White Blood Count 6.0 4.3-11.0 10^3/uL Red Blood Count 5.06 3.80-5.11 10^6/uL Hemoglobin 15.2 11.5-16.0 g/dL Hematocrit 46 35-52 % Mean Corpuscular Volume 90 80-99 fL Mean Corpuscular Hemoglobin 30 25-34 pg Mean Corpuscular Hemoglobin Concent 33 32-36 g/dL Red Cell Distribution Width 12.9 10.0-14.5 % Platelet Count 252 130-400 10^3/uL Mean Platelet Volume 11.2 9.0-12.2 fL Immature Granulocyte % (Auto) 0 % Neutrophils (%) (Auto) 63 42-75 % Lymphocytes (%) (Auto) 28 12-44 % Monocytes (%) (Auto) 6 0-12 % Eosinophils (%) (Auto) 2 0-10 % Basophils (%) (Auto) 1 0-10 % Neutrophils # (Auto) 3.8 1.8-7.8 10^3/uL Lymphocytes # (Auto) 1.7 1.0-4.0 10^3/uL Monocytes # (Auto) 0.4 0.0-1.0 10^3/uL Eosinophils # (Auto) 0.1 0.0-0.3 10^3/uL Basophils # (Auto) 0.0 0.0-0.1 10^3/uL Immature Granulocyte # (Auto) 0.0 0.0-0.1 10^3/uL Erythrocyte Sedimentation Rate 16 0-20 MM/HR Sodium Level 137 135-145 MMOL/L Potassium Level 3.7 3.6-5.0 MMOL/L Chloride Level 104 98-107 MMOL/L Carbon Dioxide Level 24 21-32 MMOL/L Anion Gap 9 5-14 MMOL/L Blood Urea Nitrogen 14 7-18 MG/DL Creatinine 0.78 0.60-1.30 MG/DL Estimat Glomerular Filtration Rate 100 BUN/Creatinine Ratio 18 Glucose Level 142 H 70-105 MG/DL Uric Acid 4.9 2.6-7.2 MG/DL Calcium Level 9.2 8.5-10.1 MG/DL Corrected Calcium 9.0 8.5-10.1 MG/DL Total Bilirubin 0.7 0.1-1.0 MG/DL Aspartate Amino Transf (AST/SGOT) 14 5-34 U/L Alanine Aminotransferase (ALT/SGPT) 19 0-55 U/L Alkaline Phosphatase 71 40-136 U/L C-Reactive Protein High Sensitivity 0.42 0.00-0.50 MG/DL Total Protein 7.6 6.4-8.2 GM/DL Albumin 4.2 3.2-4.5 GM/DL D-Dimer < 0.27 0.00-0.49 UG/ML My Orders Orders - NIKIA RAMIREZ MD Cbc And Automated Diff (04/19/23 14:36) Comprehensive Metabolic Panel (04/19/23 14:36) Hs C Reactive Protein (04/19/23 14:36) Erythrocyte Sedimentation Rate (04/19/23 14:36) Uric Acid (04/19/23 14:36) Wrist, Right, 3 Views Or More (04/19/23 14:36) Fibrin Degradation Products (04/19/23 15:07) Ct Extremity Upper Right Wo (04/19/23 15:41) Morphine Injection (Morphine Injection (04/19/23 16:13) Ondansetron Oral Dissolve Tab (Ondanset (04/19/23 16:15) Medications Given in ED Vital Signs/I&O Blood Pressure Mean: 93 Progress Progress Note : Progress Note Labs were obtained and interpreted by me. Labs were unremarkable including CBC, ESR, D-dimer, CRP, CMP, and uric acid. X-rays were viewed by me. No obvious fractures were appreciated. Radiologist's report questioned scaphoid fracture. This was not appreciated in follow-up imaging with CT by either me or the radiologist. Ultimately the cause of her pain was uncertain. She found a ride home and was given an IM dose of morphine prior to discharge. Follow-up with orthopedics was recommended. She has seen Dr. Santacruz in the past and plans to follow-up there. Diagnostic Imaging Diagonstic Imaging: Xray Plain Films/CT/US/NM/MRI: other (right wrist) Comments NAME: YANIQUE LOPEZ MED REC#: [id number] PT STATUS: REG ER : 1985 PHYSICIAN: NIKIA RAMIREZ MD ADMIT DATE: 04/19/23/ER Signed Date of Exam:04/19/23 WRIST, RIGHT, 3 VIEWS OR MORE HISTORY: Right wrist pain. TECHNIQUE: Three views of the right wrist. COMPARISON: None. FINDINGS: There is subtle cortical irregularity at the lateral aspect of the distal right scaphoid. This is seen on a single view. Alignment is normal and joint spaces are preserved. No cortical erosions are seen. The pronator fat pad is not displaced. IMPRESSION: Suspect nondisplaced fracture of the right scaphoid. Recommend correlation with point tenderness and, if indicated, consider cross-sectional imaging. Dictated by: Dictated on workstation # [id number] Dict: 04/19/23 1502 Trans: 04/19/23 1540 [id number] Interpreted by: NELDA CHOUDHARY MD Electronically signed by: NELDA CHOUDHARY MD 04/19/23 1540 Diagonstic Imaging: CT Plain Films/CT/US/NM/MRI: other (right wrist) Comments NAME: YANIQUE LOPEZ MED REC#: [id number] PT STATUS: REG ER : 1985 PHYSICIAN: NIKIA RAMIREZ MD ADMIT DATE: 04/19/23/ER Signed Date of Exam:04/19/23 CT EXTREMITY UPPER RIGHT WO PROCEDURE: CT right upper extremity without contrast. TECHNIQUE: Multiple contiguous axial images were obtained through the right upper extremity without the use of intravenous contrast. Sagittal and coronal reformations were then performed. Auto Exposure Controls were utilized during the CT exam to meet ALARA standards for radiation dose reduction. INDICATION: Suspected scaphoid fracture on radiographs. Right wrist pain. COMPARISON: Radiographs from the same day. FINDINGS: The [id number] is large for evaluation of the wrist and scaphoid, but no acute fracture is seen. The cortical irregularity observed on the prior radiographs may represent the tubercle overlapping the cortex on the frontal view. No joint effusion is seen. Alignment appears normal. Joint spaces appear preserved. No focal muscular atrophy is seen. Ligaments and tendons are not well evaluated by CT. If pain persists, nonemergent MRI could be considered to further evaluate. IMPRESSION: 1. No acute fracture is seen in the right wrist. Dictated by: Dictated on workstation # [id number] Dict: 04/19/23 1611 Trans: 04/19/23 1626 [id number] Interpreted by: NELDA CHOUDHARY MD Electronically signed by: NELDA CHOUDHARY MD 04/19/23 1626 Departure Impression Primary Impression: Right wrist pain Disposition: 01 HOME, SELF-CARE Condition: Stable Departure-Patient Inst. Decision time for Depature: 16:37 Referrals: YENNIFER KING APRN (PCP/Family) Primary Care Physician Patient Instructions: Opioids for Short-Term Treatment of Pain ED Add. Discharge Instructions: The exact cause of your pain is uncertain based on your ER visit. No fractures were seen on x-rays or CT scan. Use a brace as needed for support. Elevation and icing may also be helpful in reducing pain and swelling. Use hydrocodone for primary pain control. If this does not effectively control pain call back try gabapentin (Neurontin). Follow-up with orthopedics and/or your primary care provider soon as possible for further evaluation. Avoid use of the right hand and wrist is much as possible until further evaluation can be performed. Return to care if you have worsening symptoms despite following these instructions. All discharge instructions reviewed with patient and/or family. Voiced understanding. Scripts Hydrocodone/Acetaminophen (Hydrocodone-Acetamin 5-325 mg) 5 Mg-325 Mg Tablet 1 TAB PO Q4H PRN for PAIN-MODERATE (5-7) for 3 Days, #12 TAB Prov: DEIDRE HALL DO 04/20/23 Copy Copies To 1: [facility] [place] Copies To 2: ORLANDO SANTACRUZ MD, JOSHUA T MD Apr 19, 2023 15:07
[2023-04-19 15:14] LABS: ALBUMIN 4.2 GM/DL (3.2-4.5); POTASSIUM 3.7 MMOL/L (3.6-5.0)
[2023-04-19 15:15] LABS: CALCIUM 9.2 MG/DL (8.5-10.1)
[2023-04-19 15:16] LABS: TOTAL PROTEIN 7.6 GM/DL (6.4-8.2)
[2023-04-19 15:18] LABS: BILIRUBIN,TOTAL 0.7 MG/DL (0.1-1.0)
[2023-04-19 15:20] LABS: CREATININE SERUM 0.78 MG/DL (0.60-1.30)
[2023-04-19 15:23] LABS: URIC ACID 4.9 MG/DL (2.6-7.2)
[2023-04-19 15:55] LABS: ERYTHROCYTE SEDIMENTATION RATE 16 MM/HR (0-20)
[2023-04-19] MEDS ORDERED: morphine INJ 10 MG/ML 1ML (SYR OR VIAL) IM STA (16:13)
[2023-04-19] MEDS ORDERED: ONDANSETRON 4 MG ORAL DISSOLVE TABLET SL ONE (16:15)
--- NOTE | 2023-04-19 16:22 | Diagnostic Imaging Report ---
PROCEDURE: CT right upper extremity without contrast. TECHNIQUE: Multiple contiguous axial images were obtained through the right upper extremity without the use of intravenous contrast. Sagittal and coronal reformations were then performed. Auto Exposure Controls were utilized during the CT exam to meet ALARA standards for radiation dose reduction. INDICATION: Suspected scaphoid fracture on radiographs. Right wrist pain. COMPARISON: Radiographs from the same day. FINDINGS: The [id number] is large for evaluation of the wrist and scaphoid, but no acute fracture is seen. The cortical irregularity observed on the prior radiographs may represent the tubercle overlapping the cortex on the frontal view. No joint effusion is seen. Alignment appears normal. Joint spaces appear preserved. No focal muscular atrophy is seen. Ligaments and tendons are not well evaluated by CT. If pain persists, nonemergent MRI could be considered to further evaluate. IMPRESSION: 1. No acute fracture is seen in the right wrist. Dictated by: Dictated on workstation # [id number]
[2023-04-19 17:14] VITALS: BP 113/80
[2023-04-20] MEDS ORDERED: ACHD5005 PO (15:24)
== END 2023-04-19 17:13 | disposition home or self-care (01) ==
LOC: EDUNIT# 14:13 → ER 14:15
DX: S60.211A Contusion of right wrist, initial encounter (principal); E66.9 Obesity, unspecified; Z68.42 Body mass index [BMI] 45.0-49.9, adult; Z91.040 Latex allergy status; X58.XXXA Exposure to other specified factors, initial encounter
CPT/HCPCS: 36415; 73110; 73200; 80053; 84550; 85025; 85379; 85652; 86141